=== PATIENT | female | born 1940 | race Caucasian/White ===

== ENCOUNTER → 2017-02-17 09:06 | Outpatient (CLI) | payer MEDICARE, BC ==
[2015-09-11 14:21] VITALS: BMI 28.0
[~2017-02-17 09:06] MED LIST: ANASTROZOLE1 MG PO; ARMOUR THYROID120 MG PO; ATIVAN1 MG OR; EFFEXOR25 MG PO; IPRAT-ALBUT 0.5-3 ML UPD; LASIX20 MG PO; MEGACE 20 MG TA20 MG PO; POTASSIUM20 MEQ/11; ZOFRAN4 MG PO
== END | disposition home or self-care (01) ==
LOC: D.RT 09:00
DX: J45.909 Unspecified asthma, uncomplicated (principal)

== ENCOUNTER → 2017-11-28 13:45 | Outpatient (CLI) | payer MEDICARE, BC ==
[2015-09-11 14:21] VITALS: BMI 28.0
[2017-11-28 15:37] LABS: CREATININE - SERUM 0.7 mg/dL (0.6-1.3)
== END | disposition home or self-care (01) ==
LOC: D.LAB 13:00 → D.RT 14:00
PROVIDERS: Internal Medicine Pulmonary Disease
DX: R07.9 Chest pain, unspecified (principal); J45.909 Unspecified asthma, uncomplicated

== ENCOUNTER → 2018-08-02 13:17 | Outpatient (CLI) | payer MEDICARE, BC ==
[2015-09-11 14:21] VITALS: BMI 28.0
== END | disposition home or self-care (01) ==
LOC: D.RT 13:00
DX: J45.909 Unspecified asthma, uncomplicated (principal)

== ENCOUNTER → 2019-03-01 12:41 | Outpatient (CLI) | payer MEDICARE, BC ==
[2015-09-11 14:21] VITALS: BMI 28.0
== END | disposition home or self-care (01) ==
LOC: D.RT 12:41
PROVIDERS: ATTEND Internal Medicine Pulmonary Disease
DX: J45.909 Unspecified asthma, uncomplicated (principal)

== ENCOUNTER 2019-08-23 13:44 | Inpatient (IN) | payer MEDICARE, BC ==
[~2019-08-23] VITALS: Ht 162.6 cm; Wt 77.9 kg
--- NOTE | ~2019-08-23 | CN ---
PATIENT NAME:SEBASTIAN IRELAND MEDICAL RECORD: [id number] : 38 LOCATION:D.Alanna D.2136 ADMIT DATE: 08/23/19 ACCOUNT: [id number] CONSULTING PHYSICIAN: ERIC CLAUDIO MD REFERRING PHYSICIAN: MILDRED RODGERS MD DATE OF CONSULTATION: 08/23/2019 DIAGNOSES: 1. Non-Q-wave myocardial infarction. 2. Coronary artery disease. 3. Shortness of breath, dyspnea on exertion. 4. Pneumonia. 5. Metastatic breast cancer. 6. Hemoptysis. 7. Chronic obstructive pulmonary disease. 8. Hypertension. HISTORY OF PRESENT ILLNESS: Mrs. Ireland has been more short of breath with a productive cough of discolored sputum for the past 2 days. Today, she started having hemoptysis as well for the past 2 days as well. She has had chest pain. She had severe chest pain last night that awoke her. Her troponin is positive. Her EKG is with no acute ST-T changes. She has a history of coronary artery disease. She had a cardiac catheterization in 2012 with mild coronary artery disease, not enough for an intervention at that time. She is followed by Dr. Russell for her metastatic breast cancer and Dr. Lim for her COPD. Her chest x-ray is compatible with metastatic breast cancer as well as significant pneumonia on the left upper and left lower lobes. PHYSICAL EXAMINATION: CONSTITUTIONAL/GENERAL APPEARANCE: Well nourished, well developed, appears stated age. EYES: Lids and conjunctivae noninjected. No discharge. No pallor. ENT: Lips within normal limit. No cyanosis. No pallor. NECK: Carotid arteries, bilateral normal upstroke. No bruits. No thrills. No jugular venous pressure or distention. CERVICAL LYMPH NODES: Nontender. Nonenlarged. THYROID: Not enlarged. No nodules. CARDIOVASCULAR: Precordial exam, nondisplaced. No heaves or pericardial thrills. Rate and rhythm, regular. Heart sounds, normal S1, normal S2. No S3, no gallop, no rub. Systolic murmur, not heard. Diastolic murmur, not heard. RESPIRATORY: Respiratory effort, unlabored. Normal curvature. No thoracic deformity. No chest wall tenderness. Percussion, resonant. Auscultation, clear. No wheezes, no rales, no rhonchi. ABDOMEN: Soft, nondistended, nontender. No abdominal pain, no vomiting and normal appetite. MUSCULOSKELETAL: No joint tenderness, normal gait, normal tone. SKIN: Warm and dry. OVERALL IMPRESSION: Non-Q-wave myocardial infarction. At this time, we will treat medically secondary to her multiple other medical problems, we will add a nitrate as well as aspirin. The aspirin may have to be discontinued if the hemoptysis worsens. We will continue her beta gilmre with the metoprolol. We will get an echocardiogram. Otherwise, no other cardiac workup or treatment is necessary. Mainstay of treatment will be pulmonary in CONSULT REPORT [id number] SEBASTIAN IRELAND treating the pneumonia. TRANSINT:[id number] Voice Confirmation ID: [id number] DOCUMENT ID: [id number] ERIC CLAUDIO MD CC: [id number] DICTATION DATE: 08/23/19 1543 VIOLIN REPAIRER: 08/24/19 0009 ADM IN [facility] [address] [id number]
[2019-08-23] MEDS ORDERED: MECLIZINE HCL25 MG PO (13:59)
[2019-08-23] MEDS ORDERED: METOPROLOL TART25 MG PO (13:59)
[2019-08-23] MEDS ORDERED: SINGULAIR10 MG PO (13:59)
[2019-08-23] MEDS ORDERED: NULEV0.125 MG PO (14:00)
[2019-08-23] MEDS ORDERED: CARAFATE1 G PO (14:02)
[2019-08-23] MEDS ORDERED: VISTARIL25 MG PO (14:02)
[2019-08-23] MEDS ORDERED: K-DUR20 MEQ PO (14:03)
[2019-08-23] MEDS ORDERED: ZOFRAN ODT4 MG/UDTAB PO (14:04)
[2019-08-23] MEDS ORDERED: [UNRECOGNIZED DRUG - MIXTURE] (14:05)
[2019-08-23] MEDS ORDERED: [UNRECOGNIZED DRUG - OTHER] (14:07)
[2019-08-23] MEDS ORDERED: PEPCID40 MG PO (14:08)
[2019-08-23 14:35] LABS: BASOPHILS 0.2 % (0-2); EOSINOPHILS 0 % (0-7); HEMATOCRIT 35.6 % (36.0-48.0); HEMOGLOBIN 11.6 g/dL (12-16); IMMATURE GRANULOCYTES 0.8 % (0-5); LYMPHOCYTES 3.1 % (15-50); MCH 31.7 pg (26.0-34.0); MCHC 32.6 g/dL (31.0-37.0); MCV 97.3 fL (80.0-100.0); MEAN PLATELET VOLUME 9.7 fL (7.4-10.4); MONOCYTES 5.8 % (2-11); NEUTROPHILS 90.1 % (40-80); PLATELET COUNT 238 10x3/uL (130-400); RBC 3.66 10x6/uL (4.00-5.40); RDW 12.7 % (11.5-14.5); WBC 15.6 10x3/uL (4.8-10.8)
[2019-08-23 14:40] LABS: CALC OSMOLALITY 283 mosm/kg (275-300); CHLORIDE - SERUM 104 mmol/L (98-107); CREATININE - SERUM 1.1 mg/dL (0.6-1.3); POTASSIUM - SERUM 5.1 mmol/L (3.5-5.1); SODIUM 139 mmol/L (136-145); UREA NITROGEN 21 mg/dL (7-18); eGFR NON AFRICAN AMERICAN 51 mL/min (90-120)
[2019-08-23 14:41] LABS: GLUCOSE 149 mg/dL (74-106)
[2019-08-23 14:51] LABS: INR 1.09 (0.85-1.17); PROTIME 14.1 SECONDS (11.6-15.0)
[2019-08-23 14:52] LABS: APTT 27.7 SECONDS (22.8-39.4)
[2019-08-23 15:07] LABS: ALBUMIN 2.6 g/dL (3.4-5.0); ALKALINE PHOSPHATASE 48 U/L (46-116); ALT (SGPT) 15 U/L (10-68); BILIRUBIN - TOTAL 0.53 mg/dL (0.2-1.3); CKMB 2.3 U/L (0.0-3.6); CREATINE KINASE 45 UL (21-215); PRO BNP 5980 pg/mL (0-450); PROTEIN - SERUM 6.7 g/dL (6.4-8.2)
[2019-08-23 15:14] LABS: TROPONIN-I 0.833 ng/mL (0.000-0.060)
[2019-08-23 15:35] LABS: APPEARANCE HAZY (CLEAR); BACTERIA MODERATE /hpf (NEGATIVE); BILIRUBIN NEGATIVE (NEGATIVE); COLOR DK YELLOW (YELLOW); EPITHELIAL CELLS 0-5 /hpf (0-5); GLUCOSE NEGATIVE (NEGATIVE); HYALINE CAST OCC /lpf (NONE SEEN); KETONE NEGATIVE (NEGATIVE); MUCUS <1+ /lpf (NONE SEEN); NITRITE NEGATIVE (NEGATIVE); PROTEIN TRACE mg/dL (NEGATIVE); RED CELLS - URINE NONE SEEN /hpf (0-5); SPECIFIC GRAVITY 1.015 (1.005-1.020); UROBILINOGEN NORMAL (NORMAL); WHITE CELLS - URINE 0-5 /hpf (NEGATIVE)
[2019-08-23 21:19] LABS: CKMB 1.2 U/L (0.0-3.6); CREATINE KINASE 44 UL (21-215)
[2019-08-23 21:20] LABS: TROPONIN-I 1.002 ng/mL (0.000-0.060)
[2019-08-23] MEDS ORDERED: FLUTICASONE PRO16 GM NASAL (22:01)
[2019-08-24] VITALS: BP 133/45
[2019-08-24 02:35] VITALS: BP 140/64; BMI 29.4
[2019-08-24 03:11] LABS: BASOPHILS 0.2 % (0-2); EOSINOPHILS 1.1 % (0-7); HEMATOCRIT 29.5 % (36.0-48.0); HEMOGLOBIN 9.7 g/dL (12-16); IMMATURE GRANULOCYTES 0.3 % (0-5); LYMPHOCYTES 8.8 % (15-50); MCH 31.4 pg (26.0-34.0); MCHC 32.9 g/dL (31.0-37.0); MCV 95.5 fL (80.0-100.0); MEAN PLATELET VOLUME 9.7 fL (7.4-10.4); MONOCYTES 7.7 % (2-11); NEUTROPHILS 81.9 % (40-80); PLATELET COUNT 208 10x3/uL (130-400); RBC 3.09 10x6/uL (4.00-5.40); RDW 12.7 % (11.5-14.5); WBC 12.1 10x3/uL (4.8-10.8)
[2019-08-24 04:00] VITALS: BP 115/47
[2019-08-24 04:01] LABS: CALC OSMOLALITY 278 mosm/kg (275-300); CALCIUM 8.8 mg/dL (8.5-10.1); CARBON DIOXIDE 26.9 mmol/L (21.0-32.0); CHLORIDE - SERUM 105 mmol/L (98-107); CKMB 1.3 U/L (0.0-3.6); CREATINE KINASE 38 UL (21-215); GLUCOSE 99 mg/dL (74-106); MAGNESIUM - SERUM 1.6 mg/dL (1.8-2.4); POTASSIUM - SERUM 4.5 mmol/L (3.5-5.1); SODIUM 138 mmol/L (136-145); TROPONIN-I 0.628 ng/mL (0.000-0.060); UREA NITROGEN 21 mg/dL (7-18); eGFR NON AFRICAN AMERICAN 57 mL/min (90-120)
--- NOTE | 2019-08-24 06:49 | NUR ---
PT RESTING IN BED A/O X4 WITH AT BEDSIDE. PT COMPLAINS OF PAIN WHEN TAKING A BREATH. VSS. BED LOW CALL LIGHT WITHIN REACH. WILL CONTINUE TO MONITOR
--- NOTE | 2019-08-24 07:38 | NUR ---
PATIENT IS RESTING QUIETLY AT THIS TIME. DENIES ANY NEED. FAMILY AT BEDSIDE.
[2019-08-24 09:38] LABS: CKMB 1.5 U/L (0.0-3.6); CREATINE KINASE 33 UL (21-215); TROPONIN-I 0.538 ng/mL (0.000-0.060)
[2019-08-24 09:50] VITALS: BP 90/44
--- NOTE | 2019-08-24 10:52 | NUR ---
02 SAT IS 90% , CALLED RESPIRATORY. PATIENT LOOKS GOOD, SHE IS NOT IN ANY DISTRESS. RESPIRATORY IS ASSESSING HER.
[2019-08-24 15:08] VITALS: Ht 162.6 cm; Wt 77.9 kg
[2019-08-24 17:23] VITALS: BP 105/48
--- NOTE | 2019-08-24 17:26 | NUR ---
PATIENT IS RESTING ON HER BACK IN BED. AT BEDSIDE. SHE HAS BEEN REQUESTING A SHOWER, HOWEVER SHE IS GETTING ANTIBIOTICS BACK TO BACK, AND IT IS NOT GOOD TIMING . WE WILL ALLOW HER TO SHOWER SOON IT IS SAFE FOR HER.
--- NOTE | 2019-08-24 19:28 | NUR ---
GREETED PATIENT AND INTRODUCED MYSELF HER NURSE. PATIENT IS LAYING IN BED RESTING QUIETLY. AOX4. RESPIRATIONS EVEN. NO S/S OF DISTRESS. STATES NO PAIN AT THIS TIME. DENIES ANY FURTHER NEEDS. CALL LIGHT IN REACH.
[2019-08-24 20:00] VITALS: BP 147/58
--- NOTE | 2019-08-24 23:21 | NUR ---
PT. RESTING QUIETLY WITH EYES CLOSED. RESPIRATIONS EVEN. NO S/S OF DISTRESS. CALL LIGHT IN REACH.
--- NOTE | 2019-08-24 23:30 | NUR ---
DC INFILTRATED PERIPHERAL IV IN RIGHT WRIST. PT. TOLERATED PROCEDURE.
[2019-08-25] VITALS: BP 128/50
--- NOTE | 2019-08-25 00:06 | NUR ---
NEW 22 GAUGE PERIPHERAL IV IN RIGHT FOREARM, SECOND ATTEMPT. PT. TOLERATED PROCEDURE.
--- NOTE | 2019-08-25 02:05 | NUR ---
PT. RESTING QUIETLY WITH EYES CLOSED. RESPIRATIONS EVEN. NO S/S OF DISTRESS. O2 AT 4L IN USE VIA NC. CALL LIGHT IN REACH.
[2019-08-25 04:00] VITALS: BP 103/52
[2019-08-25 06:46] LABS: BASOPHILS 0.4 % (0-2); EOSINOPHILS 2.5 % (0-7); HEMATOCRIT 29.4 % (36.0-48.0); HEMOGLOBIN 9.6 g/dL (12-16); IMMATURE GRANULOCYTES 0.5 % (0-5); LYMPHOCYTES 6.6 % (15-50); MCH 31.4 pg (26.0-34.0); MCHC 32.7 g/dL (31.0-37.0); MCV 96.1 fL (80.0-100.0); MEAN PLATELET VOLUME 9.5 fL (7.4-10.4); MONOCYTES 6.5 % (2-11); NEUTROPHILS 83.5 % (40-80); PLATELET COUNT 237 10x3/uL (130-400); RBC 3.06 10x6/uL (4.00-5.40); RDW 12.9 % (11.5-14.5); WBC 10.4 10x3/uL (4.8-10.8)
--- NOTE | 2019-08-25 07:21 | NUR ---
PT ALERT AND ORIENTED, UP BY SELF TO THE BATHROOM. SON AND AT BEDSIDE. UPON EXITING THE BATHROOM PT STATES "I HAVE SOME GOOD NEWS FOR YOU, WELL NOT GOOD NEWS I GUESS. I WENT TO THE BATHROOM AND ACCIDENTLY PULLED ANOTHER I/V OUT! I DIDN'T SAY ANYTHING TO JAXON (NIGHT RN) BECAUSE SHE WAS BUSY BUT I'LL TELL YOU". WILL RESITE SOON POSSIBLE. CL IN REACH, SRX2.
[2019-08-25 07:29] LABS: CALCIUM 8.2 mg/dL (8.5-10.1); CARBON DIOXIDE 26.9 mmol/L (21.0-32.0); CREATININE - SERUM 0.8 mg/dL (0.6-1.3); MAGNESIUM - SERUM 1.7 mg/dL (1.8-2.4); POTASSIUM - SERUM 3.9 mmol/L (3.5-5.1)
--- NOTE | 2019-08-25 09:21 | NUR ---
PT ALERT AND ORIENTED. STATES SHE WANTS TO WAIT UNTIL AFTER BREAKFAST TO GET NEW I/V, WILL ACCOMIDATE. NO COMPLAITNS/CONCERNS OR QUESTIONS AT THIS TIME. AT BEDSIDE. TOOK PILLS WIHTOUT DIFFICULTY OR ASSISTANCE. CL INR EACH, SRX2.
[2019-08-25 10:12] VITALS: BP 136/51
--- NOTE | 2019-08-25 11:44 | NUR ---
PT AWAKE AND ORIENTED, LYING IN BED, AT BEDSIDE. NO COMPLAINTS/CONCERNS, ALL QUESTIONS ANSWERED TO THE BEST OF MY ABILITY. CL IN REACH, SRX2.
[2019-08-25 12:00] VITALS: BP 114/40
--- NOTE | 2019-08-25 13:16 | NUR ---
PLACED 20G L AC. ONE STICK.
--- NOTE | 2019-08-25 15:11 | NUR ---
PT IS ALERT AND ORIENTED, PHYSICAL THERAPY IN ROOM. PT IS COOPERATIVE AND AMIABLE. NO COMPLAINTS OR CONCERNS AT THIS TIME. CL IN REACH, SRX2. NO FAMILY AT BEDSIDE.
--- NOTE | 2019-08-25 18:04 | NUR ---
I CONCUR WITH THE DAIRY FARMWORKER ASSESSMENT OF THIS PATIENT.
[2019-08-25 18:09] VITALS: BP 124/47
--- NOTE | 2019-08-25 18:26 | NUR ---
PT LYINGIN BED, AT BEDSIDE. NO COMPLAINTS OR CONCERNS, STATES SHE'S HOPEFULL TO GO HOME IN THE NEXT COUPLE OF DAYS. ALL QUESTIONS ANSWERED TO THE BEST OF MY ABILTIY. I/V INTACT, WORKING WNL. CL IN REACH, SRX2.
[2019-08-25 20:00] VITALS: BP 132/45
--- NOTE | 2019-08-25 20:08 | NUR ---
RECIEVED UP IN BED ON TELEPHONE. ENDED CALL WHEN THIS NURSE ENTERED ROOM. ALERT AND ORINTED X4. ANIAK AND STATES " I HAVE TO SEE YOUR LIPS". WEARS GLASSES. TELEMETRY IN PLACE. EXPIRATORY WHEEZES IN ALL LUNG COTE. IV TO LEFT FA WITH NS AT 100CC/HR. NO REDNESS OR SWELLING TO SITE AND DSG CDI. DENIES ANY NEEDS AT THIS TIME.
[2019-08-26 04:00] VITALS: BP 146/55
[2019-08-26 06:53] LABS: BASOPHILS 0.6 % (0-2); EOSINOPHILS 3.4 % (0-7); HEMATOCRIT 28.9 % (36.0-48.0); HEMOGLOBIN 9.4 g/dL (12-16); IMMATURE GRANULOCYTES 1.2 % (0-5); LYMPHOCYTES 9.7 % (15-50); MCH 31.3 pg (26.0-34.0); MCHC 32.5 g/dL (31.0-37.0); MCV 96.3 fL (80.0-100.0); MEAN PLATELET VOLUME 9.6 fL (7.4-10.4); MONOCYTES 5.9 % (2-11); NEUTROPHILS 79.2 % (40-80); PLATELET COUNT 251 10x3/uL (130-400); RDW 12.8 % (11.5-14.5); WBC 8.3 10x3/uL (4.8-10.8)
[2019-08-26 07:25] LABS: CALC OSMOLALITY 280 mosm/kg (275-300); CALCIUM 8.2 mg/dL (8.5-10.1); CARBON DIOXIDE 26.5 mmol/L (21.0-32.0); CHLORIDE - SERUM 109 mmol/L (98-107); CREATININE - SERUM 0.6 mg/dL (0.6-1.3); GLUCOSE 107 mg/dL (74-106); MAGNESIUM - SERUM 1.8 mg/dL (1.8-2.4); POTASSIUM - SERUM 3.9 mmol/L (3.5-5.1); SODIUM 142 mmol/L (136-145); eGFR NON AFRICAN AMERICAN > 90 mL/min (90-120)
--- NOTE | 2019-08-26 07:30 | NUR ---
A/A/OX4. DENIES ANY PAIN OR DISCOMFORT AT PRESENT TIME. 02 ON PER N/C AT 4 L/M WITH NO RESP DISTRESS NOTED. UP AND ABOUT IN ROOM WITH STEADY GAIT. IV PATENT TO LEFT FOREARM WITHOUT REDNESS OR EDEMA AT SITE. ASSESSMENT COMPLETED AND WILL CONTINUE POC. CALL LIGHT IN REACH AND BED IN LOW POSITION.
[2019-08-26 07:31] LABS: UREA NITROGEN 8 mg/dL (7-18)
[2019-08-26 08:09] VITALS: BP 152/63
[2019-08-26 12:18] VITALS: BP 138/42
--- NOTE | 2019-08-26 14:44 | NUR ---
RESTING IN BED WITH ATTENTION TOWARD TELEVISION. RESP EVEN AND UNLABORED. NO DISTRESS. CALL LIGHT WITHIN REACH. PATIENT SPOUSE AT BEDSIDE. I CONCUR WITH SECURITY SERVICES SPECIALIST ASSESSMENT.
[2019-08-26 17:44] VITALS: BP 137/48
--- NOTE | 2019-08-26 19:52 | NUR ---
RECIEVED UP IN BED WITH EYES OPEN. ALERT AND ORIENTED X4. UP WITH ASSIST. O2@ 4 LITERS PER N/C IN PLACE. IV TO LEFT FA WITH NS AT 100CC/HR. TELEMETRY IN PLACE. DENIES ANY NEEDS A THIS TIME.
--- NOTE | 2019-08-26 19:54 | NUR ---
ASKED ABOUT SPUTUM FOR CULTURE. PT STATES " I CAN'T I'M NOT ABLE TO GET ANYTHING UP".
[2019-08-26 20:14] VITALS: BP 137/49
[2019-08-27] VITALS: BP 135/54
[2019-08-27 04:28] VITALS: BP 164/67
[2019-08-27 05:26] LABS: BASOPHILS 0.4 % (0-2); EOSINOPHILS 5.5 % (0-7); HEMATOCRIT 29.9 % (36.0-48.0); HEMOGLOBIN 9.7 g/dL (12-16); IMMATURE GRANULOCYTES 3.4 % (0-5); LYMPHOCYTES 10.9 % (15-50); MCHC 32.4 g/dL (31.0-37.0); MCV 95.5 fL (80.0-100.0); MEAN PLATELET VOLUME 9.6 fL (7.4-10.4); NEUTROPHILS 72.8 % (40-80); PLATELET COUNT 301 10x3/uL (130-400); RBC 3.13 10x6/uL (4.00-5.40); RDW 12.9 % (11.5-14.5)
[2019-08-27 05:45] LABS: CALC OSMOLALITY 282 mosm/kg (275-300); CALCIUM 7.9 mg/dL (8.5-10.1); CHLORIDE - SERUM 108 mmol/L (98-107); CREATININE - SERUM 0.7 mg/dL (0.6-1.3); GLUCOSE 101 mg/dL (74-106); MAGNESIUM - SERUM 1.8 mg/dL (1.8-2.4); POTASSIUM - SERUM 3.8 mmol/L (3.5-5.1); SODIUM 143 mmol/L (136-145); UREA NITROGEN 7 mg/dL (7-18); eGFR NON AFRICAN AMERICAN 85 mL/min (90-120)
[2019-08-27 10:09] VITALS: BP 117/58
--- NOTE | 2019-08-27 10:27 | NUR ---
PT AWAKE AND ORIENTED, HAS BEEN UP AND AROUND HER ROOM. NO COMPLAINTS/CONCERNS, HOPEFULL TO GO HOME SOON. NO FAIMILY ATBEDSIDE. NO QUESTIONS OR CONCERNS AT THIS TIME. CL IN REACH, SRX2.
--- NOTE | 2019-08-27 12:12 | NUR ---
I have reviewed this patient and I concur with the Shift Assessment completed by the Licensed Practical Nurse today this shift.
--- NOTE | 2019-08-27 12:18 | EC ---
PATIENT:SEBASTIAN RICHEY DATE OF SERVICE: 08/23/19 SEX: F MEDICAL RECORD: [id number] DATE OF : 38 LOCATION:D.M2 D.213 AGE OF PATIENT: 78 ADMISSION DATE: 08/23/19 REFERRING PHYSICIAN: INTERPRETING PHYSICIAN: LANE KITCHEN MD ECHOCARDIOGRAM REPORT ECHO CHARGES 4 ECHO COMPLETE Date: 08/24/19 CLINICAL DIAGNOSIS: NC ECHOCARDIOGRAPHIC MEASUREMENTS (adult normal given) AC root (d.<3.7cm) 2.9 cm LV Septum d (<1.2 cm> 1.7 cm Valve Excursion 1.8 cm LV Septum (systole) 1.8 cm Left Atria (s.<4.0cm> 3.1 cm LVPW d(<1.2cm) 0.9 cm RV (d.<2.3cm) 3.1 cm LVPW (sytole) 1.1 cm LV diastole(<5.6CM) 3.9 cm MV E-F(>70mm/sec) cm LV systole 2.9 cm LVOT Diameter 1.9 cm MV exc.(>10mm) cm Est.ejection fraction (50-75%) % DOPPLER: LVIT cm/sec A 110 cm/sec E 77 cm/sec LA cm/sec RVSP 19.8 mmHg LVOT 124 cm/sec AOP1/2T m/s Asc. Ao 165 cm/sec RVOT 75 cm/sec RA cm/sec PA 104 cm/sec AV Gradient Peak 10.8 mmHg AV Mean 6.2 mmHg AV Area 2.7 cm MV Gradient Peak 4.4 mmHg MV Mean 2.2 mmHg MV Area cm COMMENTS: Ecmo Specialist: Lucho [facility] Medical Office Representative: 3 Dr. Sarkar TAPE# PACS Pericardial Effusion N DATE OF SERVICE: Adequate 2D, color flow imaging, spectral Doppler, and M-Mode. LVH is present. LV internal dimensions are normal. Wall motion is normal. EF is greater than or equal to 55%. Aortic valve is tricuspid. No evidence of stenosis by Doppler interrogation. Left atrium is normal. Mitral valve shows no prolapse. Mild MR. Right-sided chambers are grossly normal. Trace TR. TRANSINT:[id number] Voice Confirmation ID: [id number] DOCUMENT ID: [id number] ECHOCARDIOGRAM REPORT [id number] SEBASTIAN RICHEY LANE KITCHEN MD at 1218 CC: [id number] DICTATION DATE: 08/25/19 1012 CEPHALOMETRIC TRACER: 08/25/19 1231 ADM IN [address] [place] [address]
[2019-08-27 13:01] VITALS: BP 126/54
[2019-08-27 13:13] LABS: % SATURATION 20 % (15-55); IRON 31 ug/dl (35-150); TOTAL IRON BIND CAPACITY 153 ug/dl (260-445); UNSAT IRON BIND CAPACITY 122 ug/dl (150-375)
--- NOTE | 2019-08-27 14:27 | NUR ---
PT I/V LEAKING, REMOVED TIP INTACT. WILL RESITE.
--- NOTE | 2019-08-27 15:09 | NUR ---
Nutrition Follow-up: Nausea improving. States "I don't care about eating". Diet: Cardiac PO intake: 50-100% (may be inaccurate; pt reports drinking Boost so possibly portion of meals as well) Wt: 171# (08/26) Last BM: 08/27 Labs reviewed Meds reviewed -Rec appetite stimulant. -Monitor wt; noted daily wts ordered. -RD following.
[2019-08-27 16:55] VITALS: BP 143/63
--- NOTE | 2019-08-27 19:39 | NUR ---
RECEIVED UP IN BED WITH EYES OPEN AND TV ON. SPOUSE AT BEDSIDE. ALERT AND ORIENTED X4. UP WITH ASSIST TO B/R. IV TO RIGHT FA SL. TELEMETRY IN PLACE. NIKOLAI AND WEARS GLASSES. O2@ 4 LITERS PER N/C IN PLACE. DENIES ANY NEEDS AT THIS TIME.
[2019-08-27 20:30] VITALS: BP 157/55
[2019-08-28 00:30] VITALS: BP 157/62
[2019-08-28 04:30] VITALS: BP 186/81
[2019-08-28 07:00] LABS: BASOPHILS 0.5 % (0-2); EOSINOPHILS 6.5 % (0-7); HEMOGLOBIN 9.4 g/dL (12-16); IMMATURE GRANULOCYTES 3.2 % (0-5); MCH 30.4 pg (26.0-34.0); MCHC 32.4 g/dL (31.0-37.0); MCV 93.9 fL (80.0-100.0); MONOCYTES 7.1 % (2-11); NEUTROPHILS 70.7 % (40-80); PLATELET COUNT 288 10x3/uL (130-400); RBC 3.09 10x6/uL (4.00-5.40); RDW 12.9 % (11.5-14.5); WBC 7.5 10x3/uL (4.8-10.8)
[2019-08-28 07:22] LABS: CALC OSMOLALITY 286 mosm/kg (275-300); CALCIUM 8.3 mg/dL (8.5-10.1); CARBON DIOXIDE 27.1 mmol/L (21.0-32.0); CHLORIDE - SERUM 111 mmol/L (98-107); CREATININE - SERUM 0.6 mg/dL (0.6-1.3); GLUCOSE 93 mg/dL (74-106); MAGNESIUM - SERUM 1.9 mg/dL (1.8-2.4); POTASSIUM - SERUM 3.7 mmol/L (3.5-5.1); SODIUM 145 mmol/L (136-145); UREA NITROGEN 6 mg/dL (7-18); eGFR NON AFRICAN AMERICAN > 90 mL/min (90-120)
--- NOTE | 2019-08-28 07:28 | NUR ---
REPORT RECEIVED. WILL CONTINUE WITH POC. PT CURRENTLY LYING SEMI FOWLERS. CALL LIGHT W/I REACH. PT IS ASLEEP WITH EYES CLOSED AT THIS TIME. RR EVEN AND UNLABORED ON 4L 02. R.FOR PIV IS SALINE LOCKED. NO S/S OF DISTRESS NOTED. WILL CTM.
[2019-08-28 09:58] VITALS: BP 168/87
[2019-08-28 14:40] VITALS: BP 176/70
--- NOTE | 2019-08-28 15:29 | NUR ---
I have reviewed this patient and I concur with the Shift Assessment completed by the Licensed Practical Nurse today this shift.
--- NOTE | 2019-08-28 15:39 | NUR ---
20GA PIV PLACED TO THE LEFT FOREARM X1 ATTEMPT FOR CHEST CT. PT TOLERATED WELL. FLUSHED WITH 10ML OF NS TO CONFIRM PATENCY. WILL CTM.
--- NOTE | 2019-08-28 19:08 | NUR ---
RECEIVED UP IN BED WITH EYES OPEN AND TV ON. SPOUSE AND NEPHEW AT BEDSIDE. ALERT AND ORIENTED X4. UP TO B/R WITH ASSIST. O2@ 4 LITERS PER N/C. IV TO RIGHT AND LEFT FA. [place] AND WEARS GLASSES. DENIES ANY NEEDS AT THIS TIME.
[2019-08-28 20:45] VITALS: BP 143/51
[2019-08-29 01:05] VITALS: BP 129/53
[2019-08-29 04:45] VITALS: BP 171/63
[2019-08-29 05:23] LABS: BASOPHILS 0.4 % (0-2); EOSINOPHILS 5.3 % (0-7); HEMATOCRIT 28.8 % (36.0-48.0); HEMOGLOBIN 9.6 g/dL (12-16); IMMATURE GRANULOCYTES 3.2 % (0-5); LYMPHOCYTES 15.5 % (15-50); MCH 31.1 pg (26.0-34.0); MCHC 33.3 g/dL (31.0-37.0); MCV 93.2 fL (80.0-100.0); MEAN PLATELET VOLUME 9.3 fL (7.4-10.4); MONOCYTES 7.2 % (2-11); NEUTROPHILS 68.4 % (40-80); PLATELET COUNT 312 10x3/uL (130-400); RBC 3.09 10x6/uL (4.00-5.40); RDW 12.9 % (11.5-14.5); WBC 8.1 10x3/uL (4.8-10.8)
[2019-08-29 05:25] LABS: CALC OSMOLALITY 280 mosm/kg (275-300); CALCIUM 8.1 mg/dL (8.5-10.1); CARBON DIOXIDE 28.8 mmol/L (21.0-32.0); CHLORIDE - SERUM 107 mmol/L (98-107); CREATININE - SERUM 0.7 mg/dL (0.6-1.3); GLUCOSE 82 mg/dL (74-106); POTASSIUM - SERUM 3.6 mmol/L (3.5-5.1); SODIUM 143 mmol/L (136-145); UREA NITROGEN 5 mg/dL (7-18); eGFR NON AFRICAN AMERICAN 85 mL/min (90-120)
--- NOTE | 2019-08-29 07:44 | NUR ---
REPORT RECEIVED FROM DIRECTOR OF EMAIL MARKETING AND PATIENT CARE ASSUMED. PATIENT LAYING IN BED ON BACK WITH EYES CLOSED AND BREATHING EVENLY. WILL CONTINUE WITH PLAN OF CARE. SR UP X 2 BED IN LOW POSITION AND CALL LIGHT IN REACH.
[2019-08-29 10:21] VITALS: BP 126/61
--- NOTE | 2019-08-29 12:02 | NUR ---
UPON ADMIT, PATIENT HAS NOT HAD A FLU SHOT. WHEN QUESTIONED, SHE REFUSED.
--- NOTE | 2019-08-29 13:00 | NUR ---
ORDERS RECEIVED FOR DC. PATIENT IS STABLE AND VSS. PATIENT DENIES ANY NEEDS OR PAIN. WRITTEN AND VERBAL INSTGRUCTIONS GIVEN TO PATIENT AND SPOUSE. BOTH VERBALIZED UNDERSTANDING AND PATIENT SIGNED PAPERS. IV DCD WITHOUT DIFFICULTY WITH ENTIRE CATHETER INTACT. PATIENT STATES THAT SHE WILL NOT HAVE A RIDE IN AFTER 1500 TODAY.
[2019-08-29 14:52] VITALS: BP 132/58
--- NOTE | 2019-08-29 16:50 | NUR ---
PATIENT RIDE HERE. PATIENT IS STABLE AND VSS. PATIENT DENIES ANY NEEDS OR PAIN. PATIENT TO FRONT DOOR VIA WC ACCOMPANIED BY HOSPITAL PERSONNEL AND FAMILY. PATIENT TO P;[employer] VEHICLE DRIVEN BY FAMILY MEMBER. PATIENT IS DCD TO HOME FOR SELF CARE.
--- NOTE | 2019-08-29 18:10 | MORECARE ---
CASE MANAGEMENT DISCHARGE SUMMARY PATIENT: SEBASTIAN RICHEY UNIT: [id number] ADM DATE: 08/23/19 AGE: 78 : 39 SEX: F ROOM/BED: D.2846 AUTHOR: THUAN,DOC PHYSICIAN: REFERRING PHYSICIAN: MILDRED RODGERS MD DATE OF SERVICE: 08/29/19 Discharge Plan Patient Name: SEBASTIAN RICHEY Facility: [facility]:[place] : 1940 Planned Disposition: Home Anticipated Discharge Date: 08/29/19 Discharge Date: 08/29/2019 Expected LOS: 6 Initial Reviewer: [email or web address] Initial Review Date: 08/29/2019 Generated: 08/29/19 7:10 pm Comments DCP- Discharge Planning Updated by [id number]: Sebastien Coe on 08/29/19 5:[address] Patient Name: SEBASTIAN RICHEY Admission Status: ER Accout number: [id number] Admission Date: 08-23-2019 : 1940 Admission Diagnosis: Attending: BRIDGETT Current LOS: 6 Anticipated DC Date: 08-29-2019 Planned Disposition: Home Primary Insurance: MEDICARE A & B Discharge Planning Comments: CM MET WITH PT IN ROOM TO DISCUSS DISCHARGE PLANNING AND NEEDS. PT REPORTS LIVING AT HOME INDEPENDENTLY WITH HER SPOUSE WHO HAS DEMENTIA WHOM PT IS CAREGIVER FOR. PT HAS NEBULIZER AND HOME / PORTABLE OXGYEN FROM [employer]. PT HAS NO OUTSIDE SERVICES ASSISTING IN THE HOME. CM DISCUSSED AVAILABILITY OF HOME HEALTH, REHAB SERVICES AND MEDICAL EQUIPMENT. PT DENIES DISCHARGE NEEDS, REPORTS HER GRANDSON SON WILL PICK HER AND SPOUSE UP FOR DISCHARGE HOME. IMPORTANT MESSAGE FROM MEDICARE PROVIDED AND EXPLAINED. PT ASKED ABOUT HOME MEALS AND PERSONAL CARE FOR HER SPOUSE. CM EDUCATED PT ON AVAILABILITY OF AGUEDA THROUGH [employer] WHO ALSO ADMINISTERS MEALS ON WHEELS PROGRAM. CM PROVIDED NAME OF FELIX SALAS OF [employer] AND PHONE NUMBER TO CONTACT. PT'S SPOUSE DENIES FURTHER NEEDS. CM NOTIFIED BONE CHAR KILN OPERATOR NURSE. Steam Fitter: Sebastien Coe DCPIA - Discharge Planning Initial Assessment Updated by [email or web address]: Sebastien Coe on 08/29/19 6:07 pm * Is the patient Alert and Oriented? Yes * How many steps to enter\exit or inside your home? NONE * PCP DR. LOVE * Pharmacy [facility] * Preadmission Environment Home with Family * ADLs Independent * Equipment Nebulizer Oxygen * Other Equipment HOME AND PORTABLE OXGYEN [employer] * List name and contact numbers for known caregivers / representatives who currently or will assist patient after discharge: ODETTE TORRES, * Verbal permission to speak to the caregivers and representatives has been obtained from the patient. N/A * Community resources currently utilized None * Please name any agencies selected above. NONE * Additional services required to return to the preadmission environment? No * Can the patient safely return to the preadmission environment? Yes * Has this patient been hospitalized within the prior 30 days at any hospital? No Patient Name: SEBASTIAN RICHEY Page [phone] at 1810 All edits/amendments must be made on the electronic document DICTATION DATE: 08/29/191809 ROCKET ENGINE TESTER: WILLARD 08/29/191809 RPT#: [id number] DC DATE:08/29/19 STATUS: DIS IN [facility] [address] [place] [address] END OF REPORT
== END 2019-08-29 16:52 | disposition home or self-care (01) | DRG 193 ==
LOC: D.ER 13:44 → D.M2 17:34
PROVIDERS: Family Medicine; Internal Medicine Nephrology; ADMIT Family Medicine; ATTEND Family Medicine
DX: J18.9 Pneumonia, unspecified organism (principal); I21.4 Non-ST elevation (NSTEMI) myocardial infarction; J96.21 Acute and chronic respiratory failure with hypoxia; J44.0 Chronic obstructive pulmonary disease with (acute) lower respiratory infection; R04.2 Hemoptysis; N39.0 Urinary tract infection, site not specified; J44.1 Chronic obstructive pulmonary disease with (acute) exacerbation; E03.9 Hypothyroidism, unspecified; D64.9 Anemia, unspecified; I25.10 Atherosclerotic heart disease of native coronary artery without angina pectoris

== ENCOUNTER → 2019-09-12 13:56 | Outpatient (CLI) | payer MEDICARE, BC ==
[2019-08-24 15:08] VITALS: BMI 29.3
[~2019-09-12 13:56] MED LIST changes: +CARAFATE1 G PO; +FLUTICASONE PRO16 GM NASAL; +K-DUR20 MEQ PO; +MECLIZINE HCL25 MG PO; +METOPROLOL TART25 MG PO; +NULEV0.125 MG PO; +PEPCID40 MG PO; +SINGULAIR10 MG PO; +VISTARIL25 MG PO; +ZOFRAN ODT4 MG/UDTAB PO; +[UNRECOGNIZED DRUG - MIXTURE]; +[UNRECOGNIZED DRUG - OTHER]
== END | disposition home or self-care (01) ==
LOC: D.RT 08-22 10:00 → D.RAD 08-22 10:15 → D.RT 09-06 14:00 → D.RAD 09-06 14:00 → D.RT 14:00
PROVIDERS: ATTEND Internal Medicine Pulmonary Disease
DX: J45.909 Unspecified asthma, uncomplicated (principal)

== ENCOUNTER 2019-10-10 15:56 | Inpatient (IN) | payer MEDICARE, BC ==
[~2019-10-10] VITALS: Ht 162.6 cm; Wt 76.4 kg
[2019-10-10] MEDS ORDERED: RIBOCICLIB (16:05)
[2019-10-10 16:22] LABS: EOSINOPHILS 0.7 % (0-7); HEMOGLOBIN 11.1 g/dL (12-16); IMMATURE GRANULOCYTES 0.1 % (0-5); MCH 31.2 pg (26.0-34.0); MCHC 32.6 g/dL (31.0-37.0); MCV 95.5 fL (80.0-100.0); MEAN PLATELET VOLUME 9.6 fL (7.4-10.4); MONOCYTES 4.8 % (2-11); NEUTROPHILS 87.4 % (40-80); RBC 3.56 10x6/uL (4.00-5.40); RDW 16.1 % (11.5-14.5); WBC 6.9 10x3/uL (4.8-10.8)
[2019-10-10 16:23] LABS: PLATELET COUNT 248 10x3/uL (130-400)
[2019-10-10 16:30] LABS: INR 1.02 (0.85-1.17); PROTIME 13.3 SECONDS (11.6-15.0)
[2019-10-10 16:31] LABS: APTT 28.9 SECONDS (22.8-39.4)
[2019-10-10 16:56] LABS: CALC OSMOLALITY 282 mosm/kg (275-300); CARBON DIOXIDE 27.7 mmol/L (21.0-32.0); CHLORIDE - SERUM 104 mmol/L (98-107); CREATININE - SERUM 1.4 mg/dL (0.6-1.3); POTASSIUM - SERUM 3.8 mmol/L (3.5-5.1); SODIUM 140 mmol/L (136-145); UREA NITROGEN 13 mg/dL (7-18); eGFR NON AFRICAN AMERICAN 38 mL/min (90-120)
[2019-10-10 17:02] LABS: GLUCOSE 179 mg/dL (74-106)
[2019-10-10 17:25] LABS: ALBUMIN 3.5 g/dL (3.4-5.0); ALKALINE PHOSPHATASE 70 U/L (30-120); ALT (SGPT) 17 U/L (10-68); BILIRUBIN - TOTAL 0.51 mg/dL (0.2-1.3); CKMB 1.9 U/L (0.0-3.6); CREATINE KINASE 54 UL (21-215); MAGNESIUM - SERUM 1.6 mg/dL (1.8-2.4); PRO BNP 689 pg/mL (0-450); PROTEIN - SERUM 7.1 g/dL (6.4-8.2)
[2019-10-10 17:29] LABS: TROPONIN-I 0.141 ng/mL (0.000-0.060)
[2019-10-10 18:01] VITALS: BP 166/59
--- NOTE | 2019-10-10 18:26 | NUR ---
PATIENT STATES NO ALLERGY TO MORPHINE, IT JUST MADE HER "SLUGGISH".
[2019-10-10 18:30] VITALS: BP 129/68
--- NOTE | 2019-10-10 19:20 | NUR ---
DILTAZEM RESTARTED AT 10MG/HR PER EDP. LEFT AC 20 GA. PT TOLERATED WELL HEART RATE 132 BP 102/61 WILL CONTINUE TO MONITOR.
[2019-10-10 19:21] VITALS: BP 102/61
[2019-10-10 19:24] VITALS: BP 102/61
[2019-10-10 20:04] VITALS: BP 130/52
--- NOTE | 2019-10-10 21:45 | NUR ---
REVIEVED REPORT FROM PHILLIP IN ER.
[2019-10-10 22:27] LABS: CKMB 2.9 U/L (0.0-3.6); CREATINE KINASE 61 UL (21-215)
[2019-10-10 22:28] LABS: TROPONIN-I 0.325 ng/mL (0.000-0.060)
[2019-10-10] MEDS ORDERED: KISQALI (22:49)
[2019-10-11 04:00] VITALS: BP 127/44
--- NOTE | 2019-10-11 04:22 | NUR ---
RESTING WITH EYES CLOSED, RESPERATIONS EVEN, NO S/S DISTRESS NOTED.
[2019-10-11 05:22] LABS: CKMB 3.9 U/L (0.0-3.6); CREATINE KINASE 105 UL (21-215)
[2019-10-11 05:34] LABS: TROPONIN-I 0.246 ng/mL (0.000-0.060)
--- NOTE | 2019-10-11 07:53 | NUR ---
RECIEVED REPORT. PATIENT IS ALERT AND AWAKE. SHE IS STILL ON HER DRIPS. SHE IS HAVING A ANGELINA SCAN THIS MORNING. DENIES ANY NEEDS AT THIS TIME.
[2019-10-11 09:21] LABS: CKMB 3.3 U/L (0.0-3.6); CREATINE KINASE 111 UL (21-215)
[2019-10-11 09:25] LABS: TROPONIN-I 0.176 ng/mL (0.000-0.060)
[2019-10-11 10:13] VITALS: BP 127/43
[2019-10-11 14:16] VITALS: BMI 28.8
[2019-10-11 14:35] VITALS: BP 131/43
--- NOTE | 2019-10-11 16:04 | NUR ---
PATIENT IS RESTING QUIETLY. DENIES ANY NEEDS AT THIS TIME.
[2019-10-11 18:06] VITALS: BP 137/45; Ht 162.6 cm; Wt 76.4 kg
[2019-10-11 18:10] VITALS: BP 137/45
[2019-10-11 20:00] VITALS: BP 132/49
[2019-10-12] VITALS: BP 114/72
--- NOTE | 2019-10-12 00:37 | NUR ---
RESTING WITH EYES CLOSED, RESPERATIONS EVEN, NO S/S DISTRESS NOTED.
--- NOTE | 2019-10-12 03:34 | NUR ---
I have reviewed this patient and I concur with the Shift Assessment completed by the Licensed Practical Nurse today this shift.
[2019-10-12 04:00] VITALS: BP 147/52
[2019-10-12 09:32] VITALS: BP 170/57
[2019-10-12 10:06] VITALS: BP 152/52
[2019-10-12 14:01] VITALS: BP 146/41
[2019-10-12] MEDS ORDERED: PACERONE200 MG PO (14:49)
--- NOTE | 2019-10-12 16:42 | MORECARE ---
CASE MANAGEMENT DISCHARGE SUMMARY PATIENT: SEBASTIAN RICHEY UNIT: [id number] ADM DATE: 10/11/19 AGE: 79 : 39 SEX: F ROOM/BED: D.5113 AUTHOR: AMIRAH LAROSE PHYSICIAN: REFERRING PHYSICIAN: CHAD PAUL M.D. DATE OF SERVICE: 10/12/19 Discharge Plan Patient Name: SEBASTIAN RICHEY Facility: [facility]:[place] : 1940 Planned Disposition: Anticipated Discharge Date: Discharge Date: Expected LOS: Initial Reviewer: [email or web address] Initial Review Date: 10/12/2019 Generated: 10/12/19 5:42 pm Comments DCP- Discharge Planning Updated by [email or web address]: Pamela Harrell on 10/12/19 3:[address] Patient Name: SEBASTIAN RICHEY Admission Status: ER Accout number: [id number] Admission Date: 10-11-2019 : 1940 Admission Diagnosis: Attending: CHAD PAUL Current LOS: 1 Anticipated DC Date: Planned Disposition: Primary Insurance: MEDICARE A & B Discharge Planning Comments: CM MET WITH PATIENT AFTER OBTAINING VERBAL CONSENT. PATIENT PLANS TO DC TO HOME TODAY. DENIES NEED FOR REHAB, HH OR EQUIPMENT. FAMILY AT BEDSIDE FOR TRANSPORT HOME. Watch Guard Gate: Pamela Harrell DCPIA - Discharge Planning Initial Assessment Updated by [email or web address]: Pamela Harrell on 10/12/19 4:37 pm * Is the patient Alert and Oriented? Yes * PCP KATE * Pharmacy [facility] * Preadmission Environment Home Alone * ADLs Independent * Other Equipment 02, NEBS, OBRIENS * Additional services required to return to the preadmission environment? No * Can the patient safely return to the preadmission environment? Yes * Has this patient been hospitalized within the prior 30 days at any hospital? No Coverage Notice Reviewer: [id number] Avery Umana Notice Issued Date-Time: 10/11/2019 13:00 Notice Type: Medicare Outpatient Observation Notice Notice Delivered To: Patient Relationship to Patient: Content Coordinator Name: Delivery Method: HAND - Hand Delivered Megan Days: Prior Verbal Notification: Recipient Understood Notice: Yes Recipient Signature: Yes Med Rec Note Co-signed by Attending: Coverage Notice Comment: Patient Name: SEBASTIAN RICHEY Page [phone] at 1642 All edits/amendments must be made on the electronic document DICTATION DATE: 10/12/191641 MEAT PRESS OPERATOR: WILLARD 10/12/191641 RPT#: [id number] DC DATE: STATUS: ADM IN [facility] [address] [place] [address] END OF REPORT
--- NOTE | 2019-10-15 09:28 | MORECARE ---
CASE MANAGEMENT DISCHARGE SUMMARY PATIENT: SEBASTIAN RICHEY UNIT: [id number] ADM DATE: 10/11/19 AGE: 79 : 39 SEX: F ROOM/BED: D.7648 AUTHOR: AMIRAH LAROSE PHYSICIAN: REFERRING PHYSICIAN: CHAD PAUL M.D. DATE OF SERVICE: 10/15/19 Discharge Plan Patient Name: SEBASTIAN RICHEY Facility: [facility]:[place] : 1940 Planned Disposition: Anticipated Discharge Date: Discharge Date: 10/12/2019 Expected LOS: Initial Reviewer: [email or web address] Initial Review Date: 10/12/2019 Generated: 10/15/19 10:28 am Comments DCP- Discharge Planning Updated by [id number]: Pamela Harrell on 10/12/19 3:[address] Patient Name: SEBASTIAN RICHEY Admission Status: ER Accout number: [id number] Admission Date: 10-11-2019 : 1940 Admission Diagnosis: Attending: CHAD PAUL Current LOS: 1 Anticipated DC Date: Planned Disposition: Primary Insurance: MEDICARE A & B Discharge Planning Comments: CM MET WITH PATIENT AFTER OBTAINING VERBAL CONSENT. PATIENT PLANS TO DC TO HOME TODAY. DENIES NEED FOR REHAB, HH OR EQUIPMENT. FAMILY AT BEDSIDE FOR TRANSPORT HOME. Physical Damage Appraiser: Pamela Harrell DCPIA - Discharge Planning Initial Assessment Updated by [id number]: Pamela Harrell on 10/12/19 4:37 pm * Is the patient Alert and Oriented? Yes * PCP KATE * Pharmacy [facility] * Preadmission Environment Home Alone * ADLs Independent * Other Equipment 02, NEBS, OBRIENS * Additional services required to return to the preadmission environment? No * Can the patient safely return to the preadmission environment? Yes * Has this patient been hospitalized within the prior 30 days at any hospital? No Coverage Notice Reviewer: [id number] Avery Umana Notice Issued Date-Time: 10/11/2019 13:00 Notice Type: Medicare Outpatient Observation Notice Notice Delivered To: Patient Relationship to Patient: Columnist Name: Delivery Method: HAND - Hand Delivered Megan Days: Prior Verbal Notification: Recipient Understood Notice: Yes Recipient Signature: Yes Med Rec Note Co-signed by Attending: Coverage Notice Comment: Last DP export: 10/12/19 3:43 p Patient Name: SEBASTIAN RICHEY Page [phone] at 09 All edits/amendments must be made on the electronic document DICTATION DATE: 10/15/19927 FOREST ECOLOGIST: WILLARD 10/15/19927 RPT#: [id number] DC DATE:10/12/19 STATUS: DIS IN [facility] [address] [place] [address] END OF REPORT
== END 2019-10-12 18:42 | disposition home or self-care (01) | DRG 281 ==
LOC: D.ER 15:56 → D.M2 20:46 → OBSVTIME 20:46 → D.M2 10-11 13:23
PROVIDERS: Emergency Medicine; Family Medicine; ADMIT Internal Medicine Cardiovascular Disease; ATTEND Internal Medicine Cardiovascular Disease
DX: I48.20 Chronic atrial fibrillation, unspecified (principal); I21.A1 Myocardial infarction type 2; I50.22 Chronic systolic (congestive) heart failure; I48.91 Unspecified atrial fibrillation; E11.9 Type 2 diabetes mellitus without complications; C50.919 Malignant neoplasm of unspecified site of unspecified female breast; I11.0 Hypertensive heart disease with heart failure

== ENCOUNTER → 2019-12-27 13:07 | Outpatient (CLI) | payer MEDICARE, BC ==
[2019-10-11 18:06] VITALS: BMI 28.9
[~2019-12-27 13:07] MED LIST changes: +KISQALI; +PACERONE200 MG PO; +RIBOCICLIB
== END | disposition home or self-care (01) ==
LOC: D.HCCARDIO 12:30
PROVIDERS: ATTEND Internal Medicine Cardiovascular Disease
DX: R07.9 Chest pain, unspecified (principal)

== ENCOUNTER → 2020-01-09 16:42 | Outpatient (CLI) | payer MEDICARE, BC ==
[2019-10-11 18:06] VITALS: BMI 28.9
[2020-01-09 17:48] LABS: HEMATOCRIT 34.2 % (36.0-48.0); MCH 33.6 pg (26.0-34.0); MCHC 32.2 g/dL (31.0-37.0); MCV 104.6 fL (80.0-100.0); MEAN PLATELET VOLUME 9.9 fL (7.4-10.4); RBC 3.27 10x6/uL (4.00-5.40); RDW 15.4 % (11.5-14.5)
[2020-01-09 17:53] LABS: PLATELET COUNT 373 10x3/uL (130-400)
[2020-01-09 18:30] LABS: PLATELET ESTIMATE NORMAL
[2020-01-09 18:37] LABS: EOSINOPHILS 2 % (0-7); LYMPHOCYTES 21 % (15-50); NEUTROPHILS 77 % (40-80)
== END | disposition home or self-care (01) ==
LOC: D.LABREF 16:42
PROVIDERS: ATTEND Legal Medicine
DX: D64.9 Anemia, unspecified (principal)

== ENCOUNTER 2020-10-21 14:37 | Inpatient (IN) | payer MEDICARE, BC ==
[~2020-10-21] VITALS: Ht 162.6 cm; Wt 74.4 kg
--- NOTE | ~2020-10-21 | EC ---
PATIENT:SEBASTIAN RICHEY DATE OF SERVICE: 10/21/20 SEX: F MEDICAL RECORD: [id number] DATE OF : 38 LOCATION:D.M2 D.213 AGE OF PATIENT: 80 ADMISSION DATE: 10/21/20 REFERRING PHYSICIAN: INTERPRETING PHYSICIAN: LANE KITCHEN MD ECHOCARDIOGRAM REPORT ECHO CHARGES 5 ECHO LIMITED Date: 10/22/20 CLINICAL DIAGNOSIS: SYNCOPE ECHOCARDIOGRAPHIC MEASUREMENTS (adult normal given) AC root (d.<3.7cm) 0 cm LV Septum d (<1.2 cm> 0 cm Valve Excursion cm LV Septum (systole) cm Left Atria (s.<4.0cm> 0 cm LVPW d(<1.2cm) 0 cm RV (d.<2.3cm) 0 cm LVPW (sytole) 0 cm LV diastole(<5.6CM) 0 cm MV E-F(>70mm/sec) 0 cm LV systole 0 cm LVOT Diameter 0 cm MV exc.(>10mm) 0 cm Est.ejection fraction (50-75%) 0 % DOPPLER: LVIT cm/sec A 0 cm/sec E cm/sec LA 0 cm/sec RVSP 19 mmHg LVOT cm/sec AOP1/2T m/s Asc. Ao 0 cm/sec RVOT 0 cm/sec RA 0 cm/sec PA 0 cm/sec AV Gradient Peak 0 mmHg AV Mean 0 mmHg AV Area 0 cm MV Gradient Peak mmHg MV Mean 00 mmHg MV Area cm COMMENTS: Chief Green Officer: Lucho FRAUSTO Quality Control Microbiology Supervisor: 3 Dr. Sarkar TAPE# Pericardial Effusion N DATE OF SERVICE: Limited 2D and color flow Previous full study done last month. Grossly, LVH appears present. LV internal dimensions are normal. Wall motion is normal. EF is equal to 55%. Aortic valve appears sclerotic; however, good valve excursion. Left atrium grossly appears normal. Mitral valve shows mild MR. Right-sided chambers appear grossly normal. Mild TR. ECHOCARDIOGRAM REPORT [id number] SEBASTIAN RICHEY TRANSINT:[id number] Voice Confirmation ID: [id number] DOCUMENT ID: [id number] LANE KITCHEN MD CC: [id number] DICTATION DATE: 10/23/20 08 CONSERVATION SCIENTIST: 10/23/20 0857 DIS IN 10/22/[address] [address]
--- NOTE | 2020-10-21 15:10 | NUR ---
ARRIVED TO ROOM VIA WHEELCHAIR. HIGH FALL RISK STATED BY ACCOMPANIED STAFF. VS 158/61, 63, 18, 98.2, 90% ON ROOM AIR. PATIENT STATES SHE WEARS 2L AT NIGHT AT HOME. PLACED ON 2L. BED ALARM ON. WILL CONTINUE POC AND SAFETY PRECAUTIONS.
[2020-10-21 16:10] LABS: BASOPHILS 2.3 % (0-2); EOSINOPHILS 0.7 % (0-7); HEMATOCRIT 29.5 % (36.0-48.0); HEMOGLOBIN 9.8 g/dL (12-16); IMMATURE GRANULOCYTES 0.3 % (0-5); LYMPHOCYTES 13.2 % (15-50); MCH 35.1 pg (26.0-34.0); MCHC 33.2 g/dL (31.0-37.0); MCV 105.7 fL (80.0-100.0); MEAN PLATELET VOLUME 9.5 fL (7.4-10.4); MONOCYTES 5.3 % (2-11); NEUTROPHIL ABS# 2.36 10x3/uL (1.56-6.13); NEUTROPHILS 78.2 % (40-80); RBC 2.79 10x6/uL (4.00-5.40)
[2020-10-21 16:16] LABS: ANION GAP 9.6 mmol/L (8-16); CARBON DIOXIDE 30.8 mmol/L (21.0-32.0); CREATININE - SERUM 1.2 mg/dL (0.6-1.3); INR 1.15 (0.85-1.17); POTASSIUM - SERUM 4.4 mmol/L (3.5-5.1); PROTIME 13.6 SECONDS (11.6-15.0)
[2020-10-21 16:17] LABS: PLATELET COUNT 228 10x3/uL (130-400)
[2020-10-21 16:22] LABS: ALBUMIN 3.5 g/dL (3.4-5.0); BILIRUBIN - TOTAL 0.45 mg/dL (0.2-1.3); PROTEIN - SERUM 7.2 g/dL (6.4-8.2)
[2020-10-21 16:41] LABS: C-REACTIVE PROTEIN 1.1 mg/dL (0.0-0.9); MAGNESIUM - SERUM 2.4 mg/dL (1.8-2.4); PHOSPHOROUS 3.3 mg/dL (2.5-4.9)
[2020-10-21] MEDS ORDERED: NEXIUM20 MG PO (18:30)
[2020-10-21 18:47] VITALS: BP 158/61; BMI 28.2
--- NOTE | 2020-10-21 19:00 | NUR ---
REPORT RECEIVED, WILL CONT POC. PT A&O, UP IN BED WATCHING TV. NO S/S OF DISTRESS OBSERVED. RR EVEN AND UNLABORED ON 2L. BED LOCKED AND LOWERED, CL IN REACH. ASSESSMENT COMPLETED. WILL CONT TO MONITOR.
[2020-10-21 20:00] VITALS: BP 103/46
[2020-10-21 20:32] VITALS: BP 103/46
[2020-10-21 22:30] LABS: CKMB 0.4 U/L (0.0-3.6); CREATINE KINASE 41 UL (21-215)
[2020-10-21 22:31] LABS: TROPONIN-I < 0.017 ng/mL (0.000-0.060)
[2020-10-22] VITALS: BP 144/45
--- NOTE | 2020-10-22 01:57 | NUR ---
I have reviewed this patient and I concur with the Shift Assessment completed by the Licensed Practical Nurse today this shift.
[2020-10-22 04:00] VITALS: BP 171/50
[2020-10-22 04:53] LABS: BASOPHILS 2.8 % (0-2); EOSINOPHILS 1.7 % (0-7); HEMATOCRIT 27.7 % (36.0-48.0); HEMOGLOBIN 9.3 g/dL (12-16); IMMATURE GRANULOCYTES 0.3 % (0-5); LYMPHOCYTE ABS# 0.62 10x3/uL (1.18-3.74); LYMPHOCYTES 21.4 % (15-50); MCH 35.2 pg (26.0-34.0); MCHC 33.6 g/dL (31.0-37.0); MCV 104.9 fL (80.0-100.0); MEAN PLATELET VOLUME 9.4 fL (7.4-10.4); MONOCYTES 6.2 % (2-11); NEUTROPHIL ABS# 1.96 10x3/uL (1.56-6.13); NEUTROPHILS 67.6 % (40-80); PLATELET COUNT 246 10x3/uL (130-400); RBC 2.64 10x6/uL (4.00-5.40); RDW 15.2 % (11.5-14.5); WBC 2.9 10x3/uL (4.8-10.8)
[2020-10-22 05:11] LABS: ALBUMIN 3.1 g/dL (3.4-5.0); ALKALINE PHOSPHATASE 87 U/L (30-120); ALT (SGPT) 11 U/L (10-68); BILIRUBIN - TOTAL 0.49 mg/dL (0.2-1.3); CALC OSMOLALITY 279 mosm/kg (275-300); CALCIUM 8.8 mg/dL (8.5-10.1); CARBON DIOXIDE 28.8 mmol/L (21.0-32.0); CHLORIDE - SERUM 104 mmol/L (98-107); CKMB 0.1 U/L (0.0-3.6); CREATINE KINASE 37 UL (21-215); CREATININE - SERUM 1.2 mg/dL (0.6-1.3); GLUCOSE 89 mg/dL (74-106); MAGNESIUM - SERUM 2.4 mg/dL (1.8-2.4); POTASSIUM - SERUM 3.8 mmol/L (3.5-5.1); PROTEIN - SERUM 6.5 g/dL (6.4-8.2); SODIUM 139 mmol/L (136-145); TROPONIN-I < 0.017 ng/mL (0.000-0.060); UREA NITROGEN 20 mg/dL (7-18); eGFR NON AFRICAN AMERICAN 46 mL/min (90-120)
[2020-10-22 08:00] VITALS: BP 168/52
[2020-10-22 11:48] LABS: BILIRUBIN NEGATIVE (NEGATIVE); KETONE SMALL mg/dL (NEGATIVE); NITRITE NEGATIVE (NEGATIVE); UROBILINOGEN NORMAL mg/dL (< 2)
[2020-10-22 11:49] LABS: BACTERIA FEW HPF (NONE SEEN); SQUAMOUS EPITHELIAL 0-5 HPF (0-4); WHITE CELLS - URINE 0-5 HPF (0-4)
[2020-10-22 12:20] VITALS: BP 150/51
[2020-10-22 12:24] VITALS: Ht 162.6 cm; Wt 74.4 kg
[2020-10-22] MEDS ORDERED: ASPIRIN EC325 MG PO (13:16)
[2020-10-22] MEDS ORDERED: CELEXA20 MG PO (13:16)
[2020-10-22] MEDS ORDERED: CARDIZEM CD180 MG PO (13:17)
[2020-10-22 15:00] VITALS: BP 120/66
--- NOTE | 2020-10-22 16:00 | NUR ---
PT DISCHARGED HOME WITH FAMILY MEMBER VIA WHEELCHAIR. DC EDUCATION PROVIDED. PT VERBALIZED UNDERSTANDING.
== END 2020-10-22 17:01 | disposition home or self-care (01) | DRG 308 ==
LOC: D.M2 14:37
PROVIDERS: Family Medicine; ADMIT Family Medicine; ATTEND Family Medicine
DX: I48.20 Chronic atrial fibrillation, unspecified (principal); I50.31 Acute diastolic (congestive) heart failure; C79.51 Secondary malignant neoplasm of bone; C50.919 Malignant neoplasm of unspecified site of unspecified female breast; J44.9 Chronic obstructive pulmonary disease, unspecified; R55 Syncope and collapse; I11.0 Hypertensive heart disease with heart failure; I08.3 Combined rheumatic disorders of mitral, aortic and tricuspid valves; J45.909 Unspecified asthma, uncomplicated; K21.9 Gastro-esophageal reflux disease without esophagitis; E03.9 Hypothyroidism, unspecified; D63.0 Anemia in neoplastic disease

== ENCOUNTER 2020-11-13 07:22 | Day surgery (SDC) | payer MEDICARE, BC ==
[~2020-11-13] VITALS: Ht 162.6 cm; Wt 74.7 kg
--- NOTE | ~2020-11-13 | HEMODYNAMI ---
PATIENT:SEBASTIAN RICHEY MEDICAL RECORD: [id number] : 38 LOCATION:D.CAT ADMISSION DATE: 11/13/20 Generatedon:110:23 Patient name: SEBASTIAN RICHEY Patient #: [id number] SSN: [id number] : 1940 Date of study: 11/13/2020 Page: Of Hemodynamic Procedure Report Patient Data Patient Demographics Procedure consent was obtained First Name: SEBASTIAN Gender: Female Last Name: ROSSI : 1940 Middle Initial: JANY Age: 80 year(s) Patient #: [id number] Race: SSN: [id number] Additional ID: [id number] Contact details Address: [address] [place] [address] circle State: [place] City: [place] Zip code: [address] Past Medical History Performed procedures and imaging results Date Procedure Procedure Results Comments 12/27/2019 Stress testing Positive->Intermediate with SPECT MPI risk Allergies Allergen Reaction Date Comments Reported Other allergy 11/13/2020 MEPERDINE Admission Admission Data Admission Date: 11/13/2020 Admission Time: 7:22 Arrival Date: 11/13/2020 Arrival Time: 0:00 Admit Source: Other Insurance Payor: Medicare [facility] #: [id number] Height (in.): 64 BSA: 1.8 (m2) Height (cm.): 162.56 BMI: 28.28 (kg/m2) Weight (lbs.): 164.73 Weight (kg.): 74.72 Lab Results Lab Result Date: 11/13/2020 Lab Result Time: 0:00 CBC Name Units Result Min Max Hematocrit % 29.7 *-(----)-- 42 54 Hemoglobin g/dl 9.8 *-(----)-- 13.5 17.5 Procedure Procedure Types Cath Procedure Diagnostic Procedure LHC LHC w/Coronaries Sedation Charges Moderate Sedation 25-39 minutes Procedure Description Procedure Date Procedure Date: 11/13/2020 Procedure Start Time: 10:00 Procedure End Time: 10:20 Procedure Staff Name Function Jerome Montano MD Performing Physician Carmita Blake RT Monitor Quin Hernandez RT Scrub Nani Soto RN Nurse Scott Joaquin RN Nurse Procedure Data Cath Procedure Fluoroscopy Diagnostic fluoroscopy Total fluoroscopy Time: 1.4 time: 1.4 min min Diagnostic fluoroscopy Total fluoroscopy dose: 373 dose: 373 mGy mGy Contrast Material Contrast Material Type Amount (ml) Isovue 300 59 Entry Location Entry Primary Successful Side Size Upsize Upsize Entry Closure Succes sful Closure Location (Fr) 1 (Fr) 2 (Fr) Remarks Device Remarks Femoral Right 5 Fr Exoseal artery Estimated blood loss: 5 ml Diagnostic catheters Device Type Used For End Catheter Placement MULTIPACK JL 4.0 5Fr Left Coronary catheter Angiography MULTIPACK 3DRC 5Fr Right Coronary catheter Angiography MULTIPACK Pigtail 5 Fr LV Angiography catheter Procedure Complications No complications Procedure Medications Medication Administration Route Dosage 0.9% NaCl I.V. 100 ml/hr Oxygen etCO2 Nasal cannula 2 l/min Heparin Flush Bag added to field 2 bags (1000units/500ml NS) Lidocaine 2% added to field 20 Versed I.V. 1 mg Fentanyl I.V. 50 mcg Hemodynamics Rest BSA: 1.8 (m2) HGB: 9.8 (g/dl) O2 Consumption: Estimated: 153.15 (ml/min) O2 Cons umption indexed: Estimated:85.08 (ml/min/m) Heart Rate: 58 (bpm) Pressure Samples Time Site Value (mmHg) Purpose Heart Use Rate(bpm) 10:16 LV 107/4,-16 Snapshot 45 10:16 AO 138/41(71) Pullback 42 10:16 LV 177/5,27 Pullback 42 Gradients Valve Time Site 1 Site 2 Mean SEP/DFP Peak To Heart Use (mmHg) (sec/min) Peak Rate (mmHg) (bpm) Aortic 10:16 LV AO 10 15 39 42 177/5,27 138/41(71) Calculations Valve P-P Mean Valve Index Valve Source Name Gradient Area Flow (cm2) Aortic 39 10 39 10 Snapshots Pre Cath Intra NCS Post Cath Vital Signs Time Heart Resp SPO2 etCO2 NIBP (mmHg) Rhythm Pain Sedation Rate (ipm) (%) (mmHg) Status Level (bpm) 9:41:38 53 25 100 31.2 153/53(110) SB 0 (11) 10(A) , No pain 9:46:58 52 47 100 14.5 138/51(109) SB 0 (11) 10(A) , No pain 9:52:38 43 26 100 22.8 117/47(98) SB 0 (11) 9(A) , No pain 9:57:00 43 25 100 17.5 115/45(80) SB 0 (11) 9(A) , No pain 10:02:09 39 26 100 13.7 124/45(91) SB 0 (11) 9(A) , No pain 10:06:29 43 18 100 14.5 131/54(98) SB 0 (11) 9(A) , No pain 10:10:53 49 27 100 19.8 122/49(92) SB 0 (11) 9(A) , No pain 10:16:13 44 26 100 25.9 122/48(88) SB 0 (11) 10(A) , No pain 10:21:26 43 17 100 16.7 128/56(101) SB 0 (11) 10(A) , No pain Medications Time Medication Route Dose Verified Delivered Reason Notes Effe ctiveness by by 9:43:43 0.9% NaCl I.V. 100 Buffie Buffie Per ml/hr Brittany Soto RN physician 9:44:26 Oxygen etCO2 2 Buffie Buffie for low 02 Nasal l/min Brittany Soto RN sats cannula 9:44:36 Heparin Flush added 2 Buffie Buffie used for Bag to bags Brittany Soto RN procedure (1000units/500ml field NS) 9:44:46 Lidocaine 2% added 20ml Buffie Buffie for local to vial Brittany Soto RN anesthetic field 9:44:59 Versed I.V. 1 mg Buffie Buffie for Brittany Soto RN sedation 9:45:06 Fentanyl I.V. 50 Buffie Buffie for mcg Brittany Soto RN sedation Procedure Log Time Note 8:56:59 Informed consent obtained and on chart 8:57:33 Diagnostic Cath Status : Elective 8:58:10 Lab Result : Hemoglobin 9.8 g/dl 8:58:10 Lab Result : Hematocrit 29.7 % 8:58:13 Arrival Date: 11/13/2020 12:00:00 AM 8:58:14 Admit Source: Other 8:58:17 Patient Height : 64 inches 8:58:22 Patient Weight : 164.73 lbs 8:58:32 Insurance Payor : Medicare 9:01:09 ACC Patient presents with Stable Angina CCS Anginal Class 2--Slight limitation of ordinary activity. 9:01:13 Procedure Status Elective Heart Cath (OP). 9:01:14 Time tracking: Regular hours (M-F 7:00 - 5:00) 9:01:18 Plan of Care:Hemodynamics will remain stable., Cardiac rhythm will remain stable., Comfort level will be maintained., Respiratory function will remain adequate., Patient/ family verbilizes understanding of procedure., Procedure tolerated without complication., Recovers from procedure without complications.. 9:01:26 H&P Date Dictated: 11/05/2020 Within 30 days and on chart.. 9:01:27 Pre-procedure instructions explained to patient. 9:01:28 Pre-op teaching completed and patient verbalized understanding. 9:01:30 Family in waiting room. 9:01:31 Patient NPO since Midnight. 9:01:51 Patient allergic to Other allergyMEPERDINE 9:01:57 Lab results completed and on chart. 9:02:01 Alarms reviewed by R. N. 9:02:01 Sharps counted by scrub and verified by R.N. 9:25:53 Carmita PALMA(R) sent for patient. Start room use. 9:40:16 Patient received from Pre/Post Procedure Room to CCL 1 Alert and oriented. Tansferred to table in Supine position. 9:40:18 Warm blankets applied, and cristy hugger turned on for patient comfort. 9:40:19 Correct patient and procedure confirmed by team. 9:40:19 ECG and BP/O2 sat monitors applied to patient. 9:40:21 Vital chart was started 9:40:22 Baseline sample Acquired. 9:40:31 Rhythm: sinus rhythm 9:40:33 Full Disclosure recording started 9:40:36 Is the patient allergic to Iodine/contrast media? No. 9:40:37 Was the patient premedicated? Yes 9:40:38 Is patient on blood thinner?Yes 9:43:08 Patient diabetic? No. 9:43:11 Previous problem with sedation/anesthesia? No ? 9:43:14 Snore? No 9:43:16 Sleep apnea? No 9:43:17 Deviated septum? No 9:43:18 Opens mouth fully? Yes 9:43:19 Sticks out tongue? Yes 9:43:26 Airway obstruction? Yes ASTHMA 9:43:28 Dentures? No ? 9:43:33 Pre procedure: right dorsailis pedis pulse 2+ Normal; easily identifiable; not easily obliterated 9:43:35 Pre procedure: left dorsailis pedis pulse 2+ Normal; easily identifiable; not easily obliterated 9:43:37 Patient pain scale 0/10 ?. 9:43:43 0.9% NaCl 100 ml/hr I.V. was administered by Nani Soto RN; Per physician; Verbal order read back and verified. 9:43:47 IV patent on arrival in right forearm with 0.9% NaCl at [facility]. 9:43:51 Stress Test: yes; normal ? 9:43:57 Right groin area was prepped with chlora-prep and draped in sterile fashion 9:43:59 Physician arrived 9:43:59 --------ALL STOP TIME OUT------ 9:44:00 Final Timeout: patient, procedure, and site verified with staff and physician. All members of the team are in agreement. 9:44:02 Right groin site verified by team. 9:44:05 Fire Safety Assessment: A--An alcohol-based skin anteseptic being used preoperatively., C--Open oxygen or nitrous oxide is being used., D--An ESU, laser, or fiber-optic light is being used. 9:44:09 Physical assessment completed. ASA score P 2 - A patient with mild systemic disease as per Jerome Montano MD. 9:44:17 4) 15-29 [place] reduced kidney function. 9:44:26 Oxygen 2 l/min etCO2 Nasal cannula was administered by Nani Soto RN; for low 02 sats; Verbal order read back and verified. 9:44:36 Heparin Flush Bag (1000units/500ml NS) 2 bags added to field was administered by Nani Soto RN; used for procedure; Verbal order read back and verified. 9:44:46 Lidocaine 2% 20ml vial added to field was administered by Nani Soto RN; for local anesthetic; Verbal order read back and verified. 9:44:58 Maximum allowable contrast dose (3.7 X eGFR X 0.75)74 ml. 9:44:59 Versed 1 mg I.V. was administered by Nani Soto RN; for sedation; Verbal order read back and verified. 9:45:02 Sedation plan: IV Moderate Sedation Medication:Versed, Fentanyl 9:45:05 Use device set Femoral Dx 9:45:06 Fentanyl 50 mcg I.V. was administered by Nani Soto RN; for sedation; Verbal order read back and verified. 9:45:06 ACIST Syringe (25499) opened to sterile field. 9:45:07 Bag Decanter (2002S) opened to sterile field. 9:45:07 Medline Cath Pack ([id number]) opened to sterile field. 9:45:09 ACIST Hand Control (68432) opened to sterile field. 9:45:09 ACIST Manifold (73988) opened to sterile field. 9:45:09 DIAGNOSTIC Multipack 5Fr catheter set ([id number]) opened to sterile field. 9:45:10 Tegaderm 4 x 4 (1626W) opened to sterile field. 9:45:11 SHEATH 5FR [place] (HBJ085) opened to sterile field. 9:45:11 EMERALD Guide Wire (677-255) opened to sterile field. 9:54:41 Zero performed for pressure channel P1 10:00:08 Local anesthetic to right femoral artery with Lidocaine 2% by Jerome Montano MD.INITIAL ACCESS ONLY 10:00:54 A 5 Fr sheath was inserted into the Right Femoral artery 10:08:36 A MULTIPACK JL 4.0 5Fr catheter was advanced over the wire and used for Left Coronary Angiography. 10:11:29 LCA angiography performed. 10:11:32 Injector settings: Ml/sec: 3, Volume: 6, 10:12:23 Catheter removed. 10:12:35 A MULTIPACK 3DRC 5Fr catheter was advanced over the wire and used for Right Coronary Angiography. 10:13:23 RCA angiography performed. 10:13:27 Injector settings: Ml/sec: 3, Volume: 6, 10:15:14 Catheter removed. 10:15:29 A MULTIPACK Pigtail 5 Fr catheter was advanced over the wire and used for LV Angiography. 10:16:26 LV hemodynamics recorded. 10:16:27 LV gram done using DALY 10:16:30 Injector settings: Ml/sec: 5, Volume: 15, 10:16:40 EF : 55 % 10:17:08 Catheter removed. 10:17:11 EXOSEAL 5Fr (EX500) opened to sterile field. 10:17:36 Sheath removed intact; hemostasis achieved with Exoseal to the Right Femoral artery. 10:17:52 Procedure ended.(Physican Out) 10:18:15 Fluoroscopy time 01.40 minutes. 10:18:19 Fluoroscopy dose: 373 mGy 10:18:19 Flurop Dose total: 373 10:18:25 Dose Area Product 48572 mGy/cm. 10:18:42 Contrast amount:Isovue 300 59ml. 10:18:47 Maximum allowable dose exceeded? No. 10:18:50 Sharps counted by scrub and verified by R.N. 10:18:51 Insertion/operative site no bleeding no hematoma. 10:18:54 Post-op/insertion site Right Femoral artery dressed using a 4 x 4 and Tegaderm. 10:18:56 Post right femoral artery:stable 10:18:59 Post Procedure Pulses reassessed and unchanged 10:19:02 Post procedure rhythm: unchanged. 10:19:06 Estimated blood loss: 5 ml 10:19:20 Post procedure instruction explained to patient.Patient verbalizes understanding. 10:19:21 Patient needs reinforcement of post procedure teaching. 10:20:00 Procedure type changed to Cath procedure, Diagnostic procedure, LHC, C w/Coronaries, Sedation Charges, Moderate Sedation 25-39 minutes 10:20:02 Procedure and supply charges have been captured, reviewed, submitted and are correct. 10:20:07 Procedure Complication : No complications 10:20:09 Vital chart was stopped 10:20:11 [facility] Findings: mild to moderate CAD (<70%) 10:20:14 Operative report dictated upon procedure completion. 10:20:14 See physician's report for complete and final results. 10:20:21 Report given to Pre/Post Procedure Room. 10:20:23 Patient transfered to Pre/Post Procedure Room with Stretcher. 10:20:25 Procedure ended. 10:20:25 Full Disclosure recording stopped 10:20:29 End room use (Document Last) Device Usage Item Name Manufacture Quantity Catalog Hospital Part Current Minimal L ot# / Number Charge Number Stock Stock Serial# Code ACIST Acist 1 78849 876375 926615 156039 20 Syringe Medical (04725) Systems Inc Bag Microtek 1 736642 97070 989347 5 Decanter Medical Inc. () Medline Medline 1 [id number] 367785 88213 662516 5 Cath Pack ([id number]) ACIST Hand Acist 1 15968 067580 768424 752293 5 Control Medical (40822) Systems Inc ACIST Acist 1 57528 785126 853634 625929 5 Manifold Medical (48147) Systems Inc DIAGNOSTIC Cardinal 1 [id number] 692413 01219 600160 30 MultipFifth Generation Technologies [place] Private 5Fr catheter set ([id number]) Tegaderm 4 3M 1 1626W 052255 721246 825392 5 x 4 (1626W) SHEATH 5FR Terumo 1 [id number] 274209 718209 725374 5 [place] (FUF114) EMERALD Cardinal 1 502-455 638747 098996 867[address] [facility] (502-455) MULTIPACK Cardinal 1 187073 5 JL 4.0 5Fr Health catheter MULTIPACK Cardinal 1 515931 5 3DRC 5Fr Health catheter MULTIPACK Cardinal 1 625926 5 Pigtail 5 Health Fr catheter EXOSEAL 5Fr Cardinal 1 EX500 386963 905345 050350 10 (EX500) Health Signature Audit [place] Stage Time Signature Unsigned Intra-Procedure 11/13/2020 Carmita Blake 10:22:34 AM RT(R) Intra-Procedure 11/13/2020 Scott 10:23:28 AM Emani CARLTON Intra-Procedure 11/13/2020 Jerome Montano MD 10:23:52 AM [facility] [address] [place] [address]
[~2020-11-13 07:22] MED LIST changes: +ASPIRIN EC325 MG PO; +CARDIZEM CD180 MG PO; +CELEXA20 MG PO; -KISQALI; +KISQALI PO; +NEXIUM20 MG PO
[2020-11-13] MEDS ORDERED: CO Q-10100 MG PO (08:07)
[2020-11-13] MEDS ORDERED: OMEPRAZOLE20 M1 PO (08:07)
[2020-11-13] MEDS ORDERED: SINGULAIR10 MG PO (08:09)
[2020-11-13] MEDS ORDERED: MOBIC7.5 MG PO (08:10)
[2020-11-13] MEDS ORDERED: LASIX20 MG PO (08:11)
[2020-11-13] MEDS ORDERED: VITAMIN B-121000 MCG PO (08:11)
[2020-11-13] MEDS ORDERED: FLUTICASONE PRO16 GM NASAL (08:13)
[2020-11-13] MEDS ORDERED: ADVAIR 250-501 EAC1 INH (08:14)
[2020-11-13 08:18] VITALS: BP 179/49; Ht 162.6 cm; Wt 74.7 kg
[2020-11-13 08:39] LABS: BASOPHILS 2.4 % (0-2); EOSINOPHILS 2.4 % (0-7); HEMATOCRIT 29.7 % (36.0-48.0); HEMOGLOBIN 9.8 g/dL (12-16); IMMATURE GRANULOCYTES 0.6 % (0-5); LYMPHOCYTE ABS# 0.67 10x3/uL (1.18-3.74); LYMPHOCYTES 20.1 % (15-50); MCH 35.5 pg (26.0-34.0); MCV 107.6 fL (80.0-100.0); MEAN PLATELET VOLUME 10.5 fL (7.4-10.4); MONOCYTES 14.7 % (2-11); NEUTROPHIL ABS# 1.99 10x3/uL (1.56-6.13); NEUTROPHILS 59.8 % (40-80); RBC 2.76 10x6/uL (4.00-5.40); RDW 16.7 % (11.5-14.5); WBC 3.3 10x3/uL (4.8-10.8)
[2020-11-13 08:40] LABS: PLATELET COUNT 188 10x3/uL (130-400)
[2020-11-13 09:21] LABS: ANION GAP 13.3 mmol/L (8-16); CALCIUM 9.1 mg/dL (8.5-10.1); CARBON DIOXIDE 29.1 mmol/L (21.0-32.0); CHOL - HDL RATIO 1.8 ratio (2.3-4.1); CREATININE - SERUM 1.9 mg/dL (0.6-1.3); LDL-HDL RATIO 0.7 ratio (1.5-3.5); POTASSIUM - SERUM 4.4 mmol/L (3.5-5.1)
--- NOTE | 2020-11-13 10:34 | NUR ---
PT ARRIVED BY STRETCHER. PLACED ON MONITORS. ASSESSMENT COMPLETED. VSS AT THIS TIME. CALL LIGHT WITHIN REACH.
--- NOTE | 2020-11-13 10:50 | NUR ---
EKG COMPLETED PER DR. PAUL ORDERS.
--- NOTE | 2020-11-13 10:55 | NUR ---
RIGHT GROIN DRESSING C/D/I. NO S/S OF HEMATOMA NOTED.
--- NOTE | 2020-11-13 11:00 | NUR ---
DR. PAUL ROUNDED AND REVIEWED EKG. NO ORDERS RECEIVED.
--- NOTE | 2020-11-13 11:30 | NUR ---
RIGHT GROIN DRESSING C/D/I. NO S/S OF HEMATOMA NOTED. RIGHT PEDAL PULSE PALPABLE. VSS. CALL LIGHT WITHIN REACH.
--- NOTE | 2020-11-13 12:00 | NUR ---
RIGHT GROIN DRESSING C/D/I. NO S/S OF HEMATOMA NOTED. CALL LIGHT WITHIN REACH. HEAD OF BED INC TO 30 DEGREES. TOLERATED WELL. SET UP WITH SANDWICH TRAY AND DRINK. DENIES NAUSEA/PAIN.
--- NOTE | 2020-11-13 12:45 | NUR ---
RIGHT GROIN DRESSING C/D/I. NO S/S OF HEMATOMA NOTED. VSS. PIV D/C'D WITH CATH TIP INTACT. TOLERATED WELL. PT INSTRUCTED TO GET UP AND DRESSED AT THIS TIME. CALL LIGHT LEFT WITHIN REACH. SHE STATES SHE DOES NOT NEED ASSISTANCE.
--- NOTE | 2020-11-13 12:55 | NUR ---
DISCUSSED DISCHARGE INSTRUCTIONS WITH PT. SHE VOICED UNDERSTANDING.
--- NOTE | 2020-11-13 13:10 | NUR ---
PT TAKEN TO RESTROOM BY WHEELCHAIR. VOIDED WITHOUT DIFFICULTY. PT TAKEN OUT TO VEHICLE BY WHEELCHAIR. NO S/S OF DISTRESS NOTED. ALL BELONGINGS AND PAPERWORK IN HAND.
== END 2020-11-13 13:10 | disposition home or self-care (01) ==
LOC: D.CATH 07:22
PROVIDERS: ATTEND Internal Medicine Cardiovascular Disease
DX: R55 Syncope and collapse (principal); R06.00 Dyspnea, unspecified; I25.10 Atherosclerotic heart disease of native coronary artery without angina pectoris; I48.0 Paroxysmal atrial fibrillation

== ENCOUNTER 2021-01-15 07:21 | Day surgery (SDC) | payer MEDICARE, BC ==
[~2021-01-15] VITALS: Ht 162.6 cm; Wt 72.9 kg
--- NOTE | ~2021-01-15 | HP ---
PATIENT: SEBASTIAN RICHEY MEDICAL RECORD: [id number] ACCOUNT: [id number] LOCATION:[facility] : 39 ADMISSION DATE: 01/15/21 PCP: LIANET LOVE MD HISTORY AND PHYSICAL EXAMINATION HISTORY OF PRESENT ILLNESS: This is an 80-year-old female seen by Dr. Montano and has a history of paroxysmal atrial fibrillation. We were able to establish a normal sinus rhythm; however, after establishing normal sinus rhythm, had problems with marked bradyarrhythmias. At this point, consistent with tachybrady syndrome. She has been admitted for permanent pacemaker placement. PAST MEDICAL HISTORY: 1. History of atrial fibrillation described above. 2. Hypertension. 3. Hyperlipidemia. PHYSICAL EXAMINATION: GENERAL: Pleasant female in no acute distress, appears stated age. HEENT: Normocephalic, atraumatic. NECK: No JVD or bruit. HEART: Regular. LUNGS: Corea clear. Pulses 2+. No edema. IMPRESSION: Tachybrady syndrome. PLAN: For permanent pacemaker placement. TRANSINT:[id number] Voice Confirmation ID: [id number] DOCUMENT ID: [id number] LANE KITCHEN MD CC: [id number] DICTATION DATE: 01/15/21803 MOUNTER FLUTES AND PICCOLOS: 01/15/21 0823 REG [facility] [address] [place] [address]
--- NOTE | ~2021-01-15 | HEMODYNAMI ---
PATIENT:SEBASTIAN RICHEY MEDICAL RECORD: [id number] : 38 LOCATION:[facility] ADMISSION DATE: 01/15/21 Generatedon:19:15 Patient name: SEBASTIAN RICHEY Patient #: [id number] SSN: [id number] : 1940 Date of study: 01/15/2021 Page: Of Hemodynamic Procedure Report Patient Data Patient Demographics Procedure consent was obtained First Name: SEBASTIAN Gender: Female Last Name: ORSSI : 1940 [facility] Initial: JANY Age: 80 year(s) Patient #: [id number] Race: SSN: [id number] Additional ID: [id number] Contact details Address: [address] [place] [address] circle State: [place] City: [place] Zip code: [address] Past Medical History Allergies Allergen Reaction Date Comments Reported Other allergy 11/13/2020 MEPERDINE Admission Admission Data Admission Date: 01/15/2021 Admission Time: 7:21 Arrival Date: 01/15/2021 Arrival Time: 0:00 Admit Source: Other Insurance Payor: Medicare [facility] #: [id number] Lab Results Lab Result Date: 01/15/2021 Lab Result Time: 0:00 Biochemistry Name Units Result Min Max BUN mg/dl 43 --(----)-* 7 18 Creatinine mg/dl 2.3 --(----)-* 0.6 1.3 eGFR ml/min 22 *-(----)-- 90 120 NONAFRICAN CBC Name Units Result Min Max Hematocrit % 32.2 *-(----)-- 42 54 Hemoglobin g/dl 10.8 *-(----)-- 13.5 17.5 Procedure Procedure Types Cath Procedure Diagnostic Procedure PPM/ICD PPM Dual Implant Sedation Charges Moderate Sedation 40-54 minutes Procedure Description Procedure Date Procedure Date: 01/15/2021 Procedure Start Time: 8:28 Procedure End Time: 9:13 Procedure Staff Name Function Hemal Calderon MD Performing Physician Scott Joaquin RN Nurse Quin Hernandez RT Monitor Ashwini Corea RT Scrub Procedure Data Cath Procedure Fluoroscopy Diagnostic fluoroscopy Total fluoroscopy Time: 3.7 time: 3.7 min min Diagnostic fluoroscopy Total fluoroscopy dose: 61 dose: 61 mGy mGy Contrast Material Contrast Material Type Amount (ml) Isovue 370 0 Estimated blood loss: 10 ml Procedure Complications No complications Procedure Medications Medication Administration Route Dosage 0.9% NaCl I.V. 100 ml/hr Oxygen etCO2 Nasal cannula 3 l/min Ancef (1Gm/50ml NS) I.V.P.B 1 g Ancef Irrigation 1 g (1gm/500ml NS) Lidocaine 1% with added to field 20 ml Epi Fentanyl I.V. 50 mcg Versed I.V. 1 mg Fentanyl I.V. 50 mcg Versed I.V. 1 mg Hemodynamics Rest HGB: 10.8 (g/dl) Heart Rate: 62 (bpm) Snapshots Pre Cath Intra NCS Post Cath Vital Signs Time Heart Resp SPO2 NIBP (mmHg) Rhythm Pain Sedation Rate (ipm) (%) Status Level (bpm) 8:22:05 46 13 100 130/51(98) NSR 0 (11) 10(A) , No pain 8:26:23 44 13 100 122/48(91) NSR 0 (11) 10(A) , No pain 8:31:45 44 15 100 132/49(96) NSR 0 (11) 10(A) , No pain 8:36:05 93 12 100 125/45(100) NSR 0 (11) 9(A) , No pain 8:40:23 43 20 98 96/43(81) NSR 0 (11) 9(A) , No pain 8:45:30 42 20 99 102/43(72) NSR 0 (11) 9(A) , No pain 8:49:36 64 18 98 92/50(89) NSR 0 (11) 9(A) , No pain 8:53:40 40 19 98 107/50(74) NSR 0 (11) 9(A) , No pain 8:57:52 42 10 98 94/41(74) NSR 0 (11) 9(A) , No pain 9:01:53 80 10 99 101/57(78) NSR 0 (11) 9(A) , No pain 9:05:59 78 10 100 105/50(82) NSR 0 (11) 9(A) , No pain 9:10:05 93 8 100 105/58(75) NSR 0 (11) 9(A) , No pain 9:14:11 74 9 100 101/55(78) NSR 0 (11) 9(A) , No pain Medications Time Medication Route Dose Verified Delivered Reason Notes Effective ness by by 8:18:39 0.9% NaCl I.V. 100 Scott Scott Per ml/hr Emani Joaquin physician RN RN 8:19:17 Oxygen etCO2 3 Scott Scott for low 02 Nasal l/min Lorigan Estelaigan sats cannula RN RN 8:19:52 Ancef I.V.P.B 1 g Scott Scott Per (1Gm/50ml Emani Joaquin physician NS) RN RN 8:20:23 Ancef Topical 1 g Scott Scott used for Irrigation ( added Lorigan Lorigan procedure (1gm/500ml to the RN RN NS) field ) 8:20:41 Lidocaine added 20 ml Scott Scott for local 1% with Epi to Lorigan Lorigan anesthetic field RN RN 8:25:16 Versed I.V. 1 mg Scott Scott for Lorigan Lorigan sedation RN RN 8:25:37 Fentanyl I.V. 50 Scott Scott for mcg Lorigan Lorigan sedation RN RN 8:27:51 Versed I.V. 1 mg Scott Scott for Lorigan Lorigan sedation RN RN 8:34:14 Fentanyl I.V. 50 Scott Scott for mcg Lorigan Lorigan sedation RN info analyst Log Time Note 7:48:22 Informed consent obtained and on chart 7:48:36 Diagnostic Cath Status : Elective 7:53:15 Arrival Date: 01/15/2021 12:00:00 AM 7:53:16 Admit Source: Other 7:53:21 Insurance Payor : Medicare 7:54:07 ACC Patient presents with Stable Angina CCS Anginal Class 2--Slight limitation of ordinary activity. 7:54:10 Procedure Status PPM/ Gen Change/ Lead Revision/ Temp. 7:54:12 Time tracking: Regular hours (M-F 7:00 - 5:00) 7:54:16 Plan of Care:Hemodynamics will remain stable., Cardiac rhythm will remain stable., Comfort level will be maintained., Respiratory function will remain adequate., Patient/ family verbilizes understanding of procedure., Procedure tolerated without complication., Recovers from procedure without complications.. 7:54:26 Alarms reviewed by R. N. 7:54:27 Sharps counted by scrub and verified by R.N. 8:03:00 Scott Joaquin RN sent for patient. Start room use. 8:09:03 Patient received from Pre/Post Procedure Room to CCL 1 Alert and oriented. Tansferred to table in Supine position. 8:09:04 Warm blankets applied, and cristy hugger turned on for patient comfort. 8:09:05 Correct patient and procedure confirmed by team. 8:09:05 ECG and BP/O2 sat monitors applied to patient. 8:09:16 H&P Date Dictated: 01/15/2021 New H&P dictated by physician.. 8:09:17 Pre-procedure instructions explained to patient. 8:09:17 Pre-op teaching completed and patient verbalized understanding. 8:09:19 Family in waiting room. 8:09:20 Patient NPO since Midnight. 8:09:22 Is the patient allergic to Iodine/contrast media? No. 8:09:23 Was the patient premedicated? Yes 8:09:25 Is patient on blood thinner?No 8:18:39 0.9% NaCl 100 ml/hr I.V. was administered by Scott Joaquin RN; Per physician; Verbal order read back and verified. 8:19:17 Oxygen 3 l/min etCO2 Nasal cannula was administered by Scott Joaquin RN; for low 02 sats; Verbal order read back and verified. 8:19:52 Ancef (1Gm/50ml NS) 1 g I.V.P.B was administered by Scott Joaquin RN; Per physician; Verbal order read back and verified. 8:20:23 Ancef Irrigation (1gm/500ml NS) 1 g Topical ( added to the field ) was administered by Scott Joaquin RN; used for procedure; Verbal order read back and verified. 8:20:41 Lidocaine 1% with Epi 20 ml added to field was administered by Scott Joaquin RN; for local anesthetic; Verbal order read back and verified. 8:20:45 Vital chart was started 8:21:03 Patient diabetic? No. 8:21:10 Full Disclosure recording started 8:21:11 Baseline sample Acquired. 8:21:12 Rhythm: sinus bradycardia 8:21:18 If diabetic: On Metformin? N/A 8:21:20 Patient not . Patient is over age 55. 8:21:21 ----Pre-sedation anethsthesia assessment.---- 8:21:34 Previous problem with sedation/anesthesia? No ? 8:21:36 Snore? Unknown 8:21:37 Sleep apnea? No 8:21:38 Deviated septum? No 8:21:39 Opens mouth fully? Yes 8:21:40 Sticks out tongue? Yes 8:21:51 Airway obstruction? Yes LUNG CANCER 8:21:54 Dentures? No ? 8:22:07 Patient pain scale 0/10 ?. 8:22:17 IV patent on arrival in right antecubital with 0.9% NaCl at O. 8:22:22 Lab results pending. 8:22:27 Stress Test: no; N/A ? 8:22:35 Left chest area was prepped with dura-prep and draped in sterile fashion 8:22:45 Use device set ANSHUL PPM 8:22:58 Medtronic corporate representative TIFF POWERS present for procedure. 8:23:04 3-0 Vicryl Single Pack [id number] opened to sterile field. 8:23:05 Cautery Tip Grey Percher opened to sterile field. 8:23:06 Cautery Pushbutton Pencil opened to sterile field. 8:23:17 5-0 Monocryl PS2 [id number] opened to sterile field. 8:23:33 Tegaderm 4 x 4 (1626W) opened to sterile field. 8:23:37 Medtronic 4074-52 PPM Lead opened to sterile field. 8:23:37 Medtronic 4574-45 PPM Lead opened to sterile field. 8:23:47 Pre sharps counted by scrub and verified by RN: Sutures: 5; Sponges: 5; Stick needles: 2; Skin needles: 2; Blade: 1; Cautery: 1 8:23:57 Grounding pad site Left thigh. 8:24:01 --------ALL STOP TIME OUT------ 8:24:02 Final Timeout: patient, procedure, and site verified with staff and physician. All members of the team are in agreement. 8:24:04 Left chest site verified by team. 8:24:06 Fire Safety Assessment: A--An alcohol-based skin anteseptic being used preoperatively., C--Open oxygen or nitrous oxide is being used., D--An ESU, laser, or fiber-optic light is being used. 8:24:12 Sedation plan: IV Moderate Sedation Medication:Versed, Fentanyl 8:25:12 Physical assessment completed. ASA score P 2 - A patient with mild systemic disease as per Hemal Calderon MD. 8:25:16 Versed 1 mg I.V. was administered by Scott Joaquin RN; for sedation; Verbal order read back and verified. 8:25:37 Fentanyl 50 mcg I.V. was administered by Scott Joaquin RN; for sedation; Verbal order read back and verified. 8:26:16 Lab Result : eGFR NONAFRICAN 22 ml/min 8:26:16 Lab Result : Hemoglobin 10.8 g/dl 8:26:16 Lab Result : BUN 43 mg/dl 8::16 Lab Result : Creatinine 2.3 mg/dl 8::16 Lab Result : Hematocrit 32.2 % 8:26:22 Procedure started. 8:27:34 Grounding pad site free from injury. 8:27:51 Versed 1 mg I.V. was administered by Scott Joaquin RN; for sedation; Verbal order read back and verified. 8:28:54 LIDOCAINE 1% BY LT UPPER CHEST AREA BY DR HINSON. 8:29:50 Incision made to left subclavicular area. 8:30:01 Left subclavian vein accessed with 9Fr Peel Away Sheath. 8:31:[address] Generator [id number] opened to sterile field. 8:33:51 LIDIOCAINE 1% ADMINISTERED IN LT UPPER CHEST AREA. 8:34:14 Fentanyl 50 mcg I.V. was administered by Scott Joaquin RN; for sedation; Verbal order read back and verified. 8:37:44 WIRE INSERTED INTO 9FR SHEATH. 8:37:50 Generator pocket made/opened. 8:39:17 Left subclavian vein accessed with 7Fr Peel Away Sheath. 8:44:29 Ventricular lead inserted and advanced. 8:49:04 Ventricular lead positioned. 8:49:07 Ventricular lead tested. 8:50:35 Peel-a-way sheath was split and removed. 8:50:37 Left subclavian vein accessed with 7Fr Peel Away Sheath. 8:50:47 Atrial lead inserted and advanced. 8:52:30 Atrial lead positioned. 8:53:08 Atrial lead tested. 8:53:58 Atrial lead repositioned. 8:54:03 Atrial lead tested. 8:54:46 Peel-a-way sheath was split and removed. 8:54:53 Ventricular lead attachment was completed with 3-0 vicryl. 8:54:58 Atrial lead attachment was completed with 3-0 vicryl. 8:58:27 PPM Dual was attached to lead(s) and inserted into pocket. 8:59:17 PPM Dual was inserted subcutaneously to left chest. 8:59:56 Generator was sutured in place with 3-0 vicryl. 9:01:25 Device pocket was irrigated with Ancef. 9:03:13 Subcutaneous closure was completed with 3-0 vicryl. 9:04:52 Skin closure was completed with 5-0 monocryl. 9:10:11 Lt Chest incision was dressed with Dermabond. 9:10:14 Lt Chest incision was dressed with 4 x 4 and Tegaderm. 9:10:24 Fluoroscopy time 03.70 minutes. 9:10:29 Fluoroscopy dose: 61 mGy 9:10:29 Flurop Dose total: 61 9:10:37 Dose Area Product 7363 mGy/cm. 9:10:40 Contrast amount:Isovue 370 0ml. 9:10:43 Procedure ended.(Physican Out) 9:11:37 Maximum allowable dose exceeded? No. 9:11:39 Sharps counted by scrub and verified by R.N. 9:11:43 Post Procedure Pulses reassessed and unchanged 9:11:49 Post procedure rhythm: sinus rhythm , paced 9:11:52 Estimated blood loss: 10 ml 9:11:53 Post procedure instruction explained to patient.Patient verbalizes understanding. 9:11:54 Patient needs reinforcement of post procedure teaching. 9:12:10 Procedure type changed to Cath procedure, Diagnostic procedure, PPM/ICD, PPM Dual Implant, Sedation Charges, Moderate Sedation 40-54 minutes 9:12:47 Immobilizer Large opened to sterile field. 9:13:05 Procedure and supply charges have been captured, reviewed, submitted and are correct. 9:13:09 Procedure Complication : No complications 9:13:14 Operative report dictated upon procedure completion. 9:13:14 See physician's report for complete and final results. 9:13:16 Report given to Pre/Post Procedure Room. 9:13:18 Patient transfered to Pre/Post Procedure Room with Stretcher. 9:13:21 Procedure ended. 9:13:21 Full Disclosure recording stopped 9:13:26 End room use (Document Last) 9:13:40 End room use (Document Last) 9:14:08 End room use (Document Last) 9:15:08 Vital chart was stopped Device Usage Item Name Manufacture Quantity Catalog Hospital Part Current Minimal L ot# / Number Charge Number Stock Stock Serial# Code 3-0 Vicryl Ethicon 1 [id number] [id number] 5 Single Pack [id number] Cautery Tip Microtek 1 [id number] 211532 282307 080820 5 Grey [employer] Cautery Microtek 1 [id number] 523340 08471 [id number] 5 Pushbutton [employer] Inc[employer] Pencil 5-0 Ethicon 1 [id number] 726558 870660 703721 5 Monocryl PS2 Y495G Tegaderm 4 3M 1 1626W 808615 152958 [id number] 5 x 4 (1626W) Medtronic Medtronic 1 4074-52 465805 566491 601337 5 4074-52 PPM B [id number] Lead E XP: 09/22/2022 Medtronic Medtronic 1 4574-45 670426 602142 630462 5 4574-45 PPM B [id number] Lead E XP: 07/30/2022 Medtronic Medtronic 1 [id number] [id number] [id number] [id number] [address] Granados [id number] Generator E XP [id number] : 06/11/2022 Immobilizer Cardinal 1 [id number] 281257 855522 [id number] 5 [facility] Signature Audit [place] Stage Time Signature Unsigned Intra-Procedure 01/15/2021 Quni Hernandez 9:13:40 AM RT(R) Intra-Procedure 01/15/2021 Scott 9:14:08 AM Emani CARLTON Intra-Procedure 01/15/2021 Hemal Farrar 9:15:06 AM Dakota MA [facility] [address] [place] [address]
--- NOTE | ~2021-01-15 | OP ---
PATIENT NAME: CESAR RICHEY MEDICAL RECORD: [id number] :38 LOCATION:D.CAT ADMISSION DATE: SURGEON: LANE KITCHEN MD DATE OF OPERATION: 01/15/2021 PROCEDURE: Lead portion of permanent pacemaker placement. SURGEON: Dr. Morales. INDICATION: Sick sinus syndrome with pauses. DESCRIPTION OF PROCEDURE: After the left subclavian was cannulated via modified Seldinger via Dr. Morales first under fluoroscopic guidance, I placed the RV lead in the RV apex without difficulty. After adequate R-wave threshold was obtained, we then again under fluoroscopic guidance, placed right atrial lead in right atrial appendage without difficulty. After adequate P waves and thresholds were obtained, the leads were attached to the appropriate poles of the generator and the pocket was closed by Dr. Morales. IMPRESSION: Successful lead portion of permanent pacemaker placement for Cesar Richey. ESTIMATED BLOOD LOSS: Minimal. COMPLICATIONS: None. DISPOSITION: To the floor, stable. TRANSINT:[id number] Voice Confirmation ID: [id number] DOCUMENT ID: [id number] LANE KITCHEN MD CC: [id number] DICTATION DATE: 01/15/21 09 ANIMATION ARTIST: 01/15/21 1020 [facility] [address] [place] [address]
[~2021-01-15 07:21] MED LIST changes: +ADVAIR 250-501 EAC1 INH; +CO Q-10100 MG PO; +MOBIC7.5 MG PO; +OMEPRAZOLE20 M1 PO; +VITAMIN B-121000 MCG PO
[2021-01-15] MEDS ORDERED: BUMETANIDE1 MG PO (07:36)
[2021-01-15] MEDS ORDERED: METOPROLOL TART50 MG PO (07:36)
[2021-01-15 07:46] VITALS: BP 148/49; Ht 162.6 cm; Wt 72.9 kg
[2021-01-15 08:02] LABS: HEMATOCRIT 32.2 % (36.0-48.0); HEMOGLOBIN 10.8 g/dL (12-16); MCH 35.9 pg (26.0-34.0); MCHC 33.4 g/dL (31.0-37.0); MCV 107.5 fL (80.0-100.0); MEAN PLATELET VOLUME 8.2 fL (7.4-10.4); RBC 2.99 10x6/uL (4.00-5.40); RDW 16.7 % (11.5-14.5); WBC 3.3 10x3/uL (4.8-10.8)
[2021-01-15 08:12] LABS: ANION GAP 10.4 mmol/L (8-16); CALCIUM 8.9 mg/dL (8.5-10.1); CARBON DIOXIDE 30.3 mmol/L (21.0-32.0); CREATININE - SERUM 2.3 mg/dL (0.6-1.3); POTASSIUM - SERUM 3.7 mmol/L (3.5-5.1)
[2021-01-15 08:19] LABS: INR 0.97 (0.85-1.17); PROTIME 11.9 SECONDS (11.6-15.0)
--- NOTE | 2021-01-15 09:28 | NUR ---
PT REC'D TO CATH RECOVERY ROOM 6 VIA STRETCHER. MONITORS ESTAB. NO FAMILY AT BS. L ARM IN SLING. SEE MAGNETIC PROSPECTING OPERATOR FLOWSHEETS. ALARMS ON AND C/L IN REACH.
--- NOTE | 2021-01-15 09:45 | NUR ---
PCXR DONE. VSS. CM - A PACED AT 70, NO ECTOPY NOTED. L CHEST PPM SITE DSG C/D/I, NO REDNESS OR DRAINAGE NOTED. PT COOPERATIVE, DENIES PAIN OR NEEDS. ALARMS ON AND C/L IN REACH.
--- NOTE | 2021-01-15 10:10 | NUR ---
PCXR RESULTED, WNL. VSS. PT GIVEN COFFEE PER REQUEST. ALARMS ON AND C/L IN REACH.
--- NOTE | 2021-01-15 10:30 | NUR ---
L CHEST PPM SITE C/D/I, NO REDNESS OR SWELLING NOTED, CM - A-PACED AT 70. VSS. PT DENIES PAIN OR NEEDS.
--- NOTE | 2021-01-15 10:49 | NUR ---
SPOKE WITH PTS GRANDSON RE: D/C INSTRUCTIONS AND PLAN FOR D/C AT 1115.
--- NOTE | 2021-01-15 11:07 | NUR ---
ALL DISCHARGE INSTRUCTIONS REVIEWED WITH PT, INCLUDING RESTRICTIONS, MEDS AND F/U APPT. PT VERBALIZES UNDERSTANDING.
--- NOTE | 2021-01-15 11:10 | NUR ---
PIV D/C'D INTACT, DSG APPLIED. PT ASSISTED UP AND WITH GETTING DRESSED, SHOWED HOW TO TO USE SLING AND INSTRUCTED ON IMPORTANCE OF KEEPING SLING ON FOR 2 WEEKS. PT TO BR, ASSISTED PER REQUEST, VOIDED APPROX 400CC CLEAR YELLOW URINE.
--- NOTE | 2021-01-15 11:25 | NUR ---
PT D/C'D VIA WC TO PRIVATE VEHICLE WITH ALL BELONGINGS AND PAPERWORK, NO QUESTIONS AT THIS TIME.
== END 2021-01-15 11:25 | disposition home or self-care (01) ==
LOC: D.CATH 07:21
PROVIDERS: ATTEND Internal Medicine Interventional Cardiology
DX: I49.5 Sick sinus syndrome (principal); Z86.79 Personal history of other diseases of the circulatory system; I10 Essential (primary) hypertension; E78.5 Hyperlipidemia, unspecified

== ENCOUNTER 2021-02-06 09:29 | Inpatient (IN) | payer MEDICARE, BC ==
[~2021-02-06] VITALS: Ht 162.6 cm; Wt 68.2 kg
[~2021-02-06 09:29] MED LIST changes: +BUMETANIDE1 MG PO; +METOPROLOL TART50 MG PO
[2021-02-06 09:59] LABS: HEMATOCRIT 30.2 % (36.0-48.0); MCH 36.7 pg (26.0-34.0); MCHC 33.2 g/dL (31.0-37.0); MCV 110.6 fL (80.0-100.0); PLATELET COUNT 113 10x3/uL (130-400); RBC 2.73 10x6/uL (4.00-5.40); RDW 17.6 % (11.5-14.5)
[2021-02-06 10:06] LABS: WBC 1.8 10x3/uL (4.8-10.8)
[2021-02-06 10:08] LABS: CALCIUM 9.3 mg/dL (8.5-10.1); CARBON DIOXIDE 28.1 mmol/L (21.0-32.0); CREATININE - SERUM 1.6 mg/dL (0.6-1.3); POTASSIUM - SERUM 4.1 mmol/L (3.5-5.1)
[2021-02-06 10:13] LABS: ALBUMIN 3.6 g/dL (3.4-5.0); BILIRUBIN - TOTAL 0.39 mg/dL (0.2-1.3); PROTEIN - SERUM 7.2 g/dL (6.4-8.2)
[2021-02-06 10:49] LABS: INR 1.09 (0.85-1.17); PROTIME 13.1 SECONDS (11.6-15.0)
[2021-02-06 13:10] LABS: ANISOCYTOSIS OCC; EOSINOPHILS 5 % (0-7); LYMPHOCYTES 32 % (15-50); MONOCYTES 11 % (2-11); NEUTROPHILS 52 % (40-80); PLATELET ESTIMATE NORMAL
[2021-02-06 17:29] VITALS: BP 116/69
[2021-02-06 18:49] VITALS: BP 116/69; Ht 162.6 cm; Wt 68.2 kg
[2021-02-06 20:00] VITALS: BP 99/47
[2021-02-07] VITALS (10 sets, daily range): BP systolic 100–128; BP diastolic 42–57
[2021-02-07 06:23] LABS: EOSINOPHILS 0.1 % (0-7); LYMPHOCYTES 4.9 % (15-50); MCV 110.6 fL (80.0-100.0)
[2021-02-07 06:27] LABS: BASOPHILS 0.6 % (0-2); HEMATOCRIT 20.8 % (36.0-48.0); MCH 36.8 pg (26.0-34.0); MCHC 33.3 g/dL (31.0-37.0); MEAN PLATELET VOLUME 8.5 fL (7.4-10.4); MONOCYTES 3.8 % (2-11); NEUTROPHILS 90.6 % (40-80); PLATELET COUNT 96 10x3/uL (130-400); RDW 17.5 % (11.5-14.5)
[2021-02-07 07:04] LABS: WBC 3.4 10x3/uL (4.8-10.8)
[2021-02-07 07:05] LABS: RBC 1.88 10x6/uL (4.00-5.40)
[2021-02-07 07:06] LABS: HEMOGLOBIN 6.9 g/dL (12-16)
[2021-02-07 07:12] LABS: ALBUMIN 2.9 g/dL (3.4-5.0); ANION GAP 16.4 mmol/L (8-16); BILIRUBIN - TOTAL 0.21 mg/dL (0.2-1.3); CARBON DIOXIDE 21.2 mmol/L (21.0-32.0); CREATININE - SERUM 1.4 mg/dL (0.6-1.3); MAGNESIUM - SERUM 2.2 mg/dL (1.8-2.4); PHOSPHOROUS 4.1 mg/dL (2.5-4.9); POTASSIUM - SERUM 4.6 mmol/L (3.5-5.1); PROTEIN - SERUM 5.7 g/dL (6.4-8.2)
[2021-02-07 09:24] LABS: PLATELET ESTIMATE DECREASED
--- NOTE | 2021-02-07 15:53 | NUR ---
BLOOD STARTED. GONSALEZ PLACED WITH STERILE TECHNIQUE MAINTAINED THROUGHOUT WITH ONE ATTEMPT. CL IN REACH. WCTM
[2021-02-07] MEDS ORDERED: ARMOUR THYROID120 MG PO (16:06)
[2021-02-07] MEDS ORDERED: DILTIAZEM 24HR180 M4 PO (16:07)
[2021-02-07] MEDS ORDERED: VISTARIL25 MG (16:08)
[2021-02-07] MEDS ORDERED: FUROSEMIDE20 MG PO (16:08)
[2021-02-07] MEDS ORDERED: VISTARIL50 MG PO (16:09)
[2021-02-07] MEDS ORDERED: SINGULAIR10 MG PO (16:10)
[2021-02-07] MEDS ORDERED: METOPROLOL TART50 MG PO (16:10)
[2021-02-07] MEDS ORDERED: K-DUR20 MEQ PO (16:10)
[2021-02-07] MEDS ORDERED: CARAFATE1 G PO (16:11)
[2021-02-07] MEDS ORDERED: BUMETANIDE1 MG PO (16:11)
[2021-02-07] MEDS ORDERED: MOBIC7.5 MG PO (16:12)
--- NOTE | 2021-02-07 19:31 | NUR ---
PATIENT RESTING IN BED WITH NO S/S OF DISTRESS AND DENIES NEEDS AT THIS TIME. BED IN LOWEST POSITION AND CALL LIGHT IN REACH. ENCOURAGED PATIENT TO CALL WITH NEEDS.
--- NOTE | 2021-02-07 21:40 | NUR ---
TIFFANY LÓPEZ APRN IN REGARDS TO PATIENT'S HOME MEDS BEING RESTARTED PER PATIENT REQUEST.
--- NOTE | 2021-02-07 22:23 | NUR ---
ADMINISTERED MEDS PER ORDERS. PATIENT THUY WELL. ENCOURAGED TO CALL WITH NEEDS.
[2021-02-08] VITALS (7 sets, daily range): BP systolic 134–149; BP diastolic 43–61
[2021-02-08 07:23] LABS: ALBUMIN 2.8 g/dL (3.4-5.0); ANION GAP 11.6 mmol/L (8-16); BILIRUBIN - TOTAL 0.31 mg/dL (0.2-1.3); CARBON DIOXIDE 25.7 mmol/L (21.0-32.0); CREATININE - SERUM 1.4 mg/dL (0.6-1.3); MAGNESIUM - SERUM 2.5 mg/dL (1.8-2.4); POTASSIUM - SERUM 4.3 mmol/L (3.5-5.1); PROTEIN - SERUM 5.8 g/dL (6.4-8.2)
--- NOTE | 2021-02-08 07:27 | OP ---
PATIENT NAME: SEBASTIAN IRELAND MEDICAL RECORD: [id number] :38 LOCATION:D.MS Pe[facility].2235 ADMISSION DATE:02/06/21 SURGEON: DALE FERRARA DO DATE OF OPERATION: 02/06/2021 PROCEDURE PERFORMED: Right hip intramedullary nailing. PREOPERATIVE DIAGNOSIS: Right intertrochanteric hip fracture. POSTOPERATIVE DIAGNOSIS: Right intertrochanteric hip fracture. INDICATIONS: Ms. Ireland is an 80-year-old female who fell today getting off the commode she said and fractured her right hip. She was brought to the ER and x-rayed and seen to have the hip fracture. She has informed me she does have stage IV breast cancer and does take care of her at home with dementia as well as her son. She is planning on moving to [place] soon. She could not ambulate and she normally ambulates without a walker. I informed her that the risks of the surgery including infection, bleeding, damage to nerves or vessels, need for further surgery, cut out, malunion, nonunion, blood clots and even and she signed the consent. SURGEON: Dale Ferrara DO. DESCRIPTION OF PROCEDURE: The patient was taken to the operative suite, laid in the supine position, given general anesthetic and intubated. She was then moved over to the Freedom table, given 2 grams of Ancef preoperatively. The right hip was then prepped and draped in sterile fashion. Timeout was performed. Everyone was in agreement with correct side, site, patient and procedure. I then made an incision over the lateral hip just proximal to the greater trochanter and got a good starting point, after reducing the hip under x-ray prior to starting. I then used a starting reamer and entered into the femoral canal. After getting a good starting point on AP and lateral, I then put in the bead tip guidewire and used a fresh one as one had poked me in the thumb. We exchanged my gloves and remove that guidewire also and then put in a new one. I then measured it to be 340 mm nail. I then reamed up to a 15 and put a 13 x 340 nail down and once in proper position, I made an incision over the lateral hip through the guide for the lag screw and then used the pin. Once the lag screw was in good position on AP and lateral, I reamed and measured to use a 105 mm lag screw. I then reamed that over the pin and then put in 10.5 x 105 mm lag screw by hand. I then compressed the screw after traction was released and locked it proximally and then put in a 90 mm antirotational screw through the guide. I then got AP and lateral to ensure they appear both in good position and they were. I then went distally and got a perfect levelock on the distal dynamic hole, put a drill through it and used a 5 x 40 mm distal screw and secured it very nicely in the distal femur. I then ensured that everything else in good position on x-ray and irrigated. Karlo Concepcion, certified marketing assistant, then closed in standard fashion and dressed it with Prineo and Telfa and Tegaderm. She was then awakened and taken to recovery in stable condition. BLOOD LOSS: Approximately 300 mL. COMPLICATIONS: None. TRANSINT:[id number] Voice Confirmation ID: [id number] DOCUMENT ID: [id number] OPERATIVE REPORT [id number] SEBASTIAN IRELAND,DALE Peck DO at 0727 CC: [id number] DICTATION DATE: 02/06/211807 BLEACH PACKER: 02/07/21 0320 ADM IN [facility] [address] [place] [id number]
[2021-02-08 07:32] LABS: PHOSPHOROUS 2.8 mg/dL (2.5-4.9)
[2021-02-08 07:32] LABS: MCH 33.8 pg (26.0-34.0); MCHC 34.2 g/dL (31.0-37.0); MEAN PLATELET VOLUME 7.9 fL (7.4-10.4); PLATELET COUNT 78 10x3/uL (130-400); RDW 21.9 % (11.5-14.5); WBC 2.8 10x3/uL (4.8-10.8)
[2021-02-08 07:34] LABS: HEMOGLOBIN 9.1 g/dL (12-16); RBC 2.68 10x6/uL (4.00-5.40)
[2021-02-08 07:35] LABS: HEMATOCRIT 26.5 % (36.0-48.0); MCV 98.7 fL (80.0-100.0)
[2021-02-08 09:38] LABS: LYMPHOCYTES 15 % (15-50); NEUTROPHILS 85 % (40-80); PLATELET ESTIMATE DECREASED
--- NOTE | 2021-02-08 13:01 | NUR ---
REHAB PRESCREENING Rehab referral received and chart reviewed. This patient is pending PT evaluation. Rehab will continue to follow for medical stability and PT eval in order to assess admission criteria. Thank you for this referral! Sera Garcia, PATIENT OBSERVER Rehab PD
--- NOTE | 2021-02-08 21:18 | NUR ---
ADMINISTERED MEDS PER ORDERS. PATIENT THUY WELL. ENCOURAGED TO CALL WITH NEEDS.
[2021-02-09] VITALS: BP 129/61
[2021-02-09 04:00] VITALS: BP 120/56
[2021-02-09 05:38] LABS: BASOPHILS 2.1 % (0-2); EOSINOPHILS 2.6 % (0-7); HEMATOCRIT 25.7 % (36.0-48.0); HEMOGLOBIN 8.8 g/dL (12-16); MCH 34.3 pg (26.0-34.0); MCHC 34.3 g/dL (31.0-37.0); MCV 99.9 fL (80.0-100.0); MEAN PLATELET VOLUME 8.2 fL (7.4-10.4); MONOCYTES 17.5 % (2-11); NEUTROPHILS 54.8 % (40-80); PLATELET COUNT 89 10x3/uL (130-400); RBC 2.57 10x6/uL (4.00-5.40); WBC 2.9 10x3/uL (4.8-10.8)
[2021-02-09 06:00] LABS: ALBUMIN 2.7 g/dL (3.4-5.0); ANION GAP 9.6 mmol/L (8-16); BILIRUBIN - TOTAL 0.34 mg/dL (0.2-1.3); CARBON DIOXIDE 29.2 mmol/L (21.0-32.0); CREATININE - SERUM 1.4 mg/dL (0.6-1.3); MAGNESIUM - SERUM 2.1 mg/dL (1.8-2.4); PHOSPHOROUS 2.2 mg/dL (2.5-4.9); POTASSIUM - SERUM 3.8 mmol/L (3.5-5.1); PROTEIN - SERUM 5.7 g/dL (6.4-8.2)
--- NOTE | 2021-02-09 07:41 | NUR ---
AWAKE AND ALERT. ORIENTED X3. NO C/O AT THIS TIME. LUNGS ARE CLEAR BILATERALLY, NO COUGH NOTED. INSTRUCTED IN USE OF IS WA WITH RETURN DEMONSTRATION. SL TO LEFT FOREARM IS PATENT WITHOUT REDNESS AT INSERTION SITE. GONSALEZ PATENT WITH CLEAR YELLOW URINE. CLAMPED AT THIS TIME FOR BLADDER TRAINING. DENIES NEEDS.
[2021-02-09 08:43] VITALS: BP 141/42
--- NOTE | 2021-02-09 09:45 | NUR ---
ATE MOST OF BREAKFAST. TOOK AM MEDS WITHOUT DIFFICULTY. DENIES NEEDS.
--- NOTE | 2021-02-09 11:30 | NUR ---
GONSALEZ UNCLAMPED AND RETURNED 600 cc CLEAR YELLOW URIEN. RECLAMPED.
[2021-02-09 14:22] VITALS: BP 104/50
--- NOTE | 2021-02-09 14:25 | NUR ---
REHAB PRESCREEN RECEIVED. I WENT AND SPOKE WITH THE PATIENT AND SHE IS IN AGREEMENT TO COME TO INPATIENT REHAB, BUT ONLY IF SHE HAS A PRIVATE ROOM. (I SPOKE WITH THE PD AND WE DO HAVE A PRIVATE ROOM FOR HER). I WILL START HER SCREEN IN A FEW MINUTES AND WE WILL ACCEPT HER TO REHAB TODAY. I HAVE EXPLAINED THIS TO KINGSLEY BHATIA RN CASE MANAGER. THANK YOU FOR THE REFERRAL. CAROL ECHAVARRIA RN CLINICAL LIAISON, INPATIENT REHAB.
--- NOTE | 2021-02-09 14:34 | NUR ---
GONSALEZ UNCLAMPED AT THIS TIME. SPECIMEN SENT TO LAB PER ORDERS. FAMILY AT BEDSIDE.
[2021-02-09 14:44] LABS: BILIRUBIN NEGATIVE (NEGATIVE); KETONE NEGATIVE mg/dL (< 1+); NITRITE NEGATIVE (NEGATIVE); PH 5.5 (5.0-8.0); UROBILINOGEN NORMAL mg/dL (< 2)
--- NOTE | 2021-02-09 16:10 | NUR ---
OFF UNIT VIA WC FOR BONE SCAN
--- NOTE | 2021-02-09 16:18 | MORECARE ---
CASE MANAGEMENT DISCHARGE SUMMARY PATIENT: SEBASTIAN RICHEY UNIT: [id number] ADM DATE: 02/06/21 AGE: 80 : 39 SEX: F ROOM/BED: D.2235 AUTHOR: THUAN,DOC PHYSICIAN: REFERRING PHYSICIAN: YVONNE OLIVEROS MD DATE OF SERVICE: 02/09/21 Case Management Discharge Planning Summary COMMENTS ENTERED DATE: 02/09/21 16:08 CT COMMENT TYPE: Discharge Planning REVIEWER: Pamela Harrell CM met with patient at bedside after obtaining verbal consent. CM discussed availability / needs of home health, REHAB and medical equipment. PATIENT IN AGREEMENT FOR INPATIENT REHAB. IMM SIGNED AND COPY GIVEN, PLACED ON CHART. ANTICIPATE DC TO INPATIENT REHAB AT [facility] TODAY. CM TO FOLLOW AND ASSIST NEEDED. DCP REVIEW SUMMARY ANTICIPATED D/C DATE: EXPECTED LOS : CASE STATUS: DCP Initiated INITIAL REVIEW: 02/06/2021 INITIAL REVIEWER: Pamela Harrell FINAL DISCHARGE DISPOSITION: : FINAL REVIEWER: FINAL REVIEW DATE: DCP Focus Questions & Answers DCP Screen QUESTION: ANSWER High Risk Factors: : Polypharmacy (greater than 10 meds) DCP Evaluation QUESTION: ANSWER Patient's ability to cope with chronic illness : d. No chronic illness Would patient like to participate in any Care Coordination programs (if applicable): : Not applicable Mental health screen: : No mental health history DCP Re-evaluation QUESTION: ANSWER Would patient like to participate in any Care Coordination programs (if applicable): : Not applicable PATIENT: SEBASTIAN RICHEY ENCOUNTER: [id number] MEDICAL RECORD#: [id number] ADMISSION DATE: 02/06/2021 DISCHARGE DATE: ATTENDING MD: YVONNE BUTCHER : AGE: 80 MARITAL STATUS: M DC PLAN ID: [id number] FACILITY: [facility] PRINTED ON: 02/09/21 16:18 CT All edits/amendments must be made on the electronic document DICTATION DATE: 02/09/211617 LEGAL MEDIATOR: WILLARD 02/09/211617 RPT#: [id number] DC DATE: STATUS: ADM IN [facility] [address] [place] [address] END OF REPORT
[2021-02-09] MEDS ORDERED: HYDROCODON-ACE1 EA10 PO (16:50)
--- NOTE | 2021-02-09 17:14 | NUR ---
NOTIFIED AYLEEN, AMBULATORY CARE, [employer]T [employer] GATHERING [facility] PERSONEMERGENCY DEPARTMENT RN, AND BRANDT DIAZFIXTURE BUILDER THAT PATIENT HAS BEEN ACCEPTED TO RM 1116 IN INPATIENT REAHB. HER DISCHARGE ORDERS FROM ACUTE ARE ALREADY IN. CAROL ECHAVARRIA RN CLINICAL LIAISON, INPATIENT REHAB.
--- NOTE | 2021-02-09 17:29 | NUR ---
REPORT CALLED TO BOLA HURST LPN ON REHAB. ALL QUESTIONS ANSWERED. DISCHARGE INSTRUCTIONS GIVEN BOTH VERBALLY AND WRITTEN. ALL QUESTIONS ANSWERED. PATIENT VERBALIZED UNDERSTANDING OF SAME. WILL TRANSFER TO REHAB VIA WC.
--- NOTE | 2021-02-09 17:49 | NUR ---
DISCHARGED TO REHAB VIA . ALL BELONGINGS WITH PATIENT.
--- NOTE | 2021-02-09 17:51 | MORECARE ---
CASE MANAGEMENT DISCHARGE SUMMARY PATIENT: SEBASTIAN RICHEY UNIT: [id number] ADM DATE: 02/06/21 AGE: 80 : 38 SEX: F ROOM/BED: D.[facility] AUTHOR: THUAN,DOC PHYSICIAN: REFERRING PHYSICIAN: YVONNE OLIVEROS MD DATE OF SERVICE: 02/09/21 Case Management Discharge Planning Summary COMMENTS ENTERED DATE: 02/09/21 16:08 CT COMMENT TYPE: Discharge Planning REVIEWER: Pamela Harrell CM met with patient at bedside after obtaining verbal consent. CM discussed availability / needs of home health, REHAB and medical equipment. PATIENT IN AGREEMENT FOR INPATIENT REHAB. IMM SIGNED AND COPY GIVEN, PLACED ON CHART. ANTICIPATE DC TO INPATIENT REHAB AT [facility] TODAY. CM TO FOLLOW AND ASSIST NEEDED. DCP REVIEW SUMMARY ANTICIPATED D/C DATE: EXPECTED LOS : CASE STATUS: DCP Initiated INITIAL REVIEW: 02/06/2021 INITIAL REVIEWER: Pamela Harrell FINAL DISCHARGE DISPOSITION: : FINAL REVIEWER: FINAL REVIEW DATE: DCP Focus Questions & Answers DCP Screen QUESTION: ANSWER High Risk Factors: : Polypharmacy (greater than 10 meds) DCP Evaluation QUESTION: ANSWER Patient's ability to cope with chronic illness : d. No chronic illness Would patient like to participate in any Care Coordination programs (if applicable): : Not applicable Mental health screen: : No mental health history DCP Re-evaluation QUESTION: ANSWER Would patient like to participate in any Care Coordination programs (if applicable): : Not applicable PATIENT: SEBASTIAN RICHEY ENCOUNTER: [id number] MEDICAL RECORD#: [id number] ADMISSION DATE: 02/06/2021 DISCHARGE DATE: 02/09/2021 ATTENDING MD: YVONNE BUTCHER : AGE: 80 MARITAL STATUS: M DC PLAN ID: [id number] FACILITY: [facility] PRINTED ON: 02/09/21 17:51 CT All edits/amendments must be made on the electronic document DICTATION DATE: 02/09/211750 DETAILER FURNITURE: WILLARD 02/09/211750 RPT#: [id number] DC DATE:02/09/21 STATUS: DIS IN [facility] [address] [place] [address] END OF REPORT
--- NOTE | 2021-02-10 14:59 | MORECARE ---
CASE MANAGEMENT DISCHARGE SUMMARY PATIENT: SEBASTIAN RICHEY UNIT: [id number] ADM DATE: 02/06/21 AGE: 80 : 38 SEX: F ROOM/BED: [facility] AUTHOR: THUAN,DOC PHYSICIAN: REFERRING PHYSICIAN: YVONNE OLIVEROS MD DATE OF SERVICE: 02/10/21 Case Management Discharge Planning Summary COMMENTS ENTERED DATE: 02/09/21 16:08 CT COMMENT TYPE: Discharge Planning REVIEWER: Pamela Harrell CM met with patient at bedside after obtaining verbal consent. CM discussed availability / needs of home health, REHAB and medical equipment. PATIENT IN AGREEMENT FOR INPATIENT REHAB. IMM SIGNED AND COPY GIVEN, PLACED ON CHART. ANTICIPATE DC TO INPATIENT REHAB AT [facility] TODAY. CM TO FOLLOW AND ASSIST NEEDED. DCP REVIEW SUMMARY ANTICIPATED D/C DATE: EXPECTED LOS : CASE STATUS: DCP Initiated INITIAL REVIEW: 02/06/2021 INITIAL REVIEWER: Pamela Harrell FINAL DISCHARGE DISPOSITION: : FINAL REVIEWER: FINAL REVIEW DATE: DCP Focus Questions & Answers DCP Screen QUESTION: ANSWER High Risk Factors: : Polypharmacy (greater than 10 meds) DCP Evaluation QUESTION: ANSWER Patient's ability to cope with chronic illness : d. No chronic illness Would patient like to participate in any Care Coordination programs (if applicable): : Not applicable Mental health screen: : No mental health history DCP Re-evaluation QUESTION: ANSWER Would patient like to participate in any Care Coordination programs (if applicable): : Not applicable PATIENT: SEBASTIAN RICHEY ENCOUNTER: [id number] MEDICAL RECORD#: [id number] ADMISSION DATE: 02/06/2021 DISCHARGE DATE: 02/09/2021 ATTENDING MD: YVONNE BUTCHER : AGE: 80 MARITAL STATUS: M DC PLAN ID: [id number] FACILITY: [facility] PRINTED ON: 02/10/21 14:58 CT All edits/amendments must be made on the electronic document DICTATION DATE: 02/10/211457 NURSING SERVICE ADMINISTRATOR: WILLARD 02/10/211457 RPT#: [id number] DC DATE:02/09/21 STATUS: DIS IN [facility] [address] [place] [address] END OF REPORT
== END 2021-02-09 17:50 | DRG 481 ==
LOC: EDBD 09:29 → D.ER 09:29 → D.MS 11:26 → D.EDHOLD 11:26 → D.MS 11:26
PROVIDERS: Family Medicine; Orthopaedic Surgery; ADMIT Emergency Medicine; ATTEND Emergency Medicine
PROC: 0QS604Z Reposition Right Upper Femur with Internal Fixation Device, Open Approach (ICD-10-PCS; principal; 2021-02-06 16:45)
DX: S72.141A Displaced intertrochanteric fracture of right femur, initial encounter for closed fracture (principal); D61.818 Other pancytopenia; C78.02 Secondary malignant neoplasm of left lung; C78.01 Secondary malignant neoplasm of right lung; D62 Acute posthemorrhagic anemia; W18.2XXA Fall in (into) shower or empty bathtub, initial encounter; D53.9 Nutritional anemia, unspecified; F32.9 Major depressive disorder, single episode, unspecified; Z85.3 Personal history of malignant neoplasm of breast; C50.919 Malignant neoplasm of unspecified site of unspecified female breast

== ENCOUNTER 2021-02-09 17:51 | Inpatient (IN) | payer MEDICARE, BC ==
[~2021-02-09] VITALS: Ht 162.6 cm; Wt 70.3 kg
[~2021-02-09 17:51] MED LIST changes: +DILTIAZEM 24HR180 M4 PO; +FUROSEMIDE20 MG PO; +HYDROCODON-ACE1 EA10 PO; +VISTARIL25 MG; +VISTARIL50 MG PO
[2021-02-09 18:33] VITALS: BP 154/52; BMI 26.6
--- NOTE | 2021-02-09 20:06 | NUR ---
ADMIT FOR PHYSICAL REHAB AND SERVICES OF DR ANDRES. AWAKE AND ALERT. RESPIRATIONS UNLABORED ON O2/2L NASAL CANNULA. GONSALEZ PATENT. BLADDER TRAINING IN PROGRESS. LEFT FOREARM SALINE LOCK INTACT WITH NO SIGNS OF INFILTRATION. NO ACUTE DISTRESS NOTED. CALL LIGHT IN REACH.
[2021-02-09 20:40] VITALS: BP 154/52
--- NOTE | 2021-02-09 22:36 | NUR ---
URINE COLLLECTED FOR UA/CS AND SENT TO LAB FOR ANALYSIS.
[2021-02-09 22:51] LABS: BILIRUBIN NEGATIVE (NEGATIVE); KETONE NEGATIVE mg/dL (< 1+); NITRITE NEGATIVE (NEGATIVE); PH 5.5 (5.0-8.0); UROBILINOGEN NORMAL mg/dL (< 2)
--- NOTE | 2021-02-10 00:45 | NUR ---
RESTING QUIETLY. RESPIRATIONS UNLABORED. BLADDER TRAINING ONGOING.
--- NOTE | 2021-02-10 03:26 | NUR ---
MEDICATED FOR PAIN. SEE MAR. O2/2L ON PER NASAL CANNULA. REPOSITIONED FOR COMFORT.
--- NOTE | 2021-02-10 05:39 | NUR ---
AWAKE AND ALERT. SUNSHINE MAY. INSTRUCTED TO NOTIFY NURSE THE FIRST TIME SHE VOIDS OR IF SHE DOESNT VOID IN 4 HOURS. SHE VOICES UNDERSTANDING. RESTING IN BED WITH NO DISTRESS NOTED.
[2021-02-10 07:01] LABS: BASOPHILS 2.5 % (0-2); EOSINOPHILS 3.8 % (0-7); HEMOGLOBIN 10.1 g/dL (12-16); LYMPHOCYTES 25.3 % (15-50); MCH 33.9 pg (26.0-34.0); MCHC 32.1 g/dL (31.0-37.0); MEAN PLATELET VOLUME 8.3 fL (7.4-10.4); MONOCYTES 15.2 % (2-11); NEUTROPHILS 53.2 % (40-80); RBC 2.98 10x6/uL (4.00-5.40); RDW 21.5 % (11.5-14.5)
[2021-02-10 07:10] LABS: HEMATOCRIT 31.4 % (36.0-48.0); MCV 105.4 fL (80.0-100.0); PLATELET COUNT 126 10x3/uL (130-400); WBC 3.9 10x3/uL (4.8-10.8)
[2021-02-10 07:21] LABS: ANION GAP 14.4 mmol/L (8-16); CALCIUM 8.1 mg/dL (8.5-10.1); CARBON DIOXIDE 26.5 mmol/L (21.0-32.0); CREATININE - SERUM 1.3 mg/dL (0.6-1.3); POTASSIUM - SERUM 3.9 mmol/L (3.5-5.1)
[2021-02-10 08:08] VITALS: BP 141/53
--- OUTSIDE RECORDS SUMMARY | 2021-02-10 09:44 | XMS Report ---
Demographics + + + | Address | [address] [place] [address] | | | [place] [address] | + + + | Home Phone | | + + + | Preferred Language | Unknown | + + + | Marital Status | | + + + | Adventism Affiliation | Unknown | + + + | Race | White | + + + | Ethnic Group | Not or | + + + Author + + + | Author | [facility], | | | [facility] | | | [place] | + + + | Organization | [facility], | | | [facility] | | | [place] | + + + | Address | [address] | | | [place] [address] | | | | + + + | Phone | [phone] | + + + Care Team Providers + +------+ + | Care Vault Clerk Name | Role | Phone | + +------+ + | LIANET LOVE | 3 | [phone] | + +------+ + | LIANET LOVE | 4 | [phone] | + +------+ + | ARIANE HATCH | 258 | [phone] | + +------+ + Reason for Referral Reason for Visit Carcinoma of breast Assessment No assessment recorded. Patient Targets + + + + | Encounter Date | Instructions | Goals | | | | | | | | | + + + + | 02/10/2021 | | | | | | | | | | | + + + + Plan of Treatment + + + + + + + | Reminders | | Order | Submit | Provider | Details | | | | Date | Date | | | | | | | | | | | | | | | | | | | | | | | | | | | | | | | + + + + + + + | | | | | BRANDYN | | | | | | | IRENE | | | | | 1 03:00PM | | REFRACTORY TECHNICIAN | | | | | | | | | | | | | | | | | Appointme | Office | | | | | | nts | Visit | | | | | | | | | | | | | | | | | | | | | | | | | | | | | | | | | | | | | | | | | | | | | | | | | | | | | | | | | | | | | + + + + + + + | | None | | | | | | | recorded. | | | | | | | | | | | | | | | | | | | | Lab | | | | | | | | | | | | | | | | | | | | | | | | | | | | | | | | | | | | | | | | | | | | | | | | | | | | | | | | | | | | | | + + + + + + + | | | | | | | | | | | | National | | | | | 1 | | Park | | | | | | 1 | Medical | | | | | | | Center, | | | Referral | general | | | 130 | | | | surgeon | | | Medical | | | | referral | | | [address], Hot | | | | | | | [place], | | | | | | | [place], | | | | | | | [id number], Ph | | | | | | | ([phone]) | | | | | | | [phone] | | | | | | | | | | | | | | | | | | | | | | | | | | | | | | + + + + + + + | | None | | | | | | | recorded. | | | | | | | | | | | | | | | | | | | | | | | | | | | Procedure | | | | | | | s | | | | | | | | | | | | | | | | | | | | | | | | | | | | | | | | | | | | | | | | | | | | | | | | | | | | | | | | | | | | | | + + + + + + + | | None | | | | | | | recorded. | | | | | | | | | | | | | | | | | | | | | | | | | | | Surgeries | | | | | | | | | | | | | | | | | | | | | | | | | | | | | | | | | | | | | | | | | | | | | | | | | | | | | | | | | | | | | | + + + + + + + | | None | | | | | | | recorded. | | | | | | | | | | | | | | | | | | | | | | | | | | | Imaging | | | | | | | | | | | | | | | | | | | | | | | | | | | | | | | | | | | | | | | | | | | | | | | | | | | | | | | | | | | | | | + + + + + + + Results +--------+--------+--------+--------+--------+--------+--------+--------+ | Date | Name | Descri | Value | Unit | Range | Abnorm | Provid | | | | ption | | | | al | er | | | | | | | | Flag | Detail | | | | | | | | | | | | | | | | | | | | | | | | | | | | | | | | | | | | | | | | | | | | | | | | | | | | | | | +--------+--------+--------+--------+--------+--------+--------+--------+ | | - xr | | | | | | | | | right | | | | | | | | | femur | | | | | | | | | 2 | | | | | | | | | views | | | | | | | | | | | | | | | | | | | | | | | | | | | | | No | | | | Nation | | | | | observ | | | | al | | | | | ation | | | | Park | | | | | record | | | | Medica | | | | | ed. | | | | l | | | | | | | | | Center | | | | | | | | | | | | | | | | | | (Imagi | | | | | | | | | ng) | | | | | | | | | | | | | | | | | | | | | | | | | | | | | | | | | | | | | | | | | | | | | | | | | | | | | | | | | | | | | | | | | | | | | | | | | | | | | | | | | | | | | | | | | | | | | | | | | | | | | | | | | | | | | | | | | | | | | | | | | | | | | | | | | | | | | | | 1911 | | | | | | | | | [place] | | | | | | | | | [address], | | | | | | | | | Hot | | | | | | | | | Spring | | | | | | | | | s | | | | | | | | | Nation | | | | | | | | | al | | | | | | | | | Park, | | | | | | | | | [place], | | | | | | | | | [id number], | | | | | | | | | Ph | | | | | | | | | (501) | | | | | | | | | 620[address]23 | | | | | | | | | 75 | | | | | | | | | | | | | | | | | | | | | | | | | | | | | | | | | | | | | | | | | | | | | | | | | | | | | | | | | | | | | | | | | | | | | | | | | | | | | | | | | | | | | | | | | | | | | | | | | | | | +--------+--------+--------+--------+--------+--------+--------+--------+ | | XR, | | | | | | | | | femur | | | | | | | | | | | | | | | | | | | | | | | | | | | | | | | | | | | | | | | | | | | | | | | | | | | | | | | | No | | | | Nation | | | | | observ | | | | al | | | | | ation | | | | Park | | | | | record | | | | Medica | | | | | ed. | | | | l | | | | | | | | | Center | | | | | | | | | | | | | | | | | | (Imagi | | | | | | | | | ng) | | | | | | | | | | | | | | | | | | | | | | | | | | | | | | | | | | | | | | | | | | | | | | | | | | | | | | | | | | | | | | | | | | | | | | | | | | | | | | | | | | | | | | | | | | | | | | | | | | | | | | | | | | | | | | | | | | | | | | | | | | | | | | | | | | | | | | | 1911 | | | | | | | | | [place] | | | | | | | | | [address], | | | | | | | | | Hot | | | | | | | | | Spring | | | | | | | | | s | | | | | | | | | Nation | | | | | | | | | al | | | | | | | | | Park, | | | | | | | | | [place], | | | | | | | | | [id number], | | | | | | | | | Ph | | | | | | | | | (501) | | | | | | | | | 620[address]23 | | | | | | | | | 75 | | | | | | | | | | | | | | | | | | | | | | | | | | | | | | | | | | | | | | | | | | | | | | | | | | | | | | | | | | | | | | | | | | | | | | | | | | | | | | | | | | | | | | | | | | | | | | | | | | | | +--------+--------+--------+--------+--------+--------+--------+--------+ | | - xr | | | | | | | | | right | | | | | | | | | femur | | | | | | | | | 2 | | | | | | | | | views | | | | | | | | | | | | | | | | | | | | | | | | | | | | | No | | | | Nation | | | | | observ | | | | al | | | | | ation | | | | Park | | | | | record | | | | Medica | | | | | ed. | | | | l | | | | | | | | | Center | | | | | | | | | | | | | | | | | | (Imagi | | | | | | | | | ng) | | | | | | | | | | | | | | | | | | | | | | | | | | | | | | | | | | | | | | | | | | | | | | | | | | | | | | | | | | | | | | | | | | | | | | | | | | | | | | | | | | | | | | | | | | | | | | | | | | | | | | | | | | | | | | | | | | | | | | | | | | | | | | | | | | | | | | | 1910 | | | | | | | | | [address] | | | | | | | | | [address], | | | | | | | | | Hot | | | | | | | | | Spring | | | | | | | | | s | | | | | | | | | Nation | | | | | | | | | al | | | | | | | | | Park, | | | | | | | | | [place], | | | | | | | | | [id number], | | | | | | | | | Ph | | | | | | | | | (501) | | | | | | | | | 620[address]23 | | | | | | | | | 75 | | | | | | | | | | | | | | | | | | | | | | | | | | | | | | | | | | | | | | | | | | | | | | | | | | | | | | | | | | | | | | | | | | | | | | | | | | | | | | | | | | | | | | | | | | | | | | | | | | | | +--------+--------+--------+--------+--------+--------+--------+--------+ Problems +---------+---------+---------+---------+---------+---------+---------+ | Name | Status | Last | Onset | Resolut | Lateral | Problem | | | | Modifie | Date | ion | ity | Type | | | | d Date | | Date | | | | | | | | | | | | | | | | | | | | | | | | | | | | | | | | | | | | | | | | | | | +---------+---------+---------+---------+---------+---------+---------+ | Carcino | Active | | | | | | | ma of | | 014 | | | | | | breast | | | | | | | | | | | | | | | | | | | | | | | | | | | | | | | | | | | | | | | | | | | | | | | +---------+---------+---------+---------+---------+---------+---------+ | Primary | Active | | | | | | | | | 019 | 019 | | | | | maligna | | | | | | | | nt | | | | | | | | neoplas | | | | | | | | m of | | | | | | | | female | | | | | | | | breast | | | | | | | | | | | | | | | | | | | | | | | | | | | | | | | | | | | | | | | | | | | | | | | +---------+---------+---------+---------+---------+---------+---------+ | Intradu | Active | | | | | | | ctal | | 016 | | | | | | carcino | | | | | | | | ma of | | | | | | | | breast | | | | | | | | | | | | | | | | | | | | | | | | | | | | | | | | | | | | | | | | | | | | | | | +---------+---------+---------+---------+---------+---------+---------+ | Congest | Active | | | | | | | liam | | 014 | | | | | | heart | | | | | | | | failure | | | | | | | | | | | | | | | | | | | | | | | | | | | | | | | | | | | | | | | | | | | | | | | | | | | | | | | +---------+---------+---------+---------+---------+---------+---------+ | Allergi | Active | | | | | | | c | | 014 | | | | | | rhiniti | | | | | | | | s | | | | | | | | | | | | | | | | | | | | | | | | | | | | | | | | | | | | | | | | | | | | | | | +---------+---------+---------+---------+---------+---------+---------+ | Asthma | Active | | | | | | | | | 015 | | | | | | | | | | | | | | | | | | | | | | | | | | | | | | | | | | | | | | | | | | | | | +---------+---------+---------+---------+---------+---------+---------+ | Pleural | Active | | | | | | | | | 013 | | | | | | effusio | | | | | | | | n | | | | | | | | | | | | | | | | | | | | | | | | | | | | | | | | | | | | | | | | | | | | | | | +---------+---------+---------+---------+---------+---------+---------+ | Atelect | Active | | | | | | | asis | | 014 | | | | | | | | | | | | | | | | | | | | | | | | | | | | | | | | | | | | | | | | | | | | | +---------+---------+---------+---------+---------+---------+---------+ | Restric | Active | | | | | | | tive | | 016 | | | | | | lung | | | | | | | | disease | | | | | | | | | | | | | | | | | | | | | | | | | | | | | | | | | | | | | | | | | | | | | | | | | | | | | | | +---------+---------+---------+---------+---------+---------+---------+ | Gastroe | Active | | | | | | | sophage | | 014 | | | | | | al | | | | | | | | reflux | | | | | | | | disease | | | | | | | | | | | | | | | | | | | | | | | | | | | | | | | | | | | | | | | | | | | | | | | | | | | | | | | +---------+---------+---------+---------+---------+---------+---------+ | Gastroe | Active | | | | | | | sophage | | 019 | 019 | | | | | al | | | | | | | | reflux | | | | | | | | disease | | | | | | | | with | | | | | | | | hiatal | | | | | | | | hernia | | | | | | | | | | | | | | | | | | | | | | | | | | | | | | | | | | | | | | | | | | | | | | | +---------+---------+---------+---------+---------+---------+---------+ | Acute | Active | | | | | | | peptic | | 015 | | | | | | ulcer | | | | | | | | | | | | | | | | | | | | | | | | | | | | | | | | | | | | | | | | | | | | | | | +---------+---------+---------+---------+---------+---------+---------+ | Localiz | Active | | | | | CHRONIC | | ed, | | 011 | | | | | | primary | | | | | | | | | | | | | | | | osteoar | | | | | | | | thritis | | | | | | | | | | | | | | | | | | | | | | | | | | | | | | | | | | | | | | | | | | | | | | | | | | | | | | | +---------+---------+---------+---------+---------+---------+---------+ | Localiz | Active | | | | | | | ed | | 011 | | | | | | osteoar | | | | | | | | throsis | | | | | | | | | | | | | | | | | | | | | | | | | | | | | | | | | | | | | | | | | | | | | | | | | | | | | | | +---------+---------+---------+---------+---------+---------+---------+ | Degener | Active | | | | | | | ative | | 016 | | | | | | joint | | | | | | | | disease | | | | | | | | of | | | | | | | | hand | | | | | | | | | | | | | | | | | | | | | | | | | | | | | | | | | | | | | | | | | | | | | | | +---------+---------+---------+---------+---------+---------+---------+ | Osteoar | Active | | | | | | | thritis | | 011 | | | | | | of | | | | | | | | knee | | | | | | | | | | | | | | | | | | | | | | | | | | | | | | | | | | | | | | | | | | | | | | | +---------+---------+---------+---------+---------+---------+---------+ | Ganglio | Active | | | | | | | n of | | 011 | | | | | | joint | | | | | | | | | | | | | | | | | | | | | | | | | | | | | | | | | | | | | | | | | | | | | | | +---------+---------+---------+---------+---------+---------+---------+ | Dyspnea | Active | | | | | | | | | 014 | | | | | | | | | | | | | | | | | | | | | | | | | | | | | | | | | | | | | | | | | | | | | +---------+---------+---------+---------+---------+---------+---------+ | Decreas | Active | | | | | | | ed | | 016 | | | | | | diffusi | | | | | | | | on | | | | | | | | capacit | | | | | | | | y of | | | | | | | | lung | | | | | | | | | | | | | | | | | | | | | | | | | | | | | | | | | | | | | | | | | | | | | | | +---------+---------+---------+---------+---------+---------+---------+ | Closed | Active | | | | | | | fractur | | 011 | | | | | | e of | | | | | | | | surgica | | | | | | | | l neck | | | | | | | | of | | | | | | | | humerus | | | | | | | | | | | | | | | | | | | | | | | | | | | | | | | | | | | | | | | | | | | | | | | | | | | | | | | +---------+---------+---------+---------+---------+---------+---------+ | Breast | Active | | | | | | | lump | | 013 | | | | | | | | | | | | | | | | | | | | | | | | | | | | | | | | | | | | | | | | | | | | | +---------+---------+---------+---------+---------+---------+---------+ | Pain of | Active | | | | | | | right | | 020 | 020 | | | | | wrist | | | | | | | | | | | | | | | | | | | | | | | | | | | | | | | | | | | | | | | | | | | | | | | +---------+---------+---------+---------+---------+---------+---------+ Procedures Surgical History + + + + + | Date | Name | Laterality | Status | | | | | | | | | | | | | | | | + + + + + | 07/14/2010 | | | completed | | | | | | | | | | | | | Partial removal | | | | | finger bone | | | | | | | | | | | | | | | | | | | | | | | | | | | | + + + + + | 07/14/2010 | | | completed | | | | | | | | | | | | | Remove tendon | | | | | sheath lesion | | | | | | | | | | | | | | | | | | | | | | | | | | | | + + + + + | 04/24/2010 | | | completed | | | | | | | | | | | | | Orthopaedic | | | | | Surgery | | | | | | | | | | | | | | | | | | | | | | | | | | | | + + + + + Imaging Results None recorded. Medical Equipment None Reported. Allergies + + + + + + + | Name | Reaction | Severity | Status | Onset | Category | | | | | | | | | | | | | | | | | | | | | | | | | | | | | + + + + + + + | | | | | | | | | | | | | | | | | | | | | | | | | | | | | | | | | | | | Demerol | | | active | | Medicatio | | | | | | | n Allergy | | | | | | | | | | | | | | | | | | | | | | | | | | | | | | | | | | | | | | | | | | | | | | | | | | | | | | | | | + + + + + + + | | | | | | | | | | | | | | | | | | | | | | | | | | | | | | | | | | | | morphine | | | active | | Medicatio | | | | | | | n Allergy | | | | | | | | | | | | | | | | | | | | | | | | | | | | | | | | | | | | | | | | | | | | | | | | | | | | | | | | | + + + + + + + Medications + + + + + + + | Name | Sig | Start | Stop Date | Status | Note | | | | Date | | | | | | | | | | | | | | | | | | | | | | | | | | | | | | | | + + + + + + + | | | | | completed | | | | | | | | | | | | | 05/28/ | | | | | | | 9 | | | | | TAKE | | | | | | | 1 CAPSULE | | | | | | | BY MOUTH | | | | | | sucralfat | FOUR | | | | | | e 1gm | TIMES | | | | | | capsule | DAILY | | | | | | eaches | | | | | | | | | | | | | | | | | | | | | | | | | | | | | | | | | | | | | | | | | | | | | | | | | | | | | | | | | | | | | | | | | | | | | | | | | | | | + + + + + + + | | | | | completed | | | | | | | | | | | | | // | | | | | | | 0 | | | | | TK 1 | | | | | | | T GILA D. | | | | | | | | | | | | | anastrozo | | | | | | | le 1 mg | | | | | | | tablet | | | | | | | | | | | | | | | | | | | | | | | | | | | | | | | | | | | | | | | | | | | | | | | | | | | | | | | | | | | | | | | | | | | | | | | | | | | | + + + + + + + | | | | | active | | | | | | | | | | | | | | | | | | | | | | | | | | | | | | | | INHALE | | | | | | | ONE PUFF | | | | | | fluticaso | BY MOUTH | | | | | | ne 250 | TWICE | | | | | | mcg-salme | DAILY | | | | | | terol 50 | | | | | | | mcg/dose | | | | | | | blistr | | | | | | | powdr for | | | | | | | | | | | | | | inhalatio | | | | | | | n | | | | | | | | | | | | | | | | | | | | | | | | | | | | | | | | | | | | | | | | | | | | | | | | | | | | | | | | | | | | | | | | | | | | | | | | | | | | + + + + + + + | | | | | completed | | | | | | | | | | | | | 05/02/201 | | | | | | | 8 | | | | | TK | | | | | | | ONE C PO | | | | | | | QD | | | | | | venlafaxi | | | | | | | ne ER 75 | | | | | | | mg | | | | | | | capsule,e | | | | | | | xtended | | | | | | | release | | | | | | | 24 hr | | | | | | | | | | | | | | | | | | | | | | | | | | | | | | | | | | | | | | | | | | | | | | | | | | | | | | | | | | | | | | | | | | | | | | | | | | | | + + + + + + + | | | | | completed | | | | | | | | | | | | | | | | | | | 9 | 0 | | | | | Take | | | | | | | 1 tablet | | | | | | | every day | | | | | | Protonix | by oral | | | | | | 40 mg | route | | | | | | tablet,de | before | | | | | | layed | meals for | | | | | | release | 30 days. | | | | | | | | | | | | | | | | | | | | | | | | | | | | | | | | | | | | | | | | | | | | | | | | | | | | | | | | | | | | | | | | | | | | | | | | | | | + + + + + + + | | | | | active | | | | | | | | | | | | | | | | | | | 1 | | | | | | | | | | | | | INHALE | | | | | | | ONE VIAL | | | | | | ipratropi | VIA | | | | | | um 0.5 | NEBULIZER | | | | | | mg-albute | EVERY 6 | | | | | | rol 3 mg | HOURS | | | | | | (2.5 mg | NEEDED | | | | | | base)/3 | | | | | | | mL | | | | | | | nebulizat | | | | | | | ion soln | | | | | | | | | | | | | | | | | | | | | | | | | | | | | | | | | | | | | | | | | | | | | | | | | | | | | | | | | | | | | | | | | | | | | | | | | | | | + + + + + + + | | | | | completed | | | | | | | | | | | | | | | | | | | 5 | 8 | | | | | Take | | | | | | | 10 mL 4 | | | | | | | times a | | | | | | Carafate | day by | | | | | | 100 mg/mL | oral | | | | | | oral | route. | | | | | | suspensio | | | | | | | n | | | | | | | | | | | | | | | | | | | | | | | | | | | | | | | | | | | | | | | | | | | | | | | | | | | | | | | | | | | | | | | | | | | | | | | | | | | | + + + + + + + | | | | | completed | | | | | | | | | | | | | | | | | | | | 0 | | | | | | | | | | | | | | | | | | | | | | | | | bumetanid | | | | | | | e 2 mg | | | | | | | tablet | | | | | | | | | | | | | | | | | | | | | | | | | | | | | | | | | | | | | | | | | | | | | | | | | | | | | | | | | | | | | | | | | | | | | | | | | | | | + + + + + + + | | | | | active | | | | | | | | | | | | | | | | | | | | | | | | | | | | | | | | | | | | | | | | | | | | | diltiazem | | | | | | | ER 180 | | | | | | | mg | | | | | | | capsule,2 | | | | | | | 4 | | | | | | | hr,extend | | | | | | | ed | | | | | | | release | | | | | | | | | | | | | | | | | | | | | | | | | | | | | | | | | | | | | | | | | | | | | | | | | | | | | | | | | | | | | | | | | | | | | | | | | | | | + + + + + + + | | | | | active | | | | | | | | | | | | | | | | | | | | | | | | | | | | | | | | | | | | | | | | | | | | | Klor-Con | | | | | | | 10 mEq | | | | | | | tablet,ex | | | | | | | tended | | | | | | | release | | | | | | | | | | | | | | | | | | | | | | | | | | | | | | | | | | | | | | | | | | | | | | | | | | | | | | | | | | | | | | | | | | | | | | | | | | | | + + + + + + + | | | | | active | | | | | | | | | | | | | | | | | | | | | | | | | TAKE | | | | | | | ONE | | | | | | | CAPSULE | | | | | | diltiazem | BY MOUTH | | | | | | CD 180 | DAILY | | | | | | mg | | | | | | | capsule,e | | | | | | | xtended | | | | | | | release | | | | | | | 24 hr | | | | | | | | | | | | | | | | | | | | | | | | | | | | | | | | | | | | | | | | | | | | | | | | | | | | | | | | | | | | | | | | | | | | | | | | | | | | + + + + + + + | | | | | active | | | | | | | | | | | | | | | | | | | | | | | | | TK 1 | | | | | | | T PO ONCE | | | | | | | D | | | | | | [place] | | | | | | | Thyroid | | | | | | | 180 mg | | | | | | | tablet | | | | | | | | | | | | | | | | | | | | | | | | | | | | | | | | | | | | | | | | | | | | | | | | | | | | | | | | | | | | | | | | | | | | | | | | | | | | + + + + + + + | | | | | completed | | | | | | | | | | | | | 04/21/202 | | | | | | | 0 | | | | | | | | | | | | | | | | | | | | | | | | | amiodaron | | | | | | | e 200 mg | | | | | | | tablet | | | | | | | | | | | | | | | | | | | | | | | | | | | | | | | | | | | | | | | | | | | | | | | | | | | | | | | | | | | | | | | | | | | | | | | | | | | | + + + + + + + | | | | | completed | | | | | | | | | | | | | 10/14/201 | | | | | | | 9 | | | | | | | | | | | | | | | | | | | | | | | | | citalopra | | | | | | | m 10 mg | | | | | | | tablet | | | | | | | | | | | | | | | | | | | | | | | | | | | | | | | | | | | | | | | | | | | | | | | | | | | | | | | | | | | | | | | | | | | | | | | | | | | | + + + + + + + | | | | | completed | | | | | | | | | | | | | 04/21/202 | | | | | | | 0 | | | | | | | | | | | | | | | | | | | | | | | | | hydrocodo | | | | | | | ne 5 | | | | | | | mg-acetam | | | | | | | inophen | | | | | | | 325 mg | | | | | | | tablet | | | | | | | | | | | | | | | | | | | | | | | | | | | | | | | | | | | | | | | | | | | | | | | | | | | | | | | | | | | | | | | | | | | | | | | | | | | | + + + + + + + | | | | | active | | | | | | | | | | | | | | | | | | | | | | | | | TAKE | | | | | | | ONE | | | | | | | TABLET BY | | | | | | sucralfat | MOUTH | | | | | | e 1 gram | FOUR | | | | | | tablet | TIMES A | | | | | | | DAY | | | | | | | | | | | | | | | | | | | | | | | | | | | | | | | | | | | | | | | | | | | | | | | | | | | | | | | | | | | | | | | | | | | | + + + + + + + | | | | | completed | | | | | | | | | | | | | 05/02/201 | | | | | | | 8 | | | | | | | | | | | | | | | | | | | | | | | | | ondansetr | | | | | | | on HCl 4 | | | | | | | mg tablet | | | | | | | | | | | | | | | | | | | | | | | | | | | | | | | | | | | | | | | | | | | | | | | | | | | | | | | | | | | | | | | | | | | | | | | | | | | | + + + + + + + | | | | | completed | | | | | | | | | | | | | 05/02/201 | | | | | | | 8 | | | | | TK 1 | | | | | | | T GILA GÓMEZ | | | | | | | | | | | | | famotidin | | | | | | | e 40 mg | | | | | | | tablet | | | | | | | | | | | | | | | | | | | | | | | | | | | | | | | | | | | | | | | | | | | | | | | | | | | | | | | | | | | | | | | | | | | | | | | | | | | | + + + + + + + | | | | | active | | | | | | | | | | | | | | | | | | | | | | | | | TAKE | | | | | | | ONE | | | | | | | TABLET BY | | | | | | [place] | MOUTH | | | | | | Thyroid | ONCE | | | | | | 120 mg | DAILY | | | | | | tablet | | | | | | | | | | | | | | | | | | | | | | | | | | | | | | | | | | | | | | | | | | | | | | | | | | | | | | | | | | | | | | | | | | | | | | | | | | | | + + + + + + + | | | | | active | | | | | | | | | | | | | | | | | | | | | | | | | | | | | | | | | | | | | | | | | | | | | acyclovir | | | | | | | 400 mg | | | | | | | tablet | | | | | | | | | | | | | | | | | | | | | | | | | | | | | | | | | | | | | | | | | | | | | | | | | | | | | | | | | | | | | | | | | | | | | | | | | | | | + + + + + + + | | | | | active | | | | | | | | | | | | | | | | | | | | | | | | | | | | | | | | | | | | | | | | | | | | | sulfameth | | | | | | | oxazole | | | | | | | 800 | | | | | | | mg-trimet | | | | | | | hoprim | | | | | | | 160 mg | | | | | | | tablet | | | | | | | | | | | | | | | | | | | | | | | | | | | | | | | | | | | | | | | | | | | | | | | | | | | | | | | | | | | | | | | | | | | | | | | | | | | | + + + + + + + | | | | | active | | | | | | | | | | | | | | | | | | | | | | | | | | | | | | | | | | | | | | | | | | | | | hydrocodo | | | | | | | ne 10 | | | | | | | mg-acetam | | | | | | | inophen | | | | | | | 325 mg | | | | | | | tablet | | | | | | | | | | | | | | | | | | | | | | | | | | | | | | | | | | | | | | | | | | | | | | | | | | | | | | | | | | | | | | | | | | | | | | | | | | | | + + + + + + + | | | | | active | | | | | | | | | | | | | | | | | | | | | | | | | TK 15 | | | | | | | ML PO | | | | | | | WITH EACH | | | | | | potassium | LASIX | | | | | | chloride | | | | | | | 20 | | | | | | | mEq/15 mL | | | | | | | oral | | | | | | | liquid | | | | | | | | | | | | | | | | | | | | | | | | | | | | | | | | | | | | | | | | | | | | | | | | | | | | | | | | | | | | | | | | | | | | | | | | | | | | + + + + + + + | | | | | completed | | | | | | | | | | | | | | | | | | | 8 | 8 | | | | | Take | | | | | | | 1 mL by | | | | | | | injection | | | | | | [place] | route. | | | | | | 40 mg/mL | | | | | | | suspensio | | | | | | | n for | | | | | | | injection | | | | | | | | | | | | | | | | | | | | | | | | | | | | | | | | | | | | | | | | | | | | | | | | | | | | | | | | | | | | | | | | | | | | | | | | | | | | + + + + + + + | | | | | active | | | | | | | | | | | | | | | | | | | | | | | | | TAKE | | | | | | | ONE | | | | | | | TABLET BY | | | | | | meloxicam | MOUTH | | | | | | 7.5 mg | ONCE | | | | | | tablet | DAILY | | | | | | | | | | | | | | | | | | | | | | | | | | | | | | | | | | | | | | | | | | | | | | | | | | | | | | | | | | | | | | | | | | | | | | | | | | | + + + + + + + | | | | | active | | | | | | | | | | | | | | | | | | | | | | | | | TAKE | | | | | | | ONE | | | | | | | TABLET BY | | | | | | citalopra | MOUTH | | | | | | m 20 mg | ONCE | | | | | | tablet | DAILY | | | | | | | | | | | | | | | | | | | | | | | | | | | | | | | | | | | | | | | | | | | | | | | | | | | | | | | | | | | | | | | | | | | | | | | | | | | + + + + + + + | | | | | active | | | | | | | | | | | | | | | | | | | | | | | | | TAKE | | | | | | | ONE | | | | | | | TABLET BY | | | | | | potassium | MOUTH | | | | | | chloride | ONCE | | | | | | ER 20 | DAILY | | | | | | mEq | | | | | | | tablet,ex | | | | | | | tended | | | | | | | release(p | | | | | | | art/cryst | | | | | | | ) | | | | | | | | | | | | | | | | | | | | | | | | | | | | | | | | | | | | | | | | | | | | | | | | | | | | | | | | | | | | | | | | | | | | | | | | | | | | + + + + + + + | | | | | active | | | | | | | | | | | | 04/21/202 | | | | | | | 0 | | | | | | Take | | | | | | | 1 tablet | | | | | | | twice a | | | | | | famotidin | day by | | | | | | e 20 mg | oral | | | | | | tablet | route. | | | | | | | | | | | | | | | | | | | | | | | | | | | | | | | | | | | | | | | | | | | | | | | | | | | | | | | | | | | | | | | | | | | | | | | | | | | + + + + + + + | | | | | active | | | | | | | | | | | | | | | | | | | | | | | | | | | | | | | | | | | | | | | | | | | | | lorazepam | | | | | | | 0.5 mg | | | | | | | tablet | | | | | | | | | | | | | | | | | | | | | | | | | | | | | | | | | | | | | | | | | | | | | | | | | | | | | | | | | | | | | | | | | | | | | | | | | | | | + + + + + + + | | | | | completed | | | | | | | | | | | | | 11/01/201 | | | | | | | 8 | | | | | | | | | | | | | | | | | | | | | | | | | sucralfat | | | | | | | e (bulk) | | | | | | | powder | | | | | | | | | | | | | | | | | | | | | | | | | | | | | | | | | | | | | | | | | | | | | | | | | | | | | | | | | | | | | | | | | | | | | | | | | | | | + + + + + + + | | | | | active | | | | | | | | | | | | | | | | | | | | | | | | | TAKE | | | | | | | ONE | | | | | | | TABLET BY | | | | | | aspirin | MOUTH | | | | | | 325 mg | DAILY | | | | | | tablet,de | | | | | | | layed | | | | | | | release | | | | | | | | | | | | | | | | | | | | | | | | | | | | | | | | | | | | | | | | | | | | | | | | | | | | | | | | | | | | | | | | | | | | | | | | | | | | + + + + + + + | | | | | active | | | | | | | | | | | | 01/11/201 | | | | | | | 6 | | | | | | Take | | | | | | | 1 mL by | | | | | | | injection | | | | | | Kenalog | route as | | | | | | 10 mg/mL | | | | | | | suspensio | directed. | | | | | | n for | | | | | | | injection | | | | | | | | | | | | | | | | | | | | | | | | | | | | | | | | | | | | | | | | | | | | | | | | | | | | | | | | | | | | | | | | | | | | | | | | | | | | + + + + + + + | | | | | active | | | | | | | | | | | | | | | | | | | | | | | | | | | | | | | | | | | | | | | | | | | | | meclizine | | | | | | | 25 mg | | | | | | | tablet | | | | | | | | | | | | | | | | | | | | | | | | | | | | | | | | | | | | | | | | | | | | | | | | | | | | | | | | | | | | | | | | | | | | | | | | | | | | + + + + + + + | | | | | completed | | | | | | | | | | | | | //201 | | | | | | | 9 | | | | | | | | | | | | | | | | | | | | | | | | | cephalexi | | | | | | | n 500 mg | | | | | | | capsule | | | | | | | | | | | | | | | | | | | | | | | | | | | | | | | | | | | | | | | | | | | | | | | | | | | | | | | | | | | | | | | | | | | | | | | | | | | | + + + + + + + | | | | | active | | | | | | | | | | | | 10/04/201 | | | | | | | 5 | | | | | | TAKE | | | | | | | 1 CAPSULE | | | | | | | BY MOUTH | | | | | | esomepraz | EVERY | | | | | | ole | DAY | | | | | | magnesium | | | | | | | 40 mg | | | | | | | capsule,d | | | | | | | elayed | | | | | | | release | | | | | | | | | | | | | | | | | | | | | | | | | | | | | | | | | | | | | | | | | | | | | | | | | | | | | | | | | | | | | | | | | | | | | | | | | | | | + + + + + + + | | | | | completed | | | | | | | | | | | | | 04/21/202 | | | | | | | 0 | | | | | | | | | | | | | | | | | | | | | | | | | hyoscyami | | | | | | | ne 0.125 | | | | | | | mg | | | | | | | sublingua | | | | | | | l tablet | | | | | | | | | | | | | | | | | | | | | | | | | | | | | | | | | | | | | | | | | | | | | | | | | | | | | | | | | | | | | | | | | | | | | | | | | | | | + + + + + + + | | | | | active | | | | | | | | | | | | | | | | | | | | | | | | | TAKE | | | | | | | 1 TABLET | | | | | | | BY MOUTH | | | | | | metoprolo | TWICE | | | | | | l | DAILY | | | | | | tartrate | | | | | | | 50 mg | | | | | | | tablet | | | | | | | | | | | | | | | | | | | | | | | | | | | | | | | | | | | | | | | | | | | | | | | | | | | | | | | | | | | | | | | | | | | | | | | | | | | | + + + + + + + | | | | | completed | | | | | | | | | | | | | 04/21/202 | | | | | | | 0 | | | | | | | | | | | | | | | | | | | | | | | | | buspirone | | | | | | | 7.5 mg | | | | | | | tablet | | | | | | | | | | | | | | | | | | | | | | | | | | | | | | | | | | | | | | | | | | | | | | | | | | | | | | | | | | | | | | | | | | | | | | | | | | | | + + + + + + + | | | | | completed | | | | | | | | | | | | | 05/02/201 | | | | | | | 8 | | | | | | | | | | | | | | | | | | | | | | | | | chlordiaz | | | | | | | epoxide-c | | | | | | | lidinium | | | | | | | 5 mg-2.5 | | | | | | | mg | | | | | | | capsule | | | | | | | | | | | | | | | | | | | | | | | | | | | | | | | | | | | | | | | | | | | | | | | | | | | | | | | | | | | | | | | | | | | | | | | | | | | | + + + + + + + | | | | | active | | | | | | | | | | | | | | | | | | | | | | | | | TAKE | | | | | | | 1 TABLET | | | | | | | ORALLY | | | | | | bumetanid | DAILY. | | | | | | e 1 mg | | | | | | | tablet | | | | | | | | | | | | | | | | | | | | | | | | | | | | | | | | | | | | | | | | | | | | | | | | | | | | | | | | | | | | | | | | | | | | | | | | | | | | + + + + + + + | | | | | active | | | | | | | | | | | | | | | | | | | | | | | | | TAKE | | | | | | | ONE | | | | | | | TABLET BY | | | | | | monteluka | MOUTH | | | | | | st 10 mg | ONCE | | | | | | tablet | DAILY | | | | | | | | | | | | | | | | | | | | | | | | | | | | | | | | | | | | | | | | | | | | | | | | | | | | | | | | | | | | | | | | | | | | | | | | | | | + + + + + + + | | | | | active | | | | | | | | | | | | | | | | | | | | | | | | | TAKE | | | | | | | 1 TABLET | | | | | | | BY MOUTH | | | | | | furosemid | TWICE | | | | | | e 20 mg | DAILY | | | | | | tablet | NEEDED | | | | | | | | | | | | | | | | | | | | | | | | | | | | | | | | | | | | | | | | | | | | | | | | | | | | | | | | | | | | | | | | | | | | | | | | | | | + + + + + + + | | | | | active | | | | | | | | | | | | | | | | | | | | | | | | | | | | | | | | | | | | | | | | | | | | | lorazepam | | | | | | | 1 mg | | | | | | | tablet | | | | | | | | | | | | | | | | | | | | | | | | | | | | | | | | | | | | | | | | | | | | | | | | | | | | | | | | | | | | | | | | | | | | | | | | | | | | + + + + + + + | | | | | active | | | | | | | | | | | | | | | | | | | | | | | | | USE 2 | | | | | | | SPRAYS | | | | | | | IN EACH | | | | | | azelastin | NOSTRIL | | | | | | e 137 mcg | TWICE | | | | | | (0.1 %) | DAILY | | | | | | nasal | | | | | | | spray | | | | | | | aerosol | | | | | | | | | | | | | | | | | | | | | | | | | | | | | | | | | | | | | | | | | | | | | | | | | | | | | | | | | | | | | | | | | | | | | | | | | | | | + + + + + + + | | | | | completed | | | | | | | | | | | | | 05/02/201 | | | | | | | 8 | | | | | | | | | | | | | | | | | | | | | | | | | letrozole | | | | | | | 2.5 mg | | | | | | | tablet | | | | | | | | | | | | | | | | | | | | | | | | | | | | | | | | | | | | | | | | | | | | | | | | | | | | | | | | | | | | | | | | | | | | | | | | | | | | + + + + + + + | | | | | active | | | | | | | | | | | | | | | | | | | | | | | | | | | | | | | | | | | | | | | | | | | | | methylpre | | | | | | | dnisolone | | | | | | | 4 mg | | | | | | | tablets | | | | | | | in a dose | | | | | | | pack | | | | | | | | | | | | | | | | | | | | | | | | | | | | | | | | | | | | | | | | | | | | | | | | | | | | | | | | | | | | | | | | | | | | | | | | | | | | + + + + + + + | | | | | active | | | | | | | | | | | | | | | | | | | | | | | | | | | | | | | | INHALE 2 | | | | | | | PUFFS | | | | | | albuterol | EVERY 4 | | | | | | sulfate | HOURS | | | | | | HFA 90 | NEEDED | | | | | | mcg/actua | FOR | | | | | | tion | SHORTNESS | | | | | | aerosol | OF | | | | | | inhaler | BREATH | | | | | | | | | | | | | | | | | | | | | | | | | | | | | | | | | | | | | | | | | | | | | | | | | | | | | | | | | | | | | | | | | | | | | | | | | | | + + + + + + + | | | | | active | | | | | | | | | | | | | | | | | | | | | | | | | | | | | | | | | | | | | | | | | | | | | megestrol | | | | | | | 20 mg | | | | | | | tablet | | | | | | | | | | | | | | | | | | | | | | | | | | | | | | | | | | | | | | | | | | | | | | | | | | | | | | | | | | | | | | | | | | | | | | | | | | | | + + + + + + + | | | | | active | | | | | | | | | | | | | | | | | | | | | | | | | | | | | | | | DISSOLVE | | | | | | | 2 TABLETS | | | | | | ondansetr | UNDER | | | | | | on 4 mg | THE | | | | | | disintegr | TONGUE | | | | | | ating | EVERY 12 | | | | | | tablet | HOURS | | | | | | | NEEDED | | | | | | | | | | | | | | | | | | | | | | | | | | | | | | | | | | | | | | | | | | | | | | | | | | | | | | | | | | | | | | | | | | | | + + + + + + + | | | | | active | | | | | | | | | | | | | | | | | | | | | | | | | | | | | | | | | | | | | | | | | | | | | betametha | | | | | | | sone sod | | | | | | | phos | | | | | | | (bulk) | | | | | | | powder | | | | | | | | | | | | | | | | | | | | | | | | | | | | | | | | | | | | | | | | | | | | | | | | | | | | | | | | | | | | | | | | | | | | | | | | | | | | + + + + + + + | | | | | active | | | | | | | | | | | | | | | | | | | | | | | | | USE 2 | | | | | | | SPRAYS | | | | | | | IN EACH | | | | | | fluticaso | NOSTRIL | | | | | | ne | ONCE | | | | | | propionat | DAILY | | | | | | e 50 | | | | | | | mcg/actua | | | | | | | tion | | | | | | | nasal | | | | | | | spray,edwin | | | | | | | pension | | | | | | | | | | | | | | | | | | | | | | | | | | | | | | | | | | | | | | | | | | | | | | | | | | | | | | | | | | | | | | | | | | | | | | | | | | | | + + + + + + + | | | | | active | | | | | | | | | | | | | | | | | | | | | | | | | | | | | | | | | | | | | | | | | | | | | esomepraz | | | | | | | ole | | | | | | | magnesium | | | | | | | 20 mg | | | | | | | capsule,d | | | | | | | elayed | | | | | | | release | | | | | | | | | | | | | | | | | | | | | | | | | | | | | | | | | | | | | | | | | | | | | | | | | | | | | | | | | | | | | | | | | | | | | | | | | | | | + + + + + + + | | | | | active | | | | | | | | | | | | | | | | | | | | | | | | | TAKE | | | | | | | 1 TO 2 | | | | | | | CAPSULES | | | | | | hydroxyzi | BY MOUTH | | | | | | ne | EVERY | | | | | | pamoate | NIGHT AT | | | | | | 25 mg | BEDTIME | | | | | | capsule | NEEDED | | | | | | | FOR | | | | | | | SLEEP | | | | | | | | | | | | | | | | | | | | | | | | | | | | | | | | | | | | | | | | | | | | | | | | | | | | | | | | | | | | | + + + + + + + | | | | | active | | | | | | | | | | | | | | | | | | | | | | | | | TAKE | | | | | | | 1 TABLET | | | | | | | BY MOUTH | | | | | | metoprolo | TWICE | | | | | | l | DAILY | | | | | | tartrate | | | | | | | 25 mg | | | | | | | tablet | | | | | | | | | | | | | | | | | | | | | | | | | | | | | | | | | | | | | | | | | | | | | | | | | | | | | | | | | | | | | | | | | | | | | | | | | | | | + + + + + + + | | | | | active | 10MG | | | | | | | | | | | | | | | | | | | | | | | | | | | | | | | | | | | | | | | | | | | | Lasix | | | | | | | | | | | | | | | | | | | | | | | | | | | | | | | | | | | | | | | | | | | | | | | | | | | | | | | | | | | | | | | | | | | | | | | | | | | | + + + + + + + | | | | | active | | | | | | | | | | | | | | | | | | | | | | | | | | | | | | | | | | | | | | | | | | | | | Ibudone | | | | | | | 10 mg-200 | | | | | | | mg | | | | | | | tablet | | | | | | | | | | | | | | | | | | | | | | | | | | | | | | | | | | | | | | | | | | | | | | | | | | | | | | | | | | | | | | | | | | | | | | | | | | | | + + + + + + + | | | | | completed | | | | | | | | | | | | | 05/02/201 | | | | | | | 8 | | | | | | | | | | | | | | | | | | | | | | | | | Ibrance | | | | | | | 125 mg | | | | | | | capsule | | | | | | | | | | | | | | | | | | | | | | | | | | | | | | | | | | | | | | | | | | | | | | | | | | | | | | | | | | | | | | | | | | | | | | | | | | | | + + + + + + + | | | | | active | | | | | | | | | | | | | | | | | | | | | | | | | | | | | | | | INHALE 2 | | | | | | | PUFFS | | | | | | ProAir | EVERY 6 | | | | | | RespiClic | HOURS | | | | | | k 90 | NEEDED | | | | | | mcg/actua | FOR | | | | | | tion | SHORTNESS | | | | | | breath | OF | | | | | | activated | BREATH | | | | | | | | | | | | | | | | | | | | | | | | | | | | | | | | | | | | | | | | | | | | | | | | | | | | | | | | | | | | | | | | | | | | | | | | | | | + + + + + + + | | | | | completed | | | | | | | | | | | | 03// | 05//201 | | | | | | 8 | 8 | | | | | | | | | | | | Inject 2 | | | | | | | mL by | | | | | | Gelsyn-3 | intra-art | | | | | | 16.8 | icular | | | | | | mg/2 mL | route for | | | | | | intra-art | 21 days. | | | | | | icular | | | | | | | syringe | | | | | | | | | | | | | | | | | | | | | | | | | | | | | | | | | | | | | | | | | | | | | | | | | | | | | | | | | | | | | | | | | | | | | | | | | | | | + + + + + + + | | | | | active | | | | | | | | | | | | | | | | | | | | | | | | | | | | | | | | | | | | | | | | | | | | | Kisqali | | | | | | | 600 | | | | | | | mg/day | | | | | | | (200 mg x | | | | | | | 3) | | | | | | | tablet | | | | | | | | | | | | | | | | | | | | | | | | | | | | | | | | | | | | | | | | | | | | | | | | | | | | | | | | | | | | | | | | | | | | | | | | | | | | + + + + + + + | | | | | completed | | | | | | | | | | | | | 04/21/202 | | | | | | | 0 | | | | | | | | | | | | | | | | | | | | | | | | | Kisqali | | | | | | | 200 | | | | | | | mg/day | | | | | | | (200 mg x | | | | | | | 1) | | | | | | | tablet | | | | | | | | | | | | | | | | | | | | | | | | | | | | | | | | | | | | | | | | | | | | | | | | | | | | | | | | | | | | | | | | | | | | | | | | | | | | + + + + + + + History of Present Illness None recorded. Physical Exam + + + | | | | | | | | | | | | + + + | | None recorded. | | Notes: | | | | | | | | + + + Review of Systems None recorded. Vitals None Recorded Social History + + + | | Never Smoker (Never) | | Smoking Status | | | | | | | | + + + | Sex | Female | | | | + + + Functional Status + + + | | Yes | | Able to Care for Self | | | | | | | | + + + Mental Status None recorded. Family History + + + + + + + | Relations | Descripti | Onset Age | of | Resolved | Notes | | hip | on | | this Age | Age | | | | | | | | | | | | | | | | | | | | | | | | | | | | | | + + + + + + + | Father | Heart | | | | | | | disease | | | | | | | | | | | | | | | | | | | | | | | | | | | | | | | | | + + + + + + + | Mother | Cerebrova | | | | | | | scular | | | | | | | accident | | | | | | | | | | | | | | | | | | | | | | | | | | | | | | | | | + + + + + + + GA-father ,CVA-mother, GRAND FATHER -HEART Medical History + + + | Condition | Response | | | | + + + | Seizures/Epilepsy | N | | | | + + + | Bleeding Disorder | N | | | | + + + | Relative with stroke/cva | N | | | | + + + | Swelling in legs/feet | N | | | | + + + | HIV or AIDS | N | | | | + + + | Angina | N | | | | + + + | Breast Cancer | Y | | | | + + + | Urinary Tract Infection | N | | | | + + + | Gastric Reflux | N | | | | + + + | Kidney Stones | N | | | | + + + | Recent Change in Bowel Habits | N | | | | + + + | Bloating | N | | | | + + + | Deep Vein Thrombosis | N | | | | + + + | Back Pain | N | | | | + + + | Asthma | Y | | | | + + + | Alcoholism | N | | | | + + + | Circulation Problems | N | | | | + + + | Breast Pain | N | | | | + + + | Stroke | N | | | | + + + | Diabetes | N | | | | + + + | Constipation | N | | | | + + + | Insomnia | N | | | | + + + | Swelling of Ankles, Feet or Hands | N | | | | | | | + + + | Peptic Ulcer (stomach or duodenal) | N | | | | | | | + + + | Blurred Vision | N | | | | + + + | Colon Polyps | N | | | | + + + | Cancer | Y | | | | + + + | Regurgitation | N | | | | + + + | Headache | N | | | | + + + | Thyroid Problems | Y | | | | + + + | Heart Murmur | N | | | | + + + | Good Pastures | N | | | | + + + | Hepatitis | N | | | | + + + | Shortness of Breath | N | | | | + + + | Difficulty Walking | N | | | | + + + | Heart Disease | Y | | | | + + + | Yellow Jaundice | N | | | | + + + | Ulcerative Colitis | N | | | | + + + | Rectal Bleeding | N | | | | + + + | Muscle Pain | N | | | | + + + | GERD | N | | | | + + + | Complication To Anesthesia | N | | | | + + + | Breast Lump | N | | | | + + + | Lung Disease | N | | | | + + + | Glaucoma | N | | | | + + + | Pancreatitis | N | | | | + + + | Gastrointestinal Disease | N | | | | + + + | Blood in Urine | N | | | | + + + | Recent Weight Change | N | | | | + + + | Depression | N | | | | + + + | Cold feet and legs | N | | | | + + + | Wheezing | N | | | | + + + | Sores on legs | N | | | | + + + | Warfarin Management | N | | | | + + + | Difficulty Swallowing | N | | | | + + + | Fatigue | N | | | | + + + | Black, Tarry Stools | N | | | | + + + | Rheumatic Fever | N | | | | + + + | High Blood Pressure | N | | | | + + + | Frequent Urination | N | | | | + + + | Discolored feet and legs | N | | | | + + + | Aortic Aneurysm | N | | | | + + + | Numbness | N | | | | + + + | Gallbladder disease | N | | | | + + + | Kidney Failure | N | | | | + + + | STOMACH OR GI ULCERS | Y | | | | + + + | Emphysema | N | | | | + + + | Fever | N | | | | + + + | Spitting up Blood | N | | | | + + + | Anemia | N | | | | + + + | Mouth Sores | N | | | | + + + | Diarrhea | N | | | | + + + | Kidney Disease | N | | | | + + + | Palpitation | N | | | | + + + | Hearing Loss | N | | | | + + + | Blood Clots | N | | | | + + + | Diverticulitis | N | | | | + + + | Abdominal Pain | N | | | | + + + | High Cholesterol | N | | | | + + + | Leg or Foot Ulcers | N | | | | + + + | Memory Loss or Confusion | N | | | | + + + | Chronic or frequent cough | N | | | | + + + | Burning with Urination | N | | | | + + + | Bleeding or Bruising tendency | N | | | | + + + | Enlarged Glands | N | | | | + + + | Excessive Thirst or Urination | N | | | | + + + | Ringing in Ears | N | | | | + + + | Nausea or Vomiting | N | | | | + + + | Hiatal Hernia | N | | | | + + + | Poor Appetite | N | | | | + + + | Loss of Appetite | N | | | | + + + | Arthritis | Y | | | | + + + | Mitral Valve Prolapse | N | | | | + + + | Varicose Veins | N | | | | + + + | Reflux | N | | | | + + + | Liver Disease | N | | | | + + + | Peripheral Arterial Disease | N | | | | + + + | Itching | N | | | | + + + | Gallstones | N | | | | + + + | Elevated Cholesterol | N | | | | + + + | Gout | Y | | | | + + + | Peripheral Vascular Disease (PVD) | N | | | | | | | + + + | Joint Pain or Swelling | N | | | | + + + | Abnormal Mammogram | N | | | | + + + | Phlebitis | N | | | | + + + | Sexually Transmitted Disease | N | | | | + + + | Blood Transfusions | N | | | | + + + | Angioplasty (balloon) | N | | | | + + + | Heartburn | Y | | | | + + + | Crohns Disease | N | | | | + + + | Heat or cold intolerance | N | | | | + + + | Belching | N | | | | + + + Gynecological History No gynecological history recorded. Obstetrics History GPAL: G 0 P 0 0 0 0 Immunizations None recorded. Past Encounters None Reported. Goals Section + + + + + + + | Goal | Descripti | Status | Start | Updated | Updated | | | on | | Date | by | on | | | | | | | | | | | | | | | | | | | | | | | | | | | | | + + + + + + + + + | None Recorded | + + Health Concerns Section + + | Related Observation | + + | None Recorded | + + + + + + + | Concern | Status | Updated by | Updated on | | | | | | | | | | | | | | | | + + + + + | None Recorded | | | | | | | | | | | | | | | | | | | + + + + +"
--- NOTE | 2021-02-10 15:32 | NUR ---
RESTING QUIETLY IN BED. ZOFRAN GIVEN PO ORDERED AND REQUESTED. TOP OF GLUTEAL CREVICE HAS RAW EDGE IN IT. JUAN APPLIED TO COCCYX. CALL LIGHT IN REACH
[2021-02-10 16:19] VITALS: Ht 162.6 cm; Wt 70.3 kg
[2021-02-10 19:56] VITALS: BP 114/39
--- NOTE | 2021-02-10 20:00 | NUR ---
PT CONTINUES VISITING WITH FAMILY, NO NEEDS VOICED
--- NOTE | 2021-02-10 20:45 | NUR ---
PT TOBACCO SCRAP SIFTER LIGHT, CLUB MANAGER ASSISTED PT TO BR VIA WC
--- NOTE | 2021-02-10 20:55 | NUR ---
PT BACK TO BED, HAD LOOSE STOOL, RESP TREATMENT STARTED PER RESP THERAPIST
--- NOTE | 2021-02-10 21:06 | NUR ---
ASSESSMENT PER FLOW SHEET, VS OBTAINED PER PASSENGER BRAKEMAN, INC TO RIGHT HIP WITH MIKAEL CDI WITH NO DRAINAGE, JUAN ON BUTTOCK, PT C/O HIP PAIN, ADM 2100 MEDS AND PAIN MED PER MD ORDERS, SEE EMAR, PT BRUSHED TEETH, DENIES FURTHER NEEDS, FALL PRECAUTIONS IN PLACE
--- NOTE | 2021-02-10 22:30 | NUR ---
PT RESTING WITH EYES CLOSED, RESP QUIET, NO DISTRESS NOTED, LEFT UNDISTURBED AT THIS TIME, FALL PRECAUTIONS IN PLACE
--- NOTE | 2021-02-11 | NUR ---
PT RESTING WITH EYES CLOSED, RESP QUIET, NO DISTRESS NOTED, LEFT UNDISTURBED AT THIS TIME, FALL PRECAUTIONS IN PLACE
--- NOTE | 2021-02-11 02:25 | NUR ---
PT RESTING WITH EYES CLOSED, RESP QUIET, NO DISTRESS NOTED, LEFT UNDISTURBED AT THIS TIME, FALL PRECAUTIONS IN PLACE
--- NOTE | 2021-02-11 05:50 | NUR ---
PT AWAKE, PT UP TO BR VIA WC WITH ASSISTANCE, VOIDED WITH NO DIFFICULTY, CALMOSEPTINE APPLIED BETWEEN BUTTOCK, PT BACK TO BED, C/O PAIN, WILL ADM PAIN MED, FALL PRECAUTIONS IN PLACE
--- NOTE | 2021-02-11 06:01 | NUR ---
ADM 0600/0700 MEDS AND PAIN MED PER MD ORDERS, SEE EMAR, WITH FRESH H20, PT DENIES FURTHER NEEDS, RESP TO ROOM FOR 0700 TREATMENT
[2021-02-11 07:00] VITALS: BP 128/54
[2021-02-11 08:00] VITALS: BP 128/54
[2021-02-11 08:34] LABS: HEMATOCRIT 25.2 % (36.0-48.0); HEMOGLOBIN 8.4 g/dL (12-16); MCH 33.6 pg (26.0-34.0); MCHC 33.4 g/dL (31.0-37.0); MEAN PLATELET VOLUME 8.3 fL (7.4-10.4); PLATELET COUNT 129 10x3/uL (130-400); RDW 21.4 % (11.5-14.5)
[2021-02-11 08:43] LABS: ANION GAP 11.2 mmol/L (8-16); CARBON DIOXIDE 27.9 mmol/L (21.0-32.0); CREATININE - SERUM 1.3 mg/dL (0.6-1.3); POTASSIUM - SERUM 4.1 mmol/L (3.5-5.1)
[2021-02-11 08:55] LABS: MCV 100.7 fL (80.0-100.0); WBC 2.8 10x3/uL (4.8-10.8)
[2021-02-11 14:13] LABS: EOSINOPHILS 3 % (0-7); LYMPHOCYTES 15 % (15-50); MONOCYTES 12 % (2-11); NEUTROPHILS 70 % (40-80); PLATELET ESTIMATE NORMAL
--- NOTE | 2021-02-11 19:37 | NUR ---
RESTING IN BED, NO DISTRESS NOTED, FAMILY IN ROOM, SL IN PLACE TO LFA, CONT TO MONITOR PAIN
[2021-02-11 21:31] VITALS: BP 118/40
[2021-02-11 22:45] LABS: BASOPHILS 2.8 % (0-2); EOSINOPHILS 4.4 % (0-7); HEMATOCRIT 25.5 % (36.0-48.0); HEMOGLOBIN 8.6 g/dL (12-16); LYMPHOCYTES 19.6 % (15-50); MCH 33.8 pg (26.0-34.0); MCHC 33.7 g/dL (31.0-37.0); MCV 100.3 fL (80.0-100.0); MEAN PLATELET VOLUME 8.7 fL (7.4-10.4); MONOCYTES 18.9 % (2-11); NEUTROPHILS 54.3 % (40-80); RBC 2.54 10x6/uL (4.00-5.40); RDW 20.8 % (11.5-14.5); WBC 3.3 10x3/uL (4.8-10.8)
[2021-02-11 22:55] LABS: PLATELET COUNT 160 10x3/uL (130-400)
[2021-02-12 05:58] VITALS: BP 153/57
--- NOTE | 2021-02-12 08:00 | NUR ---
SHIFT ASSMT COMPLETED.CL IN REACH.ALARM ON.
--- NOTE | 2021-02-12 08:00 | NUR ---
SHIFT ASSMT COMPLETED.CL IN REACH.INCISIONS HEALING RIGHT HIP
--- NOTE | 2021-02-12 09:30 | NUR ---
UP IN ROOM ;ALARM GOING OFF.WAS UP AMBULATING WITH HOUSEHEEPING HOLDING ONTO PT.WILL SPEAK WITH .
--- NOTE | 2021-02-12 12:00 | NUR ---
EATING LUNCH.CL IN REACH.
--- NOTE | 2021-02-12 12:00 | NUR ---
HERE.WILL BE STAYING FOR SAFETY.
[2021-02-12 19:33] VITALS: BP 114/37
--- NOTE | 2021-02-12 19:51 | NUR ---
AWAKE AND ALERT. RESTING IN BED WITH RESPIRATIONS UNLABORED. 2 INCISIONS TO RIGHT HIP OPEN TO AIR. TOP INCISION WITH DRESSING INTACT. VISITING WITH . NO DISTRESS NOTED. CALL LIGHT IN REACH.
--- NOTE | 2021-02-13 05:09 | NUR ---
QUIET HOURS. NO ACUTE CHANGES IN CONDITION THIS SHIFT. RESTING IN BED WITH RESPIRATIONS UNLABORED. NO DISTRESS NOTED.
[2021-02-13 06:24] LABS: CALCIUM 8.3 mg/dL (8.5-10.1); CARBON DIOXIDE 27.7 mmol/L (21.0-32.0); CREATININE - SERUM 1.6 mg/dL (0.6-1.3); POTASSIUM - SERUM 4.7 mmol/L (3.5-5.1)
[2021-02-13 06:32] LABS: HEMATOCRIT 24.9 % (36.0-48.0); HEMOGLOBIN 8.4 g/dL (12-16); MCHC 33.9 g/dL (31.0-37.0); MCV 100.5 fL (80.0-100.0); MEAN PLATELET VOLUME 8.2 fL (7.4-10.4); PLATELET COUNT 177 10x3/uL (130-400); RBC 2.48 10x6/uL (4.00-5.40); RDW 20.4 % (11.5-14.5); WBC 3.1 10x3/uL (4.8-10.8)
[2021-02-13 07:00] VITALS: BP 156/51
[2021-02-13 11:30] LABS: EOSINOPHILS 5 % (0-7); LYMPHOCYTES 23 % (15-50); MONOCYTES 12 % (2-11); NEUTROPHILS 60 % (40-80); PLATELET ESTIMATE NORMAL
--- NOTE | 2021-02-13 12:13 | NUR ---
Nutrition Follow-up/Re-assessment: Diet: Regular PO intake: ~88% average x last 6 meals Last BM: 02/13/21 Wt: 155# (02/10/21) Meds noted: senokot, kdur, bumex Labs noted: BUN 52(H), Cr 1.6(H), GFR 33(L) Estimated nutrition needs and nutrition goals remain unchanged from initial assessment. Nutrition diagnosis of inadequate energy intake - IMPROVED Recommend continue current diet. RD will follow-up 02/18/21.
--- NOTE | 2021-02-13 12:32 | NUR ---
SPOKE WITH PATIENT SON JUNIOR ELIZONDO THIS AM HE WOUOLD LIKE PATIENT RECORDS FAXED TO [facility] IN [place] FOR ADMISSION NEXT WEEK. FAX # , PHONE # . REFERRAL FAXED
--- NOTE | 2021-02-13 12:39 | NUR ---
SITTING UP IN WC IN ROOM EATING LUNCH. DENIES INCREASED PAIN OR NEEDS. RT HIP INCISIONS HAVE NO S/S INFECTION. CALL LIGHT IN REACH
--- NOTE | 2021-02-13 20:21 | NUR ---
AWAKE AND ALERT. RESTING IN BED WITH RESPIRATIONS UNLABORED. LEFT FOREARM SALINE LOCK INTACT WITH NO SIGNS OF INFILTRATION. VISITING WITH . RIGHT HIP INCISIONS OPEN TO AIR WITH TOP ONE DURABONDED. NO ACUTE DISTRESS NOTED. CALL LIGHT IN REACH.
[2021-02-13 20:46] VITALS: BP 127/38
--- NOTE | 2021-02-14 05:27 | NUR ---
QUIET HOURS. NO ACUTE CHANGES IN CONDITION THIS SHIFT. RESTING IN BED WITH NO DISTRESS NOTED.
[2021-02-14 06:22] LABS: BASOPHILS 3.2 % (0-2); EOSINOPHILS 4.7 % (0-7); HEMATOCRIT 24.3 % (36.0-48.0); HEMOGLOBIN 8.1 g/dL (12-16); LYMPHOCYTES 22.3 % (15-50); MCH 33.9 pg (26.0-34.0); MCHC 33.4 g/dL (31.0-37.0); MCV 101.7 fL (80.0-100.0); MEAN PLATELET VOLUME 7.7 fL (7.4-10.4); MONOCYTES 12.7 % (2-11); NEUTROPHILS 57.1 % (40-80); RBC 2.39 10x6/uL (4.00-5.40); RDW 20.2 % (11.5-14.5)
[2021-02-14 06:42] LABS: ANION GAP 10.3 mmol/L (8-16); CALCIUM 8.6 mg/dL (8.5-10.1); CARBON DIOXIDE 27.4 mmol/L (21.0-32.0); CREATININE - SERUM 1.6 mg/dL (0.6-1.3); PLATELET COUNT 220 10x3/uL (130-400); POTASSIUM - SERUM 4.7 mmol/L (3.5-5.1)
[2021-02-14 07:00] VITALS: BP 127/74
--- NOTE | 2021-02-14 15:01 | NUR ---
RESTING QUIETLY IN BED. DECLINED TO SIT UP IN WC EARLIER STATING SHE JUST WANTED TO GO BACK TO BED AND REST. MEDS FOR CONSTIPATION GIVE, NO RESULTS YET. INCISION SHOWS NO S/S INFECTION SO FAR. CALL LIGHT IN REACH.
--- NOTE | 2021-02-14 18:47 | NUR ---
LARGE IMPACTION REMOVED.
[2021-02-14 19:00] VITALS: BP 114/42
--- NOTE | 2021-02-14 19:32 | NUR ---
I have reviewed this patient and I concur with the Shift Assessment completed by the Licensed Practical Nurse today this shift.
--- NOTE | 2021-02-14 20:00 | NUR ---
PATIENT RECEIVED SITTING UP IN BED. ASSESSMENT & VITAL SIGNS DONE. INCONTINENT OF BOWEL & BLADDER. DRY AT THIS TIME. BED LOW. ALARM ON. CALL LIGHT WITHIN REACH. WILL CONTINUE TO MONITOR.
--- NOTE | 2021-02-15 01:40 | NUR ---
PATIENT EYES CLOSED. RESPIRATIONS 18 & EVEN. BED LOW. ALARM ON. AT BEDSIDE. WILL CONTINUE TO MONITOR.
--- NOTE | 2021-02-15 01:47 | NUR ---
PATIENT EYES CLOSED. RESPIRATIONS 18 & EVEN. BED LOW. BEDSIDE TABLE & CALL LIGHT WITHIN REACH. WILL CONTINUE TO MONITOR.
--- NOTE | 2021-02-15 05:47 | NUR ---
PATIENT BUMEX PILL DROPPED IN FLOOR. NEW BUMEX OUT OF PIXIS.
[2021-02-15 07:00] VITALS: BP 136/50
--- NOTE | 2021-02-15 12:55 | NUR ---
SITTING UP IN BED FINISHING LUNCH. HAS BEEN UP AND HAD A SHOWER THIS MORNING. DENIES NEEDING TO HAVE BM SINCE IMPACTION REMOVED YESTERDAY. INCISION TO RT HIP SHOWS NO S/S INFECTION. SHE IS IGIUGIG. BED IN LOWEST POSITION, SIDE RAILS UP X2. CALL LIGHT IN REACH
--- NOTE | 2021-02-15 19:39 | NUR ---
PATIENT RECEIVED SITTING UP IN BED. ASSESSMENT & VITAL SIGNS DONE. NO C/O PAIN OR DISTRESS. BED LOW. ALARM ON. CALL LIGHT WITHIN REACH. WILL CONTINUE TO MONITOR.
[2021-02-15 21:15] VITALS: BP 137/42
--- NOTE | 2021-02-15 23:46 | NUR ---
I have reviewed this patient and I concur with the Shift Assessment completed by the Licensed Practical Nurse today this shift.
--- NOTE | 2021-02-16 01:36 | NUR ---
PATIENT EYES CLOSED. RESPIRATIONS 18 & EVEN. CALL LIGHT & BEDSIDE TABLE WITHIN REACH. BED LOW. WILL CONTINUE TO MONITOR.
[2021-02-16 08:20] VITALS: BP 140/48
[2021-02-16] MEDS ORDERED: PERFOROMIS20 MCG/21 INH (08:56)
[2021-02-16] MEDS ORDERED: HYDROCODON-ACE1 EA10 PO (08:56)
--- NOTE | 2021-02-16 12:09 | NUR ---
SITTING UP IN WC IN ROOM FOR LUNCH. RT HIP HAS NO S/S INFECTION. INCISIONS ARE WELL APPROXIMATED. IS CONT OF B/B. CALL LIGHT IN REACH
[2021-02-16 19:36] VITALS: BP 111/37
--- NOTE | 2021-02-16 19:42 | NUR ---
AWAKE AND ALERT. RESTING IN BED WITH RESPIRATIONS UNLABORED. INCISIONS TO RIGHT HIP OPEN TO AIR. SALINE LOCK INTACT TO LEFT HAND IN PLACE WITH NO SIGNS OF INFILTRATION. NO DISTRESS NOTED. CALL LIGHT IN REACH.
--- NOTE | 2021-02-17 05:08 | NUR ---
QUIET HOURS. NO ACUTE CHANGES IN CONDITION THIS SHIFT. RESTING IN BED WITH NO DISTRESS NOTED.
--- NOTE | 2021-02-17 08:00 | NUR ---
SHIFT ASSMT COMPLETED.CL IN REACH.PLAN TO DISCHARGE TO [facility]
[2021-02-17 08:12] VITALS: BP 144/45
--- NOTE | 2021-02-17 09:55 | NUR ---
PATIENT DISCHARGING TO [place] WITH SON JUNIOR AND ADMITTING TO [facility]. NO HOME HEALTH OR DME NEEDED AT THIS TIME. PATIENT SONJUNIOR IS ARRANGING FOR FOLLOW UP APPOINTMENTS IN [place] REPORT CALLED TO NURSE PER PRIMARY NURSE. AEDLE SIGNED, IMM SERVED AND EXPLAINED, ONE GIVEN TO PATIENT AND ONE FILED IN CHART.
--- NOTE | 2021-02-17 10:21 | NUR ---
REVIEWED MEDS AND INSTRUCTIONS.DAUGHTER HERE FOR TRANSPORT.DISCHARGED IN STABLE CONDITION.
--- NOTE | 2021-02-17 11:05 | NUR ---
DISCHARGED WITH SON.
== END 2021-02-17 10:50 | disposition home or self-care (01) | DRG 560 ==
LOC: D.REHAB 17:51
PROVIDERS: ADMIT Emergency Medicine; ATTEND Emergency Medicine
DX: S42.141D Displaced fracture of glenoid cavity of scapula, right shoulder, subsequent encounter for fracture with routine healing (principal); N17.9 Acute kidney failure, unspecified; C78.02 Secondary malignant neoplasm of left lung; C78.01 Secondary malignant neoplasm of right lung; D61.818 Other pancytopenia; W19.XXXD Unspecified fall, subsequent encounter; Z85.3 Personal history of malignant neoplasm of breast; Z85.118 Personal history of other malignant neoplasm of bronchus and lung; C50.919 Malignant neoplasm of unspecified site of unspecified female breast; R26.2 Difficulty in walking, not elsewhere classified; E87.8 Other disorders of electrolyte and fluid balance, not elsewhere classified; R53.83 Other fatigue; H91.90 Unspecified hearing loss, unspecified ear; E83.51 Hypocalcemia; Z95.0 Presence of cardiac pacemaker; D53.9 Nutritional anemia, unspecified; F32.9 Major depressive disorder, single episode, unspecified; R73.9 Hyperglycemia, unspecified; R53.1 Weakness